=== PATIENT | female | born 1940 | race Caucasian/White ===

== ENCOUNTER 2016-06-06 17:44 | Inpatient (IN) | payer OTHER ==
[2016-06-06] MEDS ORDERED: VANCOMYCIN 1 GRAM (PRE-DOCKED) 250 ML IVPB ONE ×2 (18:31→20:14)
[2016-06-06] MEDS ORDERED: CEFEPIME HCL 2 GM VIAL (RESTRICTED TO ID) IVPB ONE (18:31)
[2016-06-06] MEDS ORDERED: CEFEPIME 2 GM/100 ML BAG PRE-DOCKED IVPB ONE (19:00)
[2016-06-06 20:16] LABS: VENOUS PH 7.47 (7.31-7.41)
[2016-06-06 20:17] LABS: MCH 28.5 pg (25.7-33.7); MCHC 33.9 g/dl (32.0-36.0); MEAN CELL VOLUME 84.1 fl (80-96); MEAN PLT VOLUME 9.9 fl (7.5-11.1); RDW 15.3 % (11.6-15.6); VENOUS BLOOD GAS HCO3 25.7 meq/L (22-29)
[2016-06-06 20:20] LABS: PLATELET COUNT 8 K/MM3 (134-434); WHITE BLOOD COUNT 0.5 K/mm3 (4.0-10.0)
[2016-06-06 20:43] LABS: ALBUMIN 2.2 g/dl (3.4-5.0); ANION GAP 10 (8-16); BILIRUBIN,TOTAL 1.1 mg/dL (0.2-1.0); CALCIUM 8.1 mg/dL (8.5-10.1); CO2 25 mmol/L (21-32); CREATININE 1.1 mg/dL (0.55-1.02); GLUCOSE,RANDOM 155 mg/dL (74-106); TOT PROT 6.9 g/dl (6.4-8.2)
[2016-06-06 20:45] LABS: TROPONIN I < 0.02 ng/ml (0.00-0.05)
[2016-06-06 20:46] LABS: ALK PHOS 101 U/L (45-117); SGOT/AST 25 U/L (15-37); SGPT/ALT 67 U/L (12-78)
--- NOTE | 2016-06-06 20:46 | PDOC ---
History of Present Illness - General History Source: Patient, Family Exam Limitations: No Limitations - History of Present Illness Initial Comments: 06/06/16 22:16 The patient is a 75 year old female with a PMHx of Waldenstrom lymphoma who presents to the ED with fever (Tmax 105) since yesterday. Patient reports weakness and SOB. She reports low appetite. She denies any current pain. The patients daughter states that she fell out of bed four times last night, and fell in the bathroom once. <Farzaneh Murray - Last Filed: 06/07/16 00:54> <Lizbeth Thornton - Last Filed: 06/09/16 13:57> - General Chief Complaint: SIRS, Suspected/Possible Stated Complaint: HIGH FEVER POSSIBLE SEPSIS Time Seen by Provider: 06/06/16 19:42 Past History <Farzaneh Murray - Last Filed: 06/07/16 00:54> - Past Medical History Cancer: Yes (LYMPHOMA SINCE 2003.) - Psycho/Social/Smoking Cessation Hx Anxiety: No Suicidal Ideation: No Smoking History: Former smoker Have you smoked in the past 12 months: No If you are a former smoker, when did you quit?: 1999 Information on smoking cessation initiated: No Hx Alcohol Use: No Drug/Substance Use Hx: No <Lizbeth Thornton - Last Filed: 06/09/16 13:57> - Past Medical History Allergies/Adverse Reactions: Allergies Allergy/AdvReac Type Severity Reaction Status Date / Time No Known Allergies Allergy Verified 06/06/16 18:43 Home Medications: Ambulatory Orders Calcium Carbonate/Vitamin D3 [Calcium 600 + Vit D 200 Tablet] 1 each PO BID 03/12 Gabapentin [Neurontin -] 100 mg PO TID 06/06/16 Gluc Schmitz/Chondro Schmitz A/Vit C/Mn [Glucosamine 1,500 Complex Cp] 1 each PO DAILY 03/12 Montelukast Na [Singulair -] 10 mg PO DAILY 06/06/16 Multivitamin with Minerals [Icaps Plus] 1 each PO DAILY 06/06/16 Omeprazole 20 mg PO DAILY 06/06/16 Valacyclovir HCl [Valtrex -] 500 mg PO BID 06/06/16 Alendronate Na [Fosamax] 70 mg PO Q7D 06/07/16 Biotin 10,000 mcg PO DAILY 06/07/16 Lactobacillus Acidophilus [Acidophilus] 1 each PO DAILY 06/07/16 Magnesium Oxide [Magnesium] 500 mg PO DAILY 06/07/16 Selenium 200 mcg PO DAILY 06/07/16 Vitamin B Complex/Minerals [Sm Stress Formula+Zinc Tablet] 1 each PO DAILY 06/07 Zinc 50 mg PO DAILY 06/07/16 Review of Systems - Review of Systems Comments:: 06/06/16 22:16 GENERAL/CONSTITUTIONAL: + fever, no chills. No weakness. HEAD, EYES, EARS, NOSE AND THROAT: No change in vision. No ear pain or discharge. No sore throat. CARDIOVASCULAR: No chest pain or shortness of breath. RESPIRATORY: No cough, wheezing, or hemoptysis. GASTROINTESTINAL: No nausea, vomiting, diarrhea or constipation. GENITOURINARY: No dysuria, frequency, or change in urination. MUSCULOSKELETAL: No joint or muscle swelling or pain. No neck or back pain. SKIN: No rash NEUROLOGIC: No headache, vertigo, loss of consciousness, or change in strength/ sensation. ENDOCRINE: No increased thirst. No abnormal weight change. HEMATOLOGIC/LYMPHATIC: No anemia, easy bleeding, or history of blood clots. ALLERGIC/IMMUNOLOGIC: No hives or skin allergy. <Farzaneh Murray - Last Filed: 06/07/16 00:54> *Physical Exam - Vital Signs Last Vital Signs Temp Pulse Resp BP Pulse Ox 103.0 F H 114 H 22 99/57 96 06/06/16 18:41 06/06/16 18:41 06/06/16 18:41 06/06/16 18:41 06/06/16 18:41 - Physical Exam Comments: 06/06/16 22:17 GENERAL: Awake, alert, and fully oriented, in no acute distress HEAD: No signs of trauma EYES: PERRLA, EOMI, sclera anicteric, conjunctiva clear ENT: Auricles normal inspection, hearing grossly normal, nares patent, oropharynx clear without exudates. Moist mucosa NECK: Normal ROM, supple, no lymphadenopathy, JVD, or masses LUNGS: Breath sounds equal, clear to auscultation bilaterally. No wheezes, and no crackles HEART: Regular rate and rhythm, normal S1 and S2, no murmurs, rubs or gallops ABDOMEN: Soft, nontender, normoactive bowel sounds. No guarding, no rebound. No masses EXTREMITIES: Normal range of motion, no edema. No clubbing or cyanosis. No cords, erythema, or tenderness NEUROLOGICAL: Cranial nerves II through XII grossly intact. Normal speech, normal gait SKIN: Warm, Dry, normal turgor, no rashes or lesions noted. <Farzaneh Murray - Last Filed: 06/07/16 00:54> - Vital Signs Last Vital Signs Temp Pulse Resp BP Pulse Ox 103.0 F H 114 H 22 99/57 96 06/06/16 18:41 06/06/16 18:41 06/06/16 18:41 06/06/16 18:41 06/06/16 18:41 <Lizbeth Thornton - Last Filed: 06/09/16 13:57> ED Treatment Course - LABORATORY CBC & Chemistry Diagram: 06/06/16 20:00 06/06/16 20:00 - ADDITIONAL ORDERS Additional order review: Laboratory Results 06/06/16 06/06/16 06/06/16 20:00 20:00 20:00 INR PTT (Actin FS) VBG pH POC VBG pCO2 POC VBG pO2 Sodium 137 Potassium 3.7 Chloride 102 Carbon Dioxide 25 Anion Gap 10 BUN 37 H Creatinine 1.1 H Creat Clearance w eGFR 48.55 Random Glucose 155 H Lactic Acid 1.313 Calcium 8.1 L Total Bilirubin 1.1 H AST 25 ALT 67 Alkaline Phosphatase 101 Creatine Kinase 66 Troponin I < 0.02 Total Protein 6.9 Albumin 2.2 L Blood Type O POSITIVE Antibody Screen Positive H Crossmatch See Detail 06/06/16 06/06/16 20:00 20:00 INR 2.10 H PTT (Actin FS) 32.0 VBG pH 7.47 H POC VBG pCO2 35.5 L POC VBG pO2 25.2 L Sodium Potassium Chloride Carbon Dioxide Anion Gap BUN Creatinine Creat Clearance w eGFR Random Glucose Lactic Acid Calcium Total Bilirubin AST ALT Alkaline Phosphatase Creatine Kinase Troponin I Total Protein Albumin Blood Type Antibody Screen Crossmatch 06/06/16 20:00 RBC 2.06 L MCV 84.1 MCHC 33.9 RDW 15.3 MPV 9.9 Neutrophils % 12.0 L Lymphocytes % 80.0 H Monocytes % 6.0 Eosinophils % 2.0 - RADIOLOGY Radiograph Interpretation: 06/07/16 00:54 Chest XRay Reported by Dr. Martin Wu Impression: Mid inspiratory study with diffuse pulmonary interstitial prominence and no consolidated infiltrate - Medications Given in the ED: ED Medications Discontinued Medications Generic Name Dose Route Start Last Admin Trade Name Freq PRN Reason Stop Dose Admin Cefepime HCl 2 gm 06/06/16 19:00 06/06/16 20:58 Maxipime 2gm Ivpb (Pre-Docked) IVPB 06/06/16 19:01 2 gm ONCE ONE Administration Vancomycin HCl 250 mls @ 250 mls/hr 06/06/16 18:31 06/06/16 20:24 Vancomycin (Pre-Docked) IVPB 06/06/16 19:30 250 mls/hr ONCE ONE Administration <Farzaneh Murray - Last Filed: 06/07/16 00:54> - LABORATORY CBC & Chemistry Diagram: 06/09/16 05:00 06/09/16 05:00 - ADDITIONAL ORDERS Additional order review: Laboratory Results 06/06/16 06/06/16 06/06/16 20:00 20:00 20:00 VBG pH 7.47 H POC VBG pCO2 35.5 L POC VBG pO2 25.2 L Sodium 137 Potassium 3.7 Chloride 102 Carbon Dioxide 25 Anion Gap 10 BUN 37 H Creatinine 1.1 H Creat Clearance w eGFR 48.55 Random Glucose 155 H Lactic Acid 1.313 Calcium 8.1 L Total Bilirubin 1.1 H AST 25 ALT 67 Alkaline Phosphatase 101 Creatine Kinase 66 Troponin I < 0.02 Total Protein 6.9 Albumin 2.2 L 06/06/16 20:00 RBC 2.06 L MCV 84.1 MCHC 33.9 RDW 15.3 MPV 9.9 Neutrophils % Y Lymphocytes % Y - Medications Given in the ED: ED Medications Discontinued Medications Generic Name Dose Route Start Last Admin Trade Name Freq PRN Reason Stop Dose Admin Vancomycin HCl 250 mls @ 250 mls/hr 06/06/16 18:31 06/06/16 20:24 Vancomycin (Pre-Docked) IVPB 06/06/16 19:30 250 mls/hr ONCE ONE Administration <Lizbeth Thornton - Last Filed: 06/09/16 13:57> Medical Decision Making - Medical Decision Making 06/06/16 21:07 Patient Name: Ethel Lombardo THIS IS A FINALREPORT FROM [facility] DATE OF SERVICE: 2016-06-06 19:48:39.0 IMAGES: 2 EXAM: Portable chest x-ray HISTORY: Sepsis COMPARISON: None. FINDINGS:Portable AP view of the chest is available. There is poor inspiratory effort with mild interstitial prominence bilaterally. No consolidated infiltrate is seen. The aorta is atherosclerotic. No hilar or mediastinal adenopathy is seen IMPRESSION: Mid inspiratory study with diffuse pulmonary interstitial prominence and no consolidated infiltrate THIS DOCUMENT HAS BEEN ELECTRONICALLY SIGNED 06/06/16 22:[address] Jackson who is covering pt's oncologist, Dr. Torres. Dr. Jackson cannot accept the patient for transfer as it is a weekend and [facility]. He wants me to speak to the ER[facility]Urgent Care at [facility]. I called the ER doc, who will not accept the patient until her Hb is 7 or above and her platelets are 10 or above. Pt will get FFP for elevated INR and PRBC. She will be admitted to the hospitalist service for transfusion. <Lizbeth Thornton - Last Filed: 06/09/16 13:57> *DC/Admit/Observation/Transfer - Attestations Scribe Attestion: 06/06/16 22:17 Documentation prepared by Farzaneh Murray, acting as biomedical specialist for Lizbeth Thornton MD. <Farzaneh Murray - Last Filed: 06/07/16 00:54> - Discharge Dispostion Admit: Yes <Lizbeth Thornton - Last Filed: 06/09/16 13:57> Diagnosis at time of Disposition: Fever, Waldenstrom's disease
[2016-06-06 20:59] LABS: INR 2.1 (0.82-1.09); PROTHROMBIN TIME (PATIENT) 23.4 SEC (9.98-11.88)
[2016-06-06 21:46] LABS: ANISOCYTOSIS 2+; HYPOCHROMIA 2+; MICROCYTOSIS 2+; PLATELET ESTIMATE DECREASED (NORMAL); POLYCHROMASIA 1+; TARGET CELLS 1+
[2016-06-07] MEDS ORDERED: ACETAMINOPHEN 1000 MG/100 ML VIAL (NON FORMULARY) IVPB ONE ×2 (01:37→09:45)
[2016-06-07] MEDS ORDERED: ONDANSETRON 4 MG/2 ML VIAL IVPB PRN (02:16)
[2016-06-07] MEDS ORDERED: SODIUM CHLORIDE 1,000 ML IV SCH (02:30)
[2016-06-07] MEDS ORDERED: ACETAMINOPHEN INJECTION 100 ML IVPB ONE ×2 (02:38→10:04)
--- NOTE | 2016-06-07 02:44 | HP ---
<Ginette Barrera - Last Filed: 06/07/16 02:38> Problem List - Problem (1) Waldenstrom's disease Code(s): C88.0 - WALDENSTROM MACROGLOBULINEMIA (2) Neutropenic fever Code(s): D70.9 - NEUTROPENIA, UNSPECIFIED R50.81 - FEVER PRESENTING WITH CONDITIONS CLASSIFIED ELSEWHERE (3) Pancytopenia Code(s): D61.818 - OTHER PANCYTOPENIA Visit type - Emergency Visit Emergency Visit: Yes Care time: The patient presented to the Emergency Department on the above date and was hospitalized for further evaluation of their emergent condition. - New Patient This patient is new to me today: Yes Date on this admission: 06/07/16 - Critical Care Critical Care patient: Yes Total Critical Care Time (in minutes): 45 Critical Care Statement: The care of this patient involved high complexity decision making to prevent further life threatening deterioration of the patient 's condition and/or to evalute & treat vital organ system(s) failure or risk of failure. <Kalyan Clark - Last Filed: 06/07/16 04:13> CHIEF COMPLAINT: Fever PCP: HISTORY OF PRESENT ILLNESS: ATTENDING PHYSICIAN STATEMENT I saw and evaluated the patient. I reviewed the resident's note and discussed the case with the resident. I agree with the resident's findings and plan as documented. SUBJECTIVE: 75 year old female, accompanied by daughter, presented to the ED with subjective fever Tmax 105F for 2 days. As per the daughter the patient went to receive her normal transfusion 2 days ago with a subjective fever. Daughter stated that after the transfusion the patients fever went down and patient left despite doctors wanting to hold her. Daughter reported that overnight the patients fever spiked to Tmax 105F. Patient reported associated head fogginess and shaking. The patients daughter reported that her mother fell out of bed four times last night. As per daughter, patient passed a blood clot through her nose late yesterday secondary to her falls at home. The patient noted some gum bleeding when brushing her teeth a few days ago. As per daughter patient regularly receives 1 unit transfusions 3 times a week. As per daughter, patient has planned to begin a 3 week cycle of heavy chemotherapy beginning in 2 days so that she may qualify for a bone marrow transplant. The patient denied any blood in her stool, blood in her urine, and sick contacts. ER course was notable for: (1) Neutropenic fever (2) Pancytopenic (3) Waldernstrom's lymphoma Recent Travel: None reported PAST MEDICAL HISTORY: Waldenstroms lymphoma PAST SURGICAL HISTORY: None reported Social History: Smoking: Quit 22 years ago. Alcohol: Denied any use. Drugs: Denied any use. Family History: Father: of prostate cancer. Mother: dementia Allergies No Known Allergies Allergy (Verified 06/06/16 18:43) HOME MEDICATIONS: Home Medications Medication Instructions Recorded Calcium Carbonate/Vitamin D3 1 each PO BID 06/06/16 [Calcium 600 + Vit D 200 Tablet] Gabapentin [Neurontin -] 100 mg PO TID 06/06/16 Gluc Schmitz/Chondro Schmitz A/Vit C/Mn 1 each PO DAILY 06/06/16 [Glucosamine 1,500 Complex Cp] Montelukast Na [Singulair -] 10 mg PO DAILY 06/06/16 Multivitamin with Minerals [Icaps 1 each PO DAILY 06/06/16 Plus] Omeprazole 20 mg PO DAILY 06/06/16 Valacyclovir HCl [Valtrex -] 500 mg PO BID 06/06/16 REVIEW OF SYSTEMS CONSTITUTIONAL: Present: Fever Absent: chills, diaphoresis, generalized weakness, malaise, loss of appetite, weight change HEENT: Absent: rhinorrhea, nasal congestion, throat pain, throat swelling, difficulty swallowing, mouth swelling, ear pain, eye pain, visual changes CARDIOVASCULAR: Absent: chest pain, syncope, palpitations, irregular heart rate, lightheadedness , peripheral edema RESPIRATORY: Absent: cough, shortness of breath, dyspnea with exertion, orthopnea, wheezing, stridor, hemoptysis GASTROINTESTINAL: Absent: abdominal pain, abdominal distension, nausea, vomiting, diarrhea, constipation, melena, hematochezia GENITOURINARY: Absent: dysuria, frequency, urgency, hesitancy, hematuria, flank pain, genital pain MUSCULOSKELETAL: Absent: myalgia, arthralgia, joint swelling, back pain, neck pain SKIN: Absent: rash, itching, pallor HEMATOLOGIC/IMMUNOLOGIC: Absent: easy bleeding, easy bruising, lymphadenopathy, frequent infections ENDOCRINE: Absent: unexplained weight gain, unexplained weight loss, heat intolerance, cold intolerance NEUROLOGIC: Present: Head fogginess, shakes Absent: Focal weakness or paresthesias, dizziness, unsteady gait, seizure, mental status changes, bladder or bowel incontinence PSYCHIATRIC: Absent: anxiety, depression, suicidal or homicidal ideation, hallucinations. PHYSICAL EXAMINATION GENERAL: Awake, alert, and fully oriented, in no acute distress. (+) Febrile HEAD: Normal with no signs of trauma. EYES: Pupils equal, round and reactive to light, extraocular movements intact, sclera anicteric, conjunctiva clear. No lid lag. EARS, NOSE, THROAT: (+) Nose bruise. Ears normal, oropharynx clear without exudates. Moist mucous membranes. NECK: Normal range of motion, supple without lymphadenopathy, JVD, or masses. LUNGS: Breath sounds equal, clear to auscultation bilaterally. No wheezes, and no crackles. No accessory muscle use. HEART: Regular rate and rhythm, normal S1 and S2 without murmur, rub or gallop. ABDOMEN: Soft, nontender, not distended, normoactive bowel sounds, no guarding, no rebound, no masses. No hepatomegaly or splenomegaly. MUSCULOSKELETAL: Normal range of motion at all joints. No bony deformities or tenderness. No CVA tenderness. UPPER EXTREMITIES: 2+ pulses, warm, well-perfused. No cyanosis. No clubbing. Cap refill <2 seconds. No peripheral edema. LOWER EXTREMITIES: (+) Petechiae RLE and bilaterally at the knees. 2+ pulses, warm, well-perfused. No calf tenderness. No peripheral edema. NEUROLOGICAL: Cranial nerves II-XII intact. Normal speech. Normal gait. PSYCHIATRIC: Cooperative. Good eye contact. Appropriate mood and affect. SKIN: Warm, dry, normal turgor, no rashes or lesions noted. ASSESSMENT/PLAN: Neutropenic fever -IVF -Tylenol PRN -Continue with Cefepime daily -ID consult -Reverse isolation -Follow blood cultures -Absolute nucleophile count Pancytopenic-Discussed with lab about blood transfusion and patient has +H antibody so further evaluation is needed and blood will not be available until later today. However, we will transfuse platelets and FFP once patient is febrile. -Transfused Leukocyte reduced PRBC 1 unit -FFP -Repeat CBC post transfusion Waldernstrom's lymphoma -Hematology and oncology consult with Dr. Baker No DVT PPX -Due to low platelet count Plans discussed with patient and daughter and they expressed understanding Admit to Med surg. Documentation prepared by Kalyan Clark, acting as spanish medical interpreter for Dr. Ginette Barrera MD.
[2016-06-07] MEDS ORDERED: SODIUM CHLORIDE 500 ML IV STA ×2 (04:49→09:14)
[2016-06-07 06:16] LABS: MCH 28.6 pg (25.7-33.7); MCHC 33.9 g/dl (32.0-36.0); MEAN CELL VOLUME 84.3 fl (80-96); MEAN PLT VOLUME 7.2 fl (7.5-11.1); RDW 15.3 % (11.6-15.6)
[2016-06-07 06:26] LABS: WHITE BLOOD COUNT 0.3 K/mm3 (4.0-10.0)
[2016-06-07 06:27] LABS: PLATELET COUNT 13 K/MM3 (134-434)
[2016-06-07 07:05] LABS: URINE APPEARANCE SLCLOUDY; URINE BILIRUBIN NEGATIVE (NEGATIVE); URINE BLOOD NEGATIVE (NEGATIVE); URINE COLOR DKYELLOW; URINE GLUCOSE (UA) NEGATIVE (NEGATIVE); URINE KETONE NEGATIVE (NEGATIVE); URINE LEUK ESTERASE NEGATIVE (NEGATIVE); URINE NITRITE POSITIVE (NEGATIVE); URINE PROTEIN NEGATIVE (NEGATIVE); URINE UROBILINOGEN NEGATIVE E.U./dl (0.2-1.0)
[2016-06-07 07:10] LABS: URINE BACTERIA MANY /hpf (NONE SEEN); URINE MUCUS RARE; URINE RBC 1 /hpf (0-3); URINE WBC 3 /hpf (3-5)
[2016-06-07 07:53] LABS: ALBUMIN 2.1 g/dl (3.4-5.0)
[2016-06-07 08:18] LABS: CALCIUM 7.5 mg/dL (8.5-10.1)
[2016-06-07] MEDS ORDERED: SODIUM CHLORIDE 0.9% 1000 ML INFUS.BAG IV ONE (08:23)
[2016-06-07] MEDS ORDERED: CEFEPIME 100 ML IVPB ONE (08:40)
[2016-06-07] MEDS: DOPAMINE 400 MG/D5W - 250 ML IVPB SCH (08:45)
[2016-06-07] MEDS ORDERED: CEFEPIME 2 GM/100 ML BAG PRE-DOCKED IVPB ONE ×2 (09:00→10:00)
[2016-06-07] MEDS ORDERED: LIDOCAINE HCL 2% (20ML MULTI-DOSE VIAL) NR ONE (09:00)
--- NOTE | 2016-06-07 09:15 | PN ---
Progress Note (short form) - Note Progress Note: Subjective: feels tired. has no light headedness or visual changes , has no cp or palpitations or SOB. had fever since Wednesday last night, denies any diarrhea , or abd pain. has no urinary sx . no cough or sputum production . last time she received blood transfusion Wednesday. Last time she had Daratumunab was two weeks ago. In ER she received 1 unit of PLT , , 500 cc bolus of NS , and one dose of cefepime and vanco at 8 pm last night . blood cx was sent Objective: Vital Signs: Last Vital Signs Temp Pulse Resp BP Pulse Ox 97.9 F 97 H 18 75/50 98 06/07/16 08:07 06/07/16 08:07 06/07/16 08:07 06/07/16 08:07 06/07/16 08:07 I&O: Intake & Output 06/04/16 06/05/16 06/06/16 06/07/16 23:59 23:59 23:59 23:59 Weight 130 lb Physical Exam: NAd, awake alert and oriented x3 . pale and looks ill HEENT: no facial droop, round equal pupils , reactive to light , nl oropharynx , petechiae on soft palate . no exudate . dry MM no LAP in neck CV: RRR, tachy, no MRG Lungs : CTAB Abd: soft, NT, ND, NL BS Ext : no edema or erythema over upper or lower ext . bruises over the knees, no effusion Labs: Laboratory Results - last 24 hr 06/06/16 06/06/16 06/06/16 20:00 20:00 20:00 WBC 0.5 L RBC 2.06 L Hgb 5.9 L* Hct 17.3 L MCV 84.1 MCHC 33.9 RDW 15.3 Plt Count 8 L* MPV 9.9 Neutrophils % 12.0 L Lymphocytes % 80.0 H Monocytes % 6.0 Eosinophils % 2.0 Platelet Estimate Decreased Platelet Comment No clumping noted Polychromasia 1+ Hypochromic-Microcytic 2+ Basophilic Stippling Few Anisocytosis 2+ Microcytosis 2+ Target Cells 1+ INR 2.10 H PTT (Actin FS) 32.0 VBG pH 7.47 H POC VBG pCO2 35.5 L POC VBG pO2 25.2 L Sodium Potassium Chloride Carbon Dioxide Anion Gap BUN Creatinine Creat Clearance w eGFR Random Glucose Lactic Acid Calcium Total Bilirubin AST ALT Alkaline Phosphatase Creatine Kinase Troponin I Total Protein Albumin Urine Color Urine Appearance Urine pH Ur Specific [place] Urine Protein Urine Glucose (UA) Urine Ketones Urine Blood Urine Nitrite Urine Bilirubin Urine Urobilinogen Ur Leukocyte Esterase Urine RBC Urine WBC Ur Epithelial Cells Urine Bacteria Urine Mucus Anti-A Titer Blood Type Antibody Screen Crossmatch 06/06/16 06/06/16 06/06/16 20:00 20:00 20:00 WBC RBC Hgb Hct MCV MCHC RDW Plt Count MPV Neutrophils % Lymphocytes % Monocytes % Eosinophils % Platelet Estimate Platelet Comment Polychromasia Hypochromic-Microcytic Basophilic Stippling Anisocytosis Microcytosis Target Cells INR PTT (Actin FS) VBG pH POC VBG pCO2 POC VBG pO2 Sodium 137 Potassium 3.7 Chloride 102 Carbon Dioxide 25 Anion Gap 10 BUN 37 H Creatinine 1.1 H Creat Clearance w eGFR 48.55 Random Glucose 155 H Lactic Acid 1.313 Calcium 8.1 L Total Bilirubin 1.1 H AST 25 ALT 67 Alkaline Phosphatase 101 Creatine Kinase 66 Troponin I < 0.02 Total Protein 6.9 Albumin 2.2 L Urine Color Urine Appearance Urine pH Ur Specific [place] Urine Protein Urine Glucose (UA) Urine Ketones Urine Blood Urine Nitrite Urine Bilirubin Urine Urobilinogen Ur Leukocyte Esterase Urine RBC Urine WBC Ur Epithelial Cells Urine Bacteria Urine Mucus Anti-A Titer Blood Type O POSITIVE Antibody Screen Positive H Crossmatch See Detail 06/07/16 06/07/16 06/07/16 00:06 06:10 06:10 WBC 0.3 L* D RBC 1.55 L D Hgb 4.4 L* D Hct 13.0 L MCV 84.3 MCHC 33.9 RDW 15.3 Plt Count 13 L* D MPV 7.2 L D Neutrophils % Lymphocytes % Monocytes % Eosinophils % Platelet Estimate Platelet Comment Polychromasia Hypochromic-Microcytic Basophilic Stippling Anisocytosis Microcytosis Target Cells INR PTT (Actin FS) VBG pH POC VBG pCO2 POC VBG pO2 Sodium 141 Potassium 3.5 Chloride 107 Carbon Dioxide 23 Anion Gap 11 BUN 35 H Creatinine 1.0 Creat Clearance w eGFR 54.20 Random Glucose Lactic Acid Calcium 7.5 L Total Bilirubin 1.0 AST 17 D ALT 51 D Alkaline Phosphatase 77 D Creatine Kinase Troponin I Total Protein 6.0 L Albumin 2.1 L Urine Color Urine Appearance Urine pH Ur Specific [place] Urine Protein Urine Glucose (UA) Urine Ketones Urine Blood Urine Nitrite Urine Bilirubin Urine Urobilinogen Ur Leukocyte Esterase Urine RBC Urine WBC Ur Epithelial Cells Urine Bacteria Urine Mucus Anti-A Titer Cancelled Blood Type Cancelled Antibody Screen Crossmatch 06/07/16 06:44 WBC RBC Hgb Hct MCV MCHC RDW Plt Count MPV Neutrophils % Lymphocytes % Monocytes % Eosinophils % Platelet Estimate Platelet Comment Polychromasia Hypochromic-Microcytic Basophilic Stippling Anisocytosis Microcytosis Target Cells INR PTT (Actin FS) VBG pH POC VBG pCO2 POC VBG pO2 Sodium Potassium Chloride Carbon Dioxide Anion Gap BUN Creatinine Creat Clearance w eGFR Random Glucose Lactic Acid Calcium Total Bilirubin AST ALT Alkaline Phosphatase Creatine Kinase Troponin I Total Protein Albumin Urine Color Dkyellow Urine Appearance Slcloudy Urine pH 5.0 Ur Specific [place] 1.013 Urine Protein Negative Urine Glucose (UA) Negative Urine Ketones Negative Urine Blood Negative Urine Nitrite Positive Urine Bilirubin Negative Urine Urobilinogen Negative Ur Leukocyte Esterase Negative Urine RBC 1 Urine WBC 3 Ur Epithelial Cells Rare Urine Bacteria Many Urine Mucus Rare Anti-A Titer Blood Type Antibody Screen Crossmatch Imaging: cxray reviewed. 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 She was found to be in septic shock and bacteremic 1- Spetic shock . due to G - Rods bacteremia in this immuno-compromised patient with pancytopenia. SP in 70s after 500 cc bolus. about a liter in ambulance and 350 cc of abx - give another 500 cc bolus . - start dopamine gtt as a pressor - give cefepime and vanco ( last received 8 pm ) . will dose cefepime q 12 due to Cr clearance of 46. - unfortunately can't place a central line due to thrombocytopenia . will place EJ and has 2 peripheral lines - follow CBC , Lactate , and repeat blood cx - will need blood transfusion, to stabilize but she has abs ( specifically Ab H ) , spoke to blood bank and will try to contact [place] [facility] at . to coordinate . - spoke to Dr. Ventura who accepted to ICU . 2- Pancytopenia ,with severe anemia and thrombocytopenia , due to BM infiltrate ( Waldenstrom's ) and chemo ( last received Daratumunab 2 weeks ago) . - spoke to [facility] , and blood bank . compatible blood is not available due to Abx , might take hours. - advise from [facility] to give the less harmful available incompatible blood if needed waiting for compatible blood. will premedicate with benadryl, tylenol and prednisone - Dr. Torres [phone] , [facility] . - will give one unit of pLT now . - her baseline Hb 7-8 - heme consult 3- RADHAMES : probably due to sepsis and volume depletion . Cr improved with IVF 4- Code status :d/w pt who has capacity . DNR/DNI Dispo :admit to ICU as critically ill . Visit type - Emergency Visit Emergency Visit: Yes ED Registration Date: 06/07/16 Care time: The patient presented to the Emergency Department on the above date and was hospitalized for further evaluation of their emergent condition. - New Patient This patient is new to me today: Yes Date on this admission: 06/07/16 - Critical Care Critical Care patient: Yes Total Critical Care Time (in minutes): 90 Critical Care Statement: The care of this patient involved high complexity decision making to prevent further life threatening deterioration of the patient 's condition and/or to evalute & treat vital organ system(s) failure or risk of failure.
[2016-06-07] MEDS ORDERED: VANCOMYCIN 1 GRAM (PRE-DOCKED) 250 ML IVPB ONE (09:30)
[2016-06-07] MEDS ORDERED: predniSONE 20 MG TABLET (UD) PO ONE (09:45)
[2016-06-07] MEDS ORDERED: CEFEPIME HCL 2 GM VIAL (RESTRICTED TO ID) IVPB ONE (10:00)
[2016-06-07] MEDS ORDERED: PIPERACILLIN/TAZOB 3.375 GM 50 ML IVPB SCH (10:00)
[2016-06-07] MEDS ORDERED: predniSONE 20 MG TABLET (UD) ONE (10:04)
[2016-06-07] MEDS ORDERED: PIPERACILLIN/TAZOB 3.375 GM 50 ML IVPB ONE (10:05)
[2016-06-07] MEDS: SODIUM CHLORIDE 1,000 ML IV SCH (10:10)
[2016-06-07 12:38] VITALS: BMI 20.8
--- NOTE | 2016-06-07 12:43 | CONSULT ---
Consult Consult Specialty:: PULMONARY/CCM Referred by:: Dr. Trinh Reason for Consultation:: neutropenic sepsis - History of Present Illness Chief Complaint: fever History of Present Illness: 75yo female with h/o Waldenstrom's macroglobulinemia, pancytopenia, followed at [facility] getting multiple blood products who presents with generalized malaise and fevers to 105 x 2 days. She denies any cough but with mild shortness of breath. Has been experiencing epistaxis described as blood clots. Mild nausea but no vomiting or abdominal pain. No dysuria or hematuria. No diarrhea, bloody or dark stools. No recent travel or sick contacts. States that her baseline BP is 90/60. She is considering undergoing bone marrow transplant at [place]. Did not receive her flu shot and does not remember when her last pneumovas was. She did report some oral sores a few days ago which have since resolved. - History Source History Provided By: Patient, Family Member Limitations to Obtaining History: Clinical Condition - Past Medical History Heme/Onc: Yes: Other (Waldenstrom's Macroglobulinemia) - Past Surgical History Past Surgical History: Yes: Hysterectomy, Tonsillectomy Additional Surgical History: right hip repair, right wrist surgery - Alcohol/Substance Use Hx Alcohol Use: No - Smoking History Smoking history: Former smoker Have you smoked in the past 12 months: No If you are a former smoker, when did you quit?: 1999 Home Medications - Allergies Allergies/Adverse Reactions: Allergies Allergy/AdvReac Type Severity Reaction Status Date / Time No Known Allergies Allergy Verified 06/06/16 18:43 - Home Medications Home Medications: Ambulatory Orders Calcium Carbonate/Vitamin D3 [Calcium 600 + Vit D 200 Tablet] 1 each PO BID 03/12 Gabapentin [Neurontin -] 100 mg PO TID 06/06/16 Gluc Schmitz/Chondro Schmitz A/Vit C/Mn [Glucosamine 1,500 Complex Cp] 1 each PO DAILY 03/12 Montelukast Na [Singulair -] 10 mg PO DAILY 06/06/16 Multivitamin with Minerals [Icaps Plus] 1 each PO DAILY 06/06/16 Omeprazole 20 mg PO DAILY 06/06/16 Valacyclovir HCl [Valtrex -] 500 mg PO BID 06/06/16 Alendronate Na [Fosamax] 70 mg PO Q7D 06/07/16 Biotin 10,000 mcg PO DAILY 06/07/16 Lactobacillus Acidophilus [Acidophilus] 1 each PO DAILY 06/07/16 Magnesium Oxide [Magnesium] 500 mg PO DAILY 06/07/16 Selenium 200 mcg PO DAILY 06/07/16 Vitamin B Complex/Minerals [Sm Stress Formula+Zinc Tablet] 1 each PO DAILY 06/07 Zinc 50 mg PO DAILY 06/07/16 Review of Systems - Review of Systems Constitutional: reports: Chills, Fever, Lethargy, Loss of Appetite, Malaise, Weakness Eyes: denies: Recent Change in Vision HENT: reports: Epistaxis. denies: Throat Pain Cardiovascular: reports: Shortness of Breath. denies: Chest Pain, Edema, Palpitations Respiratory: denies: Cough, Hemoptysis, SOB, SOB on Exertion, Wheezing Gastrointestinal: reports: Nausea. denies: Abdominal Pain, Vomiting Genitourinary: denies: Dysuria, Hematuria Neurological: denies: Dizziness, Headache Hematology/Lymphatic: reports: Easily Bruised Physical Exam Vital Signs: Vital Signs Temperature 98.9 F 06/07/16 11:12 Pulse Rate 114 H 06/07/16 11:45 Respiratory Rate 20 06/07/16 11:45 Blood Pressure 97/53 06/07/16 11:45 O2 Sat by Pulse Oximetry (%) 97 06/07/16 11:45 Constitutional: Yes: Anxious, Mild Distress, Pallor Eyes: Yes: Conjunctiva Clear, EOM Intact HENT: Yes: Atraumatic, Normocephalic, Epistaxis Neck: Yes: Supple, Trachea Midline. No: Lymphadenopathy, Tenderness Cardiovascular: Yes: Regular Rate and Rhythm Respiratory: Yes: Regular, Rales (left base) Gastrointestinal: Yes: Normal Bowel Sounds, Soft. No: Tenderness Edema: No Integumentary: Yes: Bruising, Petechiae Neurological: Yes: Alert, Oriented Labs: CBC, BMP 06/07/16 06:10 06/07/16 06:10 Imaging - Results Chest X-ray: Report Reviewed, Image Reviewed (no infiltrates) Problem List - Problems (1) Fever Code(s): R50.9 - FEVER, UNSPECIFIED (2) Neutropenic fever Code(s): D70.9 - NEUTROPENIA, UNSPECIFIED R50.81 - FEVER PRESENTING WITH CONDITIONS CLASSIFIED ELSEWHERE (3) Pancytopenia Code(s): D61.818 - OTHER PANCYTOPENIA (4) Waldenstrom's disease Code(s): C88.0 - WALDENSTROM MACROGLOBULINEMIA (5) Thrombocytopenia Code(s): D69.6 - THROMBOCYTOPENIA, UNSPECIFIED (6) Anemia Code(s): D64.9 - ANEMIA, UNSPECIFIED (7) Sepsis Code(s): A41.9 - SEPSIS, UNSPECIFIED ORGANISM (8) Shock Code(s): R57.9 - SHOCK, UNSPECIFIED (9) Septic shock Code(s): A41.9 - SEPSIS, UNSPECIFIED ORGANISM R65.21 - SEVERE SEPSIS WITH SEPTIC SHOCK (10) Gram-negative bacteremia Code(s): R78.81 - BACTEREMIA Assessment/Plan Neutropenic Sepsis Gram Negative Bacteremia Septic Waldenstrom's Macroglobulinemia Severe Anemia Severe Thrombocytopenia Epistaxis Septic vs Hypovolemic Shock - broad sprectrum antibiotics - f/u cultures - ID evaluation - IVF resuscitation - dopamine support as pt too thrombocytopenic for central line placement for now, pt's baseline BP 90/60 - transfuse PRBC, platelets - monitor CBC, coags - O2 to keep spO2 >90% - repeat CXR in AM - ?pneumonia as infectious sourse as pt has rales on exam - neutropenic precautions - transfer to [facility] when stable - DVT prophylaxis - ICU monitoring if stays here Thank you for this consult Mark Ventura MD
--- NOTE | 2016-06-07 13:32 | CONSULT ---
Consult - text type - Consultation Consultation Note: Consult Specialty:: HEMATOLOGY / ONCOLOGY Referred by:: Dr. Trinh Reason for Consultation:: Blood type incompatibility - History of Present Illness Chief Complaint: fever History of Present Illness: 75yo female with h/o Waldenstrom's macroglobulinemia, pancytopenia, followed at [facility] who started having fevers on Wednesday when she went for blood transfusions, The fever increased and she became delirious yesterday and the family brought her here. No h/o of UTI symptoms. The family reports her mental status has improved now and the neutropenia has been persistent for a long time. She has had a h/o of Waldenstroms for many years and has been on several treatment including CAR T cells at [place] and more recently on daratumumab. They were advised about the problem of blood typing difficulties with daratumumab. - History Source History Provided By: Patient, Family Member Limitations to Obtaining History: Clinical Condition - Past Medical History Heme/Onc: Yes: Other (Waldenstrom's Macroglobulinemia) - Past Surgical History Past Surgical History: Yes: Hysterectomy, Tonsillectomy Additional Surgical History: right hip repair, right wrist surgery - Alcohol/Substance Use Hx Alcohol Use: No - Smoking History Smoking history: Former smoker Have you smoked in the past 12 months: No If you are a former smoker, when did you quit?: 1999 Home Medications - Allergies Allergies/Adverse Reactions: Allergies Allergy/AdvReac Type Severity Reaction Status Date / Time No Known Allergies Allergy Verified 06/06/16 18:43 - Home Medications Home Medications: Ambulatory Orders Calcium Carbonate/Vitamin D3 [Calcium 600 + Vit D 200 Tablet] 1 each PO BID 03/12 Gabapentin [Neurontin -] 100 mg PO TID 06/06/16 Gluc Schmitz/Chondro Schmitz A/Vit C/Mn [Glucosamine 1,500 Complex Cp] 1 each PO DAILY 03/12 Montelukast Na [Singulair -] 10 mg PO DAILY 06/06/16 Multivitamin with Minerals [Icaps Plus] 1 each PO DAILY 06/06/16 Omeprazole 20 mg PO DAILY 06/06/16 Valacyclovir HCl [Valtrex -] 500 mg PO BID 06/06/16 Alendronate Na [Fosamax] 70 mg PO Q7D 06/07/16 Biotin 10,000 mcg PO DAILY 06/07/16 Lactobacillus Acidophilus [Acidophilus] 1 each PO DAILY 06/07/16 Magnesium Oxide [Magnesium] 500 mg PO DAILY 06/07/16 Selenium 200 mcg PO DAILY 06/07/16 Vitamin B Complex/Minerals [Sm Stress Formula+Zinc Tablet] 1 each PO DAILY 06/07 Zinc 50 mg PO DAILY 06/07/16 Review of Systems - Review of Systems unable to obtian due to patients condition Physical Exam Vital Signs: Vital Signs Period Temp Pulse Resp BP Sys/Hilton Pulse Ox Last 24 Hr 97.8 F-103.0 F 83-118 18-22 69-103/42-63 95-99 Constitutional: Yes: mostly sleeping Eyes: Yes: Conjunctiva Clear, EOM Intact HENT: Yes: Atraumatic, Normocephalic, Epistaxis Neck: Yes: Supple, Trachea Midline. No: Lymphadenopathy, Tenderness Cardiovascular: Yes: Regular Rate and Rhythm Respiratory: Yes: Regular, Rales (left base) Gastrointestinal: Yes: Normal Bowel Sounds, Soft. No: Tenderness Edema: No Integumentary: Yes: no petechiae noted Neurological: Yes: Alert, Oriented but drifts back to sleep Labs: CBC, BMP 06/07/16 06:10 06/07/16 06:10 Active Medications Generic Name Dose Route Start Last Admin Trade Name Freq PRN Reason Stop Dose Admin Acetaminophen 650 mg 06/07/16 02:16 Tylenol - PO Q6H PRN FEVER OR PAIN Cefepime HCl 2 gm 06/07/16 21:00 Maxipime 2gm Ivpb (Pre-Docked) IVPB BID OPAL Protocol Dopamine HCl/Dextrose 250 mls @ 11.056 mls/hr 06/07/16 08:45 06/07/16 12:50 Dopamine 400 Mg/D5w - IVPB 4.97 mcg/kg/min TITR OPAL Titration Protocol 5 MCG/KG/MIN Sodium Chloride 1,000 mls @ 100 mls/hr 06/07/16 09:45 06/07/16 10:10 Normal Saline - IV 100 mls/hr ASDIR OPAL Administration Piperacillin Sod/Tazobactam Sod 50 mls @ 100 mls/hr 06/07/16 10:00 06/07/16 10: 10 Zosyn 3.375gm Ivpb (Pre-Docked) IVPB 100 mls/hr Q8H-IV OPAL Administration Protocol Ondansetron HCl 4 mg 06/07/16 02:16 Zofran Injection IVPB Q6H PRN NAUSEA Imaging - Results Chest X-ray: Report Reviewed, Image Reviewed (no infiltrates) Blood typing incompatibility : In the morning I spoke with the blood bank and . Since we were unable to obtain an accurate typing on her (most likely due to the drug daratumomab itself ) we decided to proceed with the least incompatible blood. The specialised typing had to be sent to [place]. But we got 1 compatible unit for her which was then transfused. Will keep platelets >15 -20 in light of sepsis ER attending s already contacted Dr. Torres [phone] , her director of coding at [place] They are planning to transfer her to [place] when stable I have explained all this to the family at this time. Neutropenic sepsis and septic shock : Blood cx showing gram negative rods continue cefepime till cx results come back ID consult on dopamine for BP support Problem List - Problems (1) Fever Code(s): R50.9 - FEVER, UNSPECIFIED (2) Neutropenic fever Code(s): D70.9 - NEUTROPENIA, UNSPECIFIED R50.81 - FEVER PRESENTING WITH CONDITIONS CLASSIFIED ELSEWHERE (3) Pancytopenia Code(s): D61.818 - OTHER PANCYTOPENIA (4) Waldenstrom's disease Code(s): C88.0 - WALDENSTROM MACROGLOBULINEMIA (5) Thrombocytopenia Code(s): D69.6 - THROMBOCYTOPENIA, UNSPECIFIED (6) Anemia Code(s): D64.9 - ANEMIA, UNSPECIFIED (7) Sepsis Code(s): A41.9 - SEPSIS, UNSPECIFIED ORGANISM (8) Shock Code(s): R57.9 - SHOCK, UNSPECIFIED (9) Septic shock Code(s): A41.9 - SEPSIS, UNSPECIFIED ORGANISM R65.21 - SEVERE SEPSIS WITH SEPTIC SHOCK (10) Gram-negative bacteremia Code(s): R78.81 - BACTEREMIA
--- NOTE | 2016-06-07 16:42 | CONSULT ---
Consult Consult Specialty:: infectious diseases Referred by:: Reason for Consultation:: fever,bactermia - History of Present Illness Chief Complaint: fever History of Present Illness: 75yo female with h/o Waldenstrom's macroglobulinemia, pancytopenia, followed at [facility] who started having fevers on Wednesday when she went for blood transfusions, The fever increased and she became delirious yesterday and the family brought her here. The family reports her mental status has improved now and the neutropenia has been persistent for a long time. She has had a h/o of Waldenstroms for many years and has been on several treatment including CAR T cells at [place] and more recently on daratumumab. They were advised about the problem of blood typing difficulties with daratumumab. patient looking better according to the daughter patient has had a h/o of typhlitis in the past work up now finds that patient has bacteremia growing in the blood - History Source History Provided By: Patient, Family Member Limitations to Obtaining History: No Limitations - Past Surgical History Past Surgical History: Yes: Hysterectomy, Tonsillectomy Additional Surgical History: right hip repair, right wrist surgery - Alcohol/Substance Use Hx Alcohol Use: No - Smoking History Smoking history: Former smoker Have you smoked in the past 12 months: No If you are a former smoker, when did you quit?: 1999 Home Medications - Allergies Allergies/Adverse Reactions: Allergies Allergy/AdvReac Type Severity Reaction Status Date / Time No Known Allergies Allergy Verified 06/06/16 18:43 - Home Medications Home Medications: Ambulatory Orders Calcium Carbonate/Vitamin D3 [Calcium 600 + Vit D 200 Tablet] 1 each PO BID 03/12 Gabapentin [Neurontin -] 100 mg PO TID 06/06/16 Gluc Schmitz/Chondro Schmitz A/Vit C/Mn [Glucosamine 1,500 Complex Cp] 1 each PO DAILY 03/12 Montelukast Na [Singulair -] 10 mg PO DAILY 06/06/16 Multivitamin with Minerals [Icaps Plus] 1 each PO DAILY 06/06/16 Omeprazole 20 mg PO DAILY 06/06/16 Valacyclovir HCl [Valtrex -] 500 mg PO BID 06/06/16 Alendronate Na [Fosamax] 70 mg PO Q7D 06/07/16 Biotin 10,000 mcg PO DAILY 06/07/16 Lactobacillus Acidophilus [Acidophilus] 1 each PO DAILY 06/07/16 Magnesium Oxide [Magnesium] 500 mg PO DAILY 06/07/16 Selenium 200 mcg PO DAILY 06/07/16 Vitamin B Complex/Minerals [Sm Stress Formula+Zinc Tablet] 1 each PO DAILY 06/07 Zinc 50 mg PO DAILY 06/07/16 Review of Systems - Review of Systems Constitutional: reports: Fever, Lethargy, Weakness Eyes: reports: No Symptoms HENT: reports: No Symptoms Neck: reports: No Symptoms Cardiovascular: reports: No Symptoms Respiratory: reports: No Symptoms Gastrointestinal: reports: No Symptoms Genitourinary: reports: No Symptoms Musculoskeletal: reports: No Symptoms Integumentary: reports: No Symptoms Neurological: reports: Confusion Endocrine: reports: No Symptoms Hematology/Lymphatic: reports: No Symptoms Psychiatric: reports: No Symptoms Physical Exam Vital Signs: Vital Signs Temperature 98.2 F 06/07/16 12:53 Pulse Rate 97 H 06/07/16 16:38 Respiratory Rate 20 06/07/16 16:38 Blood Pressure 94/61 06/07/16 16:38 O2 Sat by Pulse Oximetry (%) 98 06/07/16 16:38 Constitutional: Yes: Calm, Thin Eyes: Yes: Conjunctiva Clear HENT: Yes: Atraumatic, Normocephalic, Other (ej in place) Neck: Yes: Supple Cardiovascular: Yes: Regular Rate and Rhythm Respiratory: Yes: Regular, CTA Bilaterally Gastrointestinal: Yes: Normal Bowel Sounds, Soft, Distention. No: Tenderness Musculoskeletal: Yes: WNL Extremities: Yes: WNL Neurological: Yes: Alert, Oriented Psychiatric: Yes: Alert Labs: CBC, BMP 06/07/16 06:10 06/07/16 06:10 Imaging - Results Chest X-ray: Report Reviewed, Image Reviewed Assessment/Plan Neutropenic fever Pancytopenic Waldernstrom's lymphoma fever bacteremia gram negative dehydration plan iv fluids ct scan of the abdomen will double cover her for gram negative close monitoring if patients blood cx dont turn negative will change the line cc time 50 min
[2016-06-07] MEDS: MEROPENEM 1 GM in DEXTROSE 5%-WATER - 100 ML IVPB SCH (18:40)
[2016-06-07 19:00] LABS: MCH 28.2 pg (25.7-33.7); MCHC 33.7 g/dl (32.0-36.0); MEAN CELL VOLUME 83.7 fl (80-96); MEAN PLT VOLUME 8.3 fl (7.5-11.1); RDW 15.5 % (11.6-15.6)
[2016-06-07 19:06] LABS: PLATELET COUNT 17 K/MM3 (134-434); WHITE BLOOD COUNT 0.3 K/mm3 (4.0-10.0)
[2016-06-07] MEDS: CEFEPIME 2 GM/100 ML BAG PRE-DOCKED IVPB SCH (21:20)
[2016-06-07] MEDS ORDERED: ZOLPIDEM TARTRATE 5 MG TABLET PO ONE (21:55)
[2016-06-08] MEDS: MEROPENEM 1 GM in DEXTROSE 5%-WATER - 100 ML IVPB SCH ×3 (01:21→17:46)
[2016-06-08] MEDS ORDERED: PT OWN MED DRAWER 7, Y5N ONE ×3 (01:24→23:59)
[2016-06-08] MEDS ORDERED: DOPAMINE 400 MG/D5W - 250 ML IVPB ONE (01:24)
[2016-06-08] MEDS ORDERED: morphine CARPU-JECT 2 MG/1 ML DISP.SYRIN IVPUSH ONE (05:38)
[2016-06-08 06:15] LABS: MCH 28.9 pg (25.7-33.7); MCHC 34.6 g/dl (32.0-36.0); MEAN CELL VOLUME 83.4 fl (80-96); MEAN PLT VOLUME 7.9 fl (7.5-11.1); RDW 15.6 % (11.6-15.6); WHITE BLOOD COUNT 0.7 K/mm3 (4.0-10.0)
[2016-06-08 06:41] LABS: PLATELET COUNT 17 K/MM3 (134-434)
[2016-06-08 07:05] LABS: MAGNESIUM 2.7 mg/dL (1.8-2.4)
[2016-06-08 07:07] LABS: PHOSPHOROUS 2.2 mg/dL (2.5-4.9)
--- NOTE | 2016-06-08 08:55 | PN ---
Physical Exam: SUBJECTIVE: Patient seen and examined feels a little tired, some pain in her sacrum. denies chest pain, sob, headache, abdominal pain, dysuria, cough, fever, chills. OBJECTIVE: Vital Signs Period Temp Pulse Resp BP Sys/Hilton Pulse Ox Last 24 Hr 98.0 F-100.4 F 83-118 18-25 79-103/45-64 95-100 GENERAL: The patient is awake, alert, and fully oriented, in no acute distress. HEAD: Normal with no signs of trauma. EYES: PERRL, extraocular movements intact, sclera anicteric, conjunctiva clear. No ptosis. ENT: Ears normal, nares patent, oropharynx clear without exudates, few small petechia on palate above uvula, moist mucous membranes. NECK: Trachea midline, full range of motion, supple. no JVD, no LAD, no thyromegaly. LUNGS: Breath sounds equal, clear to auscultation bilaterally, no wheezes, no crackles, no accessory muscle use. HEART: Regular rate and rhythm, S1, S2 without murmur, rub or gallop. ABDOMEN: Soft, nontender, nondistended, normoactive bowel sounds, no guarding, no rebound, no hepatosplenomegaly, no masses. EXTREMITIES: 2+ pulses, warm, well-perfused, no edema. few petechia on b/l knees without tenderness, swelling or effusion. normal range of motion. NEUROLOGICAL: Cranial nerves II through XII grossly intact. Normal speech, gait not observed. PSYCH: Normal mood, normal affect. Laboratory Results - last 24 hr 06/07/16 06/07/16 06/07/16 06:10 16:07 18:30 WBC 0.3 L* RBC 3.10 L D Hgb 8.7 L D Hct 25.9 L D MCV 83.7 MCHC 33.7 RDW 15.5 Plt Count 17 L* D MPV 8.3 D Neutrophils % Y Lymphocytes % Y Random Glucose 128 H Lactic Acid 1.664 Phosphorus Magnesium 06/08/16 06/08/16 06/08/16 05:45 05:45 07:15 WBC 0.7 L D RBC 1.93 L D Hgb 5.6 L* D Hct 16.1 L D MCV 83.4 MCHC 34.6 RDW 15.6 Plt Count 17 L* MPV 7.9 Neutrophils % Y Lymphocytes % Y Random Glucose Lactic Acid 1.027 Phosphorus 2.2 L Magnesium 2.7 H Active Medications Generic Name Dose Route Start Last Admin Trade Name Freq PRN Reason Stop Dose Admin Acetaminophen 650 mg 06/07/16 02:16 Tylenol - PO Q6H PRN FEVER OR PAIN Cefepime HCl 2 gm 06/07/16 21:00 06/07/16 21:20 Maxipime 2gm Ivpb (Pre-Docked) IVPB 2 gm BID OPAL Administration Protocol Dopamine HCl/Dextrose 250 mls @ 11.056 mls/hr 06/07/16 08:45 06/07/16 18:49 Dopamine 400 Mg/D5w - IVPB 4.07 mcg/kg/min TITR OPAL Titration Protocol 5 MCG/KG/MIN Sodium Chloride 1,000 mls @ 100 mls/hr 06/07/16 09:45 06/07/16 10:10 Normal Saline - IV 100 mls/hr ASDIR OPAL Administration Meropenem 1 gm/ Dextrose 100 mls @ 200 mls/hr 06/07/16 18:00 06/08/16 01:21 IVPB 200 mls/hr Q8H-IV OPAL Administration Protocol Ondansetron HCl 4 mg 06/07/16 02:16 Zofran Injection IVPB Q6H PRN NAUSEA ASSESSMENT/PLAN: 75 y/o pleasant unfortunate lady with h/o Waldenstrom macroglobuniema undergoing chemo with Daratumunab (last dose 2 weeks ago) pancytopenic and recurrent transfusions , h/o typhlitis , PNAs, who presented with fever, found to be septic shock with bactermia(gram neg cecil) - left a msg with Dr. Torres [phone], no response - called bedboard at [facility] - no beds available #septic shock with gram negative bactermia, neutropenic fever - continue Cefepime, Meropenem #CT abdomen - with dilated cbd - ultrasound to further evaluate #Hypotension - improved - dopamine drip 5mcg/kg #Pancytopenia; anemia/thrombocytopenia - likely due to recent chemotherapy administration (Daratumunab 2 weeks ago) and disease process from Waldenstrom's macroglobuniema - s/p 2 units prbc's, 2 units platelets, ordered 2 units prbc's today - unlikely to be DIC, low fibrinogen degradation products with high fibrinogen #dvt - thrombocytopenia #Diet - sodium controlled diet Visit type - Emergency Visit Emergency Visit: No - New Patient This patient is new to me today: Yes Date on this admission: 06/08/16 - Critical Care Critical Care patient: Yes Total Critical Care Time (in minutes): 37 Critical Care Statement: The care of this patient involved high complexity decision making to prevent further life threatening deterioration of the patient 's condition and/or to evalute & treat vital organ system(s) failure or risk of failure.
[2016-06-08 09:23] LABS: CALCIUM 7.5 mg/dL (8.5-10.1); CREATININE 0.5 mg/dL (0.55-1.02)
[2016-06-08 09:39] LABS: METAMYELOCYTE 1 % (0-2); PLATELET ESTIMATE MARKEDLY DECREASED (NORMAL)
[2016-06-08] MEDS: DOPAMINE 400 MG/D5W - 250 ML IVPB SCH ×2 (10:16→15:39)
[2016-06-08] MEDS: SODIUM CHLORIDE 1,000 ML IV SCH (10:16)
[2016-06-08] MEDS: CEFEPIME 2 GM/100 ML BAG PRE-DOCKED IVPB SCH ×2 (10:16→21:24)
[2016-06-08 11:06] LABS: INR 1.79 (0.82-1.09)
--- NOTE | 2016-06-08 12:47 | PN ---
Teaching Attending Note Name of Resident: Hernandez Dumont ATTENDING PHYSICIAN STATEMENT I saw and evaluated the patient. I reviewed the resident's note and discussed the case with the resident. I agree with the resident's findings and plan as documented. SUBJECTIVE: no fever ro chills, no abd pain , she feels much better than yesterday . no events over night . no SOB , no CP or Palpitations , no diarrhea or dysuria OBJECTIVE: NAd, awake alert and oriented x3 . dry MM no LAP in neck CV: RRR, no MRG Lungs : CTAB Abd: soft, NT, ND, NL BS Ext : no edema or erythema over upper or lower ext . bruises and petechiae over the knees. ASSESSMENT AND PLAN: 75 y/o pleasant unfortunate lady with h/o Waldenstrome lymphoma, pancytopenia and recurrent transfusions , h/o typhlitis , PNAs, who presented with fever . She was found to be in septic shock and bacteremic 1- Spetic shock . due to G - Rods bacteremia ( lactose fermenting rods , probably E coli ) BP improved on dopamine and clinically she is better . - titrate dopamine off if possible - cont abx . now since it is lactose fermenting Rods , we might be able to cover with one Abx . Will d/w ID - CT of abd is pending read - cont IVF - cont to transfuse as needed and monitor other parameters 2- Pancytopenia ,with severe anemia and thrombocytopenia , due to BM infiltrate and chemo ( last received Daratumunab 2 weeks ago) . - Hb dropped again this am , no obvious bleed. Coags don't suggest DIC or hemolysis - will transfuse 2 more units and repeat Hb after that . - OK with plt count for now , ideally goal s usually > 30 K in setting of sepsis . - d/w blood bank today, no compatible blood was available . 3- RADHAMES : probably due to sepsis and volume depletion . Cr improved with IVF 4- Code status :DNR/DNI Dispo : accepted for transfer to [place] . Bed is pending
[2016-06-08] MEDS ORDERED: POTASSIUM CHLORIDE TABS 20 MEQ TABLET.ER (FP) PO ONE (12:57)
--- NOTE | 2016-06-08 13:54 | PN ---
Teaching Attending Note Name of Resident: Wade Alexander ATTENDING PHYSICIAN STATEMENT I saw and evaluated the patient. I reviewed the resident's note and discussed the case with the resident. I agree with the resident's findings and plan as documented. SUBJECTIVE: Pt seen and examined in the ICU. Blood counts down this AM, more transfusions ordered. Denies shortness of breath or chest pain. Low grade temp overnight. OBJECTIVE: Last Vital Signs Temp Pulse Resp BP Pulse Ox 99.9 F H 106 H 24 96/60 95 06/08/16 08:00 06/08/16 11:00 06/08/16 11:00 06/08/16 11:00 06/08/16 09:00 Intake & Output 06/05/16 06/06/16 06/07/16 06/08/16 23:59 23:59 23:59 23:59 Intake Total 1935.5 Balance 1935.5 Weight 130 lb 138 lb 8 oz 138 lb Gen: NAD at rest Heart: tachycardic, regular Lung: few basilar rales Abd: soft, nontender Ext: no edema CBC, BMP 06/08/16 05:45 06/08/16 05:45 Active Medications Acetaminophen (Tylenol -) 650 mg PO Q6H PRN PRN Reason: FEVER OR PAIN Cefepime HCl (Maxipime 2gm Ivpb (Pre-Docked)) 2 gm IVPB BID OPAL PRN Reason: Protocol Last Admin: 06/08/16 10:16 Dose: 2 gm Dopamine HCl/Dextrose (Dopamine 400 Mg/D5w -) 250 mls @ 11.056 mls/hr IVPB TITR OPAL; 5 MCG/KG/MIN PRN Reason: Protocol Last Admin: 06/08/16 10:16 Dose: Not Given Sodium Chloride (Normal Saline -) 1,000 mls @ 100 mls/hr IV ASDIR OPAL Last Admin: 06/08/16 10:16 Dose: 100 mls/hr Meropenem 1 gm/ Dextrose 100 mls @ 200 mls/hr IVPB Q8H-IV OPAL PRN Reason: Protocol Last Admin: 06/08/16 10:15 Dose: 200 mls/hr Ondansetron HCl (Zofran Injection) 4 mg IVPB Q6H PRN PRN Reason: NAUSEA ASSESSMENT AND PLAN: Neutropenic Sepsis Gram Negative Bacteremia Septic Shock Waldenstrom's Macroglobulinemia Severe Anemia Severe Thrombocytopenia Epistaxis - broad sprectrum antibiotics - f/u cultures - ID evaluation - IVF resuscitation - taper off dopamine gtt, pt's baseline BP 90/60 - transfuse PRBC, platelets - monitor CBC, coags - O2 to keep spO2 >90% - repeat CXR in AM - ?pneumonia as infectious source as pt has rales on exam - neutropenic precautions - transfer to [facility] when stable - DVT prophylaxis - ICU monitoring if stays here Problem List - Problems (1) Fever Code(s): R50.9 - FEVER, UNSPECIFIED (2) Neutropenic fever Code(s): D70.9 - NEUTROPENIA, UNSPECIFIED R50.81 - FEVER PRESENTING WITH CONDITIONS CLASSIFIED ELSEWHERE (3) Pancytopenia Code(s): D61.818 - OTHER PANCYTOPENIA (4) Waldenstrom's disease Code(s): C88.0 - WALDENSTROM MACROGLOBULINEMIA (5) Thrombocytopenia Code(s): D69.6 - THROMBOCYTOPENIA, UNSPECIFIED (6) Anemia Code(s): D64.9 - ANEMIA, UNSPECIFIED (7) Sepsis Code(s): A41.9 - SEPSIS, UNSPECIFIED ORGANISM (8) Shock Code(s): R57.9 - SHOCK, UNSPECIFIED (9) Septic shock Code(s): A41.9 - SEPSIS, UNSPECIFIED ORGANISM R65.21 - SEVERE SEPSIS WITH SEPTIC SHOCK (10) Gram-negative bacteremia Code(s): R78.81 - BACTEREMIA
--- NOTE | 2016-06-08 14:48 | PN ---
Physical Exam: SUBJECTIVE: Patient seen and examined at bedside in ICU. States she is feeling much better than yesterday, but still below her baseline. Temp improved to 99 degrees this AM. No acute events overnight. ROS (-) except as stated above. OBJECTIVE: Vital Signs Period Temp Pulse Resp BP Sys/Hilton Pulse Ox Last 24 Hr 99.2 F-100.4 F 95-107 19-25 85-102/51-64 95-100 GENERAL: The patient is awake, alert, and fully oriented. Generalised malaise but in no acute distress. HEENT: Atraumatic, EOMI, PERRLA, No lymphadenopathy noted, moist membranes LUNGS: CTA bilaterally HEART: RRR, S1S2 ABDOMEN: Soft, nontender, nondistended EXTREMITIES: 2+ pulses, warm, well-perfused, no edema. Some bruiding/petechiae noted on lower extremity. NEUROLOGICAL: Cranial nerves II through XII grossly intact. Normal speech, gait not observed. PSYCH: Normal mood, normal affect. Laboratory Results - last 24 hr 06/07/16 06/07/16 06/08/16 16:07 18:30 05:35 WBC 0.3 L* RBC 3.10 L D Hgb 8.7 L D Hct 25.9 L D MCV 83.7 MCHC 33.7 RDW 15.5 Plt Count 17 L* D MPV 8.3 D Neutrophils % Y Lymphocytes % Y Monocytes % Metamyelocytes Differential Comment Platelet Estimate INR PTT (Actin FS) Fibrinogen Fibrin Degrad Products Sodium Cancelled Potassium Cancelled Chloride Cancelled Carbon Dioxide Cancelled Anion Gap Cancelled BUN Cancelled Creatinine Cancelled Random Glucose Cancelled Lactic Acid 1.664 Calcium Cancelled Phosphorus Magnesium LD Total Direct Antiglob Test 06/08/16 06/08/16 06/08/16 05:45 05:45 07:15 WBC 0.7 L D RBC 1.93 L D Hgb 5.6 L* D Hct 16.1 L D MCV 83.4 MCHC 34.6 RDW 15.6 Plt Count 17 L* MPV 7.9 Neutrophils % 10.0 L Lymphocytes % 87.0 H Monocytes % 2.0 L Metamyelocytes 1 Differential Comment Manual diff done Platelet Estimate Markedly decreased INR PTT (Actin FS) Fibrinogen Fibrin Degrad Products Sodium 142 Potassium 3.2 L Chloride 107 Carbon Dioxide 23 Anion Gap 12 BUN 24 H D Creatinine 0.5 L D Random Glucose 117 H Lactic Acid 1.027 Calcium 7.5 L Phosphorus 2.2 L Magnesium 2.7 H LD Total 143 Direct Antiglob Test 06/08/16 06/08/16 06/08/16 09:23 09:23 10:20 WBC RBC Hgb Hct MCV MCHC RDW Plt Count MPV Neutrophils % Lymphocytes % Monocytes % Metamyelocytes Differential Comment Platelet Estimate INR 1.79 H PTT (Actin FS) 27.7 Fibrinogen 618.0 H Fibrin Degrad Products Less than 10 Sodium Potassium Chloride Carbon Dioxide Anion Gap BUN Creatinine Random Glucose Lactic Acid Calcium Phosphorus Magnesium LD Total Direct Antiglob Test Negative Active Medications Generic Name Dose Route Start Last Admin Trade Name Freq PRN Reason Stop Dose Admin Acetaminophen 650 mg 06/07/16 02:16 Tylenol - PO Q6H PRN FEVER OR PAIN Cefepime HCl 2 gm 06/07/16 21:00 06/08/16 10:16 Maxipime 2gm Ivpb (Pre-Docked) IVPB 2 gm BID OPAL Administration Protocol Dopamine HCl/Dextrose 250 mls @ 11.056 mls/hr 06/07/16 08:45 06/08/16 10:16 Dopamine 400 Mg/D5w - IVPB Not Given TITR OPAL Protocol 5 MCG/KG/MIN Sodium Chloride 1,000 mls @ 100 mls/hr 06/07/16 09:45 06/08/16 10:16 Normal Saline - IV 100 mls/hr ASDIR OPAL Administration Meropenem 1 gm/ Dextrose 100 mls @ 200 mls/hr 06/07/16 18:00 06/08/16 10:15 IVPB 200 mls/hr Q8H-IV OPAL Administration Protocol Ondansetron HCl 4 mg 06/07/16 02:16 Zofran Injection IVPB Q6H PRN NAUSEA ASSESSMENT/PLAN: 75yo female with PMH of Waldenstrom's macroglobulinemia, pancytopenia who presented with malaise & fevers to 105 x 2 days. Reports epistaxis (clots) as well. Awaiting transfer to [facility] after blood transfusion. #Neutropenic fever; gram (-) bacteremia, lactose fermenting rods -continue Cefepime, Meropenem -ID following -cultures pending -unable to place central line due to thrombocytopenia -discontinued dopamine drip, BP at patient's usual baseline -plan is to transfer patient back to [facility], pending bed availability & blood transfusion #Pancytopenia; anemia/thrombocytopenia -secondary to recent chemotherapy administration (Daratumunab 2 weeks ago) -Hg 5.,6 this AM -2 units PRBC ordered STAT, 1st unit currently being administered -following coags #Acute Kidney Injury -likely secondary to hypotension due to sepsis -Creatinine today 0.5 (1 yesterday) -continue IVF administartion, trend labs Prophylaxis/FEN -NS@100, PO Diet, Repleted potassium & phosphorus Visit type - Emergency Visit Emergency Visit: Yes ED Registration Date: 06/07/16 Care time: The patient presented to the Emergency Department on the above date and was hospitalized for further evaluation of their emergent condition. - New Patient This patient is new to me today: Yes Date on this admission: 06/08/16 - Critical Care Critical Care patient: Yes Total Critical Care Time (in minutes): 50 Critical Care Statement: The care of this patient involved high complexity decision making to prevent further life threatening deterioration of the patient 's condition and/or to evalute & treat vital organ system(s) failure or risk of failure.
[2016-06-08] MEDS ORDERED: NAPH,MB-DB/K PH,MBDB POWDER PACKET PO ONE ×2 (14:59→17:45)
--- NOTE | 2016-06-08 15:34 | PN ---
Progress Note (short form) - Note Progress Note: Patient seen and examined Feels well. Last Vital Signs Temp Pulse Resp BP Pulse Ox 99.9 F H 106 H 24 96/60 95 06/08/16 08:00 06/08/16 11:00 06/08/16 11:00 06/08/16 11:00 06/08/16 09:00 HEENT: EDD, EOM Intact Oropharynx: No thrush, No mucositis Cor: RSR, No murmurs, No gallops Lungs: Clear to P&A Abd: Soft, Normal bowel sounds, No organomegaly Ext:No significant edema Abnormal Lab Results 06/06/16 06/07/16 06/07/16 20:00 00:06 18:30 WBC 0.3 L* RBC 3.10 L D Hgb 8.7 L D Hct 25.9 L D Plt Count 17 L* D Neutrophils % Lymphocytes % Monocytes % INR Fibrinogen Potassium BUN Creatinine Random Glucose Calcium Phosphorus Magnesium Antibody Screen Positive H Crossmatch See Detail See Detail 06/08/16 06/08/16 06/08/16 05:45 05:45 09:23 WBC 0.7 L D RBC 1.93 L D Hgb 5.6 L* D Hct 16.1 L D Plt Count 17 L* Neutrophils % 10.0 L Lymphocytes % 87.0 H Monocytes % 2.0 L INR 1.79 H Fibrinogen 618.0 H Potassium 3.2 L BUN 24 H D Creatinine 0.5 L D Random Glucose 117 H Calcium 7.5 L Phosphorus 2.2 L Magnesium 2.7 H Antibody Screen Crossmatch Current Medications Acetaminophen (Tylenol -) 650 mg PO Q6H PRN PRN Reason: FEVER OR PAIN Cefepime HCl (Maxipime 2gm Ivpb (Pre-Docked)) 2 gm IVPB BID OPAL PRN Reason: Protocol Last Admin: 06/08/16 10:16 Dose: 2 gm Sodium Chloride (Normal Saline -) 1,000 mls @ 100 mls/hr IV ASDIR OPAL Last Admin: 06/08/16 10:16 Dose: 100 mls/hr Meropenem 1 gm/ Dextrose 100 mls @ 200 mls/hr IVPB Q8H-IV OPAL PRN Reason: Protocol Last Admin: 06/08/16 10:15 Dose: 200 mls/hr Dopamine HCl/Dextrose (Dopamine 400 Mg/D5w -) 250 mls @ 9.389 mls/hr IVPB TITR OPAL; 4 MCG/KG/MIN PRN Reason: Protocol Ondansetron HCl (Zofran Injection) 4 mg IVPB Q6H PRN PRN Reason: NAUSEA A/P 75 y/o patient s/p 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 Poor performance status Daratumumab interfering with type and cross match. blood bank was bale to procure type and screen from [facility] [place] . HAs anti C PAtient has been transfusion dependent No obvious bleeding Getting PRBCs Cneg. On antibiotics will give trial of vitamin K discussed with family at bed side
--- NOTE | 2016-06-08 16:16 | EKG ---
Test Reason : Blood Pressure : / mmHG Vent. Rate : 115 BPM Atrial Rate : 115 BPM P-R Int : 138 ms QRS Dur : 078 ms QT Int : 322 ms P-R-T Axes : 059 054 062 degrees QTc Int : 445 ms SINUS TACHYCARDIA OTHERWISE NORMAL ECG WHEN COMPARED WITH ECG OF 05-MAR-2007 18:14, NO SIGNIFICANT CHANGE WAS FOUND Confirmed by STEFANO MADRID MD ([id number]) on 06/08/2016 4:15:43 PM Referred By: Confirmed By:STEFANO MADRID MD
--- NOTE | 2016-06-08 17:08 | PN ---
Progress Note, Physician History of Present Illness: patient feeling much better still weak has remained afebrile - Current Medication List Current Medications: Active Medications Acetaminophen (Tylenol -) 650 mg PO Q6H PRN PRN Reason: FEVER OR PAIN Cefepime HCl (Maxipime 2gm Ivpb (Pre-Docked)) 2 gm IVPB BID OPAL PRN Reason: Protocol Last Admin: 06/08/16 10:16 Dose: 2 gm Sodium Chloride (Normal Saline -) 1,000 mls @ 100 mls/hr IV ASDIR OPAL Last Admin: 06/08/16 10:16 Dose: 100 mls/hr Meropenem 1 gm/ Dextrose 100 mls @ 200 mls/hr IVPB Q8H-IV OPAL PRN Reason: Protocol Last Admin: 06/08/16 10:15 Dose: 200 mls/hr Dopamine HCl/Dextrose (Dopamine 400 Mg/D5w -) 250 mls @ 9.389 mls/hr IVPB TITR OPAL; 4 MCG/KG/MIN PRN Reason: Protocol Last Admin: 06/08/16 15:39 Dose: Not Given Ondansetron HCl (Zofran Injection) 4 mg IVPB Q6H PRN PRN Reason: NAUSEA Phytonadione (Aqua Mephyton Injection -) 5 mg SQ DAILY OPAL Stop: 06/10/16 10:01 - Objective Vital Signs: Vital Signs Temperature 99.8 F H 06/08/16 15:00 Pulse Rate 105 H 06/08/16 15:00 Respiratory Rate 28 H 06/08/16 15:00 Blood Pressure 99/58 06/08/16 15:00 O2 Sat by Pulse Oximetry (%) 95 06/08/16 09:00 Constitutional: Yes: No Distress, Calm Neck: Yes: Supple Cardiovascular: Yes: Regular Rate and Rhythm Respiratory: Yes: Regular, CTA Bilaterally Gastrointestinal: Yes: Normal Bowel Sounds, Soft Musculoskeletal: Yes: Other Extremities: Yes: Other Neurological: Yes: Alert, Oriented Psychiatric: Yes: Alert, Oriented Labs: CBC, BMP 06/08/16 05:45 06/08/16 05:45 INR, PTT INR 1.79 (0.82-1.09) H 06/08/16 09:23 Fibrinogen 618.0 mg/dL (238-498) H 06/08/16 09:23 - ....Imaging Cat Scan: Report Reviewed, Image Reviewed Assessment/Plan Neutropenic fever Pancytopenic Waldernstrom's lymphoma fever bacteremia gram negative dehydration plan continue current mgmt still awaitng identification of the bacteria wbc improving now 0.7 very close watch breathing still a issue close monitoring in preventing infection cc time 40 min
[2016-06-08] MEDS: PHYTONADIONE 10 MG/1 ML AMP SQ SCH (17:46)
[2016-06-08 22:12] LABS: MCH 28.2 pg (25.7-33.7); MCHC 34.6 g/dl (32.0-36.0); MEAN CELL VOLUME 81.5 fl (80-96); MEAN PLT VOLUME 8.1 fl (7.5-11.1); RDW 16.5 % (11.6-15.6)
[2016-06-08 22:14] LABS: PLATELET COUNT 14 K/MM3 (134-434)
[2016-06-08 22:22] LABS: INR 1.53 (0.82-1.09)
[2016-06-08 22:25] LABS: ACTIVATED PTT 22.7 SECONDS (26.9-34.4)
[2016-06-08] MEDS: ACETAMINOPHEN 325 MG TABLET (FP) PO PRN (22:51)
[2016-06-08] MEDS ORDERED: ZOLPIDEM TARTRATE 5 MG TABLET PO ONE (23:44)
[2016-06-09] MEDS: DOPAMINE 400 MG/D5W - 250 ML IVPB SCH (01:00)
[2016-06-09] MEDS: MEROPENEM 1 GM in DEXTROSE 5%-WATER - 100 ML IVPB SCH ×3 (02:43→18:25)
[2016-06-09] MEDS ORDERED: morphine CARPU-JECT 2 MG/1 ML DISP.SYRIN ONE (04:15)
[2016-06-09] MEDS: morphine CARPU-JECT 2 MG/1 ML DISP.SYRIN IVPUSH PRN ×3 (04:15→21:06)
[2016-06-09 06:15] LABS: MCH 28.5 pg (25.7-33.7); MCHC 34.8 g/dl (32.0-36.0); MEAN CELL VOLUME 81.9 fl (80-96); MEAN PLT VOLUME 8.5 fl (7.5-11.1); RDW 16.5 % (11.6-15.6)
[2016-06-09 06:25] LABS: INR 1.45 (0.82-1.09); PROTHROMBIN TIME (PATIENT) 16.1 SEC (9.98-11.88)
[2016-06-09 06:26] LABS: PLATELET COUNT 21 K/MM3 (134-434); WHITE BLOOD COUNT 0.9 K/mm3 (4.0-10.0)
[2016-06-09 06:27] LABS: ACTIVATED PTT 18.4 SECONDS (26.9-34.4)
[2016-06-09 06:44] LABS: ALBUMIN 2.2 g/dl (3.4-5.0); ANION GAP 8 (8-16); BILIRUBIN,TOTAL 1.7 mg/dL (0.2-1.0); CO2 27 mmol/L (21-32); CREATININE 0.6 mg/dL (0.55-1.02); MAGNESIUM 2.5 mg/dL (1.8-2.4)
[2016-06-09 06:45] LABS: ALK PHOS 110 U/L (45-117)
[2016-06-09 06:58] LABS: CALCIUM 8.2 mg/dL (8.5-10.1); PHOSPHOROUS 1.8 mg/dL (2.5-4.9); SGOT/AST 36 U/L (15-37); SGPT/ALT 69 U/L (12-78)
[2016-06-09 07:08] LABS: GLUCOSE,RANDOM 107 mg/dL (74-106)
[2016-06-09] MEDS: SODIUM CHLORIDE 1,000 ML IV SCH (10:00)
[2016-06-09] MEDS ORDERED: PT OWN MED DRAWER 7, Y5N ONE ×2 (10:28→18:14)
[2016-06-09] MEDS: PHYTONADIONE 10 MG/1 ML AMP SQ SCH (10:34)
[2016-06-09] MEDS: DRONABINOL 2.5 MG CAPSULE PO SCH ×2 (10:34→21:05)
[2016-06-09] MEDS: CEFEPIME 2 GM/100 ML BAG PRE-DOCKED IVPB SCH (10:37)
--- NOTE | 2016-06-09 13:17 | PN ---
Physical Exam: SUBJECTIVE: Patient seen and examined at bedside this AM in ICU. Febrile to 101.4 last night but afebrile this AM. States she feels much better than on admission, but has pain & tenderness to palpation on right buttock. Firm nonfluctant nonerythematous area noted on right buttock. OBJECTIVE: Vital Signs Period Temp Pulse Resp BP Sys/Hilton Pulse Ox Last 24 Hr 95 F-101.4 F 70-108 18-30 85-107/52-72 94-96 GENERAL: The patient is awake, alert, and fully oriented. Generalised malaise but in no acute distress. HEENT: Atraumatic, EOMI, PERRLA, No lymphadenopathy noted, moist membranes LUNGS: CTA bilaterally HEART: RRR, S1S2 ABDOMEN: Soft, nontender, nondistended EXTREMITIES: 2+ pulses, warm, well-perfused, no edema. Some bruising/petechiae noted on lower extremity. NEUROLOGICAL: Cranial nerves II through XII grossly intact. Normal speech, gait not observed. PSYCH: Normal mood, normal affect. Laboratory Results - last 24 hr 06/08/16 06/08/16 06/08/16 09:23 20:45 20:45 WBC 1.0 L D RBC 2.58 L D Hgb 7.3 L D Hct 21.0 L D MCV 81.5 MCHC 34.6 RDW 16.5 H Plt Count 14 L* MPV 8.1 Neutrophils % Lymphocytes % Monocytes % Eosinophils % Basophils % Haptoglobin 235 H INR 1.53 H PTT (Actin FS) 22.7 L Fibrinogen 651.0 H Sodium Potassium Chloride Carbon Dioxide Anion Gap BUN Creatinine Creat Clearance w eGFR Random Glucose Calcium Phosphorus Magnesium Total Bilirubin AST ALT Alkaline Phosphatase Total Protein Albumin 06/09/16 06/09/16 06/09/16 05:00 05:00 05:00 WBC 0.9 L RBC 3.00 L Hgb 8.5 L D Hct 24.5 L D MCV 81.9 MCHC 34.8 RDW 16.5 H Plt Count 21 L* D MPV 8.5 Neutrophils % Glove Cutter Lymphocytes % Glove Cutter Monocytes % Glove Cutter Eosinophils % Glove Cutter Basophils % Glove Cutter Haptoglobin INR 1.45 H PTT (Actin FS) 18.4 L Fibrinogen Sodium 140 Potassium 3.7 Chloride 105 Carbon Dioxide 27 Anion Gap 8 BUN 22 H Creatinine 0.6 Creat Clearance w eGFR > 60 Random Glucose 107 H Calcium 8.2 L Phosphorus 1.8 L Magnesium 2.5 H Total Bilirubin 1.7 H D AST 36 D ALT 69 D Alkaline Phosphatase 110 D Total Protein 7.0 Albumin 2.2 L Active Medications Generic Name Dose Route Start Last Admin Trade Name Freq PRN Reason Stop Dose Admin Acetaminophen 650 mg 06/07/16 02:16 06/08/16 22:51 Tylenol - PO 650 mg Q6H PRN Administration FEVER OR PAIN Cefepime HCl 2 gm 06/07/16 21:00 06/09/16 10:37 Maxipime 2gm Ivpb (Pre-Docked) IVPB 2 gm BID OPAL Administration Protocol Dronabinol 2.5 mg 06/09/16 10:00 06/09/16 10:34 Marinol - PO 2.5 mg BID OPAL Administration Sodium Chloride 1,000 mls @ 100 mls/hr 06/07/16 09:45 06/09/16 10:00 Normal Saline - IV 100 mls/hr ASDIR OPAL Administration Meropenem 1 gm/ Dextrose 100 mls @ 200 mls/hr 06/07/16 18:00 06/09/16 10:37 IVPB 200 mls/hr Q8H-IV OPAL Administration Protocol Dopamine HCl/Dextrose 250 mls @ 9.389 mls/hr 06/08/16 15:15 06/09/16 05:00 Dopamine 400 Mg/D5w - IVPB 2 mcg/kg/min TITR OPAL Titration Protocol 4 MCG/KG/MIN Pantoprazole Sodium 100 mls @ 200 mls/hr 06/09/16 12:30 Protonix 40mg Ivpb (Pre-Docked) IVPB DAILY OPAL Morphine Sulfate 1 mg 06/09/16 04:22 06/09/16 11:11 Morphine Injection - IVPUSH 1 mg Q4H PRN Administration PAIN Ondansetron HCl 4 mg 06/07/16 02:16 06/08/16 20:50 Zofran Injection IVPB 4 mg Q6H PRN Administration NAUSEA Phytonadione 5 mg 06/08/16 17:30 06/09/16 10:34 Aqua Mephyton Injection - SQ 06/10/16 10:01 5 mg DAILY OPAL Administration Potassium Phos/Sodium Phos 1 packet 06/09/16 14:00 Phos-Nak Packet - PO 06/10/16 06:01 TID [facility] ASSESSMENT/PLAN: 75yo female with PMH of Waldenstrom's macroglobulinemia, pancytopenia who presented with malaise & fevers to 105 x 2 days. Reports epistaxis (clots) as well. Awaiting transfer to [facility] pending bed placement. #Neutropenic fever; gram (-) bacteremia, lactose fermenting rods -continue Cefepime, Meropenem -ID following cultures -will attempt to wean off dopamine again after restarted last night -unable to place central line due to thrombocytopenia -plan is to transfer patient back to [facility], pending bed availability #Gallstones, dilated CBD -explained importance of HIDA scan to patient to workup possible cholecystitis -patient states she understands, but refuses to consent to exam -urged to reconsider, states she is not interested in further testing -will reattempt to obtain consent later today #Pancytopenia; anemia/thrombocytopenia -secondary to recent chemotherapy administration (Daratumunab 2 weeks ago) -Hg 8.6 today after 2units PRBC given yesterday -thus far, has been given 4units PRBC, 1unit FFP & 3units platelets -following coags #Acute Kidney Injury -likely secondary to hypotension due to sepsis -Creatinine now stable 0.6 -continue IVF administration, trend labs -avoid nephrotoxic meds Prophylaxis/FEN -SCD's, PPI -NS@100, Repleted Phosphorus, Neutropenic Diet Visit type - Emergency Visit Emergency Visit: Yes ED Registration Date: 06/07/16 Care time: The patient presented to the Emergency Department on the above date and was hospitalized for further evaluation of their emergent condition. - New Patient This patient is new to me today: No - Critical Care Critical Care patient: Yes Total Critical Care Time (in minutes): 45 Critical Care Statement: The care of this patient involved high complexity decision making to prevent further life threatening deterioration of the patient 's condition and/or to evalute & treat vital organ system(s) failure or risk of failure.
[2016-06-09] MEDS: PANTOPRAZOLE SODIUM 100 ML IVPB SCH (13:37)
[2016-06-09] MEDS: NAPH,MB-DB/K PH,MBDB POWDER PACKET PO SCH ×2 (13:38→21:05)
--- NOTE | 2016-06-09 13:59 | PN ---
Teaching Attending Note Name of Resident: Hernandez Dumont ATTENDING PHYSICIAN STATEMENT I saw and evaluated the patient. I reviewed the resident's note and discussed the case with the resident. I agree with the resident's findings and plan as documented. SUBJECTIVE: had fever last night , has pain in her gluteal area at place of ulcer. Denies any abd pain , or diarrhea , no dysuria . no N/V or cough OBJECTIVE: NAd, awake alert and oriented x3 . dry MM no LAP in neck CV: RRR, no MRG Lungs: bibasilar crackles Abd: soft, NT, ND, NL BS Ext : no edema or erythema over upper or lower ext . bruises and petechiae over the knees. skin : saccral area with blistering and stage one around it , no discharge or bruising ASSESSMENT AND PLAN: 75 y/o pleasant unfortunate lady with h/o Waldenstrome lymphoma, pancytopenia and recurrent transfusions , h/o typhlitis , PNAs, who presented with fever . She was found to be in septic shock and bacteremic 1- Spetic shock . due to G - Rods bacteremia ( lactose fermenting rods ) . repeat blood cx neg to date Required dopamine last night . Now BP is doing better SBP in 90s ( nl for her ) - Titrate dopamine off, and continue IVF - cont abx ( meropenem and cefepime ) - CT of abd with no abscess , but ditended gall bladder and dilated CBD . - obtain US of RUQ . has no RUQ pain , so cholecystitis is unlikely the source of her spesis - cont IVF - cont to transfuse as needed and monitor other parameters - cont to have fever despite Abx , r/o DVT 2- Pancytopenia ,with severe anemia and thrombocytopenia , due to BM infiltrate and chemo ( last received Daratumunab 2 weeks ago) . has Abs C . Blood bank was able to find Abs C free blood - Hb is stable. no evidence of hemolysis or DIC per yesterday's labs - transfuse for HB< 7 - PLT count 21K today ( goal for her 15-20 ) - repeat CBC at 6 pm . 3- RADHAMES : probably due to sepsis and volume depletion . Cr improved with IVF CT abd showed R hydronephrosis and ureter withno stone . will obtain post void bladder scan as bladder was distended on CT scan . Further w/u is needed if no retention 4- Code status :DNR/DNI Dispo : accepted for transfer to [facility] . Bed is pending
--- NOTE | 2016-06-09 13:59 | PN ---
Physical Exam: SUBJECTIVE: Patient seen and examined Feels tired and short of breath. c/o pain on her gluteus from wound. denies chest pain, N/V, chills. Chart reviewed: overnight events noted; became hypotensive and required to be placed back on dopamine drip. OBJECTIVE: Vital Signs Period Temp Pulse Resp BP Sys/Hilton Pulse Ox Last 24 Hr 95 F-101.4 F 70-108 18-30 85-107/52-72 94-96 GENERAL: The patient is awake, alert, and fully oriented, in no acute distress. EYES: PERRL, extraocular movements intact ENT: oropharynx clear without exudates, few small petechia on palate above uvula , moist mucous membranes. NECK: Trachea midline, full range of motion, supple. no JVD, no LAD, no thyromegaly. LUNGS: Breath sounds equal, clear to auscultation bilaterally, fine crackles in left lung. HEART: Regular rate and rhythm, S1, S2 without murmur, rub or gallop. ABDOMEN: Soft, nontender, nondistended, normoactive bowel sounds, no guarding EXTREMITIES: 2+ pulses, warm, well-perfused, no edema. few petechia on b/l knees without tenderness, swelling or effusion. normal range of motion. PSYCH: Normal mood, normal affect. Laboratory Results - last 24 hr 06/08/16 06/08/16 06/08/16 09:23 20:45 20:45 WBC 1.0 L D RBC 2.58 L D Hgb 7.3 L D Hct 21.0 L D MCV 81.5 MCHC 34.6 RDW 16.5 H Plt Count 14 L* MPV 8.1 Neutrophils % Lymphocytes % Monocytes % Eosinophils % Basophils % Haptoglobin 235 H INR 1.53 H PTT (Actin FS) 22.7 L Fibrinogen 651.0 H Sodium Potassium Chloride Carbon Dioxide Anion Gap BUN Creatinine Creat Clearance w eGFR Random Glucose Calcium Phosphorus Magnesium Total Bilirubin AST ALT Alkaline Phosphatase Total Protein Albumin 06/09/16 06/09/16 06/09/16 05:00 05:00 05:00 WBC 0.9 L RBC 3.00 L Hgb 8.5 L D Hct 24.5 L D MCV 81.9 MCHC 34.8 RDW 16.5 H Plt Count 21 L* D MPV 8.5 Neutrophils % Preschool Assistant Principal Lymphocytes % Preschool Assistant Principal Monocytes % Preschool Assistant Principal Eosinophils % Preschool Assistant Principal Basophils % Preschool Assistant Principal Haptoglobin INR 1.45 H PTT (Actin FS) 18.4 L Fibrinogen Sodium 140 Potassium 3.7 Chloride 105 Carbon Dioxide 27 Anion Gap 8 BUN 22 H Creatinine 0.6 Creat Clearance w eGFR > 60 Random Glucose 107 H Calcium 8.2 L Phosphorus 1.8 L Magnesium 2.5 H Total Bilirubin 1.7 H D AST 36 D ALT 69 D Alkaline Phosphatase 110 D Total Protein 7.0 Albumin 2.2 L Active Medications Generic Name Dose Route Start Last Admin Trade Name Freq PRN Reason Stop Dose Admin Acetaminophen 650 mg 06/07/16 02:16 06/08/16 22:51 Tylenol - PO 650 mg Q6H PRN Administration FEVER OR PAIN Cefepime HCl 2 gm 06/07/16 21:00 06/09/16 10:37 Maxipime 2gm Ivpb (Pre-Docked) IVPB 2 gm BID OPAL Administration Protocol Dronabinol 2.5 mg 06/09/16 10:00 06/09/16 10:34 Marinol - PO 2.5 mg BID OPAL Administration Sodium Chloride 1,000 mls @ 100 mls/hr 06/07/16 09:45 06/09/16 10:00 Normal Saline - IV 100 mls/hr ASDIR OPAL Administration Meropenem 1 gm/ Dextrose 100 mls @ 200 mls/hr 06/07/16 18:00 06/09/16 10:37 IVPB 200 mls/hr Q8H-IV OPAL Administration Protocol Dopamine HCl/Dextrose 250 mls @ 9.389 mls/hr 06/08/16 15:15 06/09/16 05:00 Dopamine 400 Mg/D5w - IVPB 2 mcg/kg/min TITR OPAL Titration Protocol 4 MCG/KG/MIN Pantoprazole Sodium 100 mls @ 200 mls/hr 06/09/16 12:30 06/09/16 13:37 Protonix 40mg Ivpb (Pre-Docked) IVPB 200 mls/hr DAILY OPAL Administration Morphine Sulfate 1 mg 06/09/16 04:22 06/09/16 11:11 Morphine Injection - IVPUSH 1 mg Q4H PRN Administration PAIN Ondansetron HCl 4 mg 06/07/16 02:16 06/08/16 20:50 Zofran Injection IVPB 4 mg Q6H PRN Administration NAUSEA Phytonadione 5 mg 06/08/16 17:30 06/09/16 10:34 Aqua Mephyton Injection - SQ 06/10/16 10:01 5 mg DAILY OPAL Administration Potassium Phos/Sodium Phos 1 packet 06/09/16 14:00 06/09/16 13:38 Phos-Nak Packet - PO 06/10/16 06:01 1 packet TID OPAL Administration Ultrasound: The liver measures 18 cm in length and appears somewhat echogenic consistent with fatty infiltration. There is a large gallstone seen in the neck of the gallbladder concerning for impacted stone. There is thickening of the gallbladder wall which measures 5.7 mm. Findings raise possibility of acute cholecystitis. There is a linear echogenic focus in the gallbladder wall which may reflect a comet tail artifact such as cholesterolosis/adenomyomatosis. The right kidney measures 10.9 cm in length. Echogenic focus in the upper to mid pole measuring up to 9 mm is seen which likely corresponds to hyperdensity seen on CT scan and recommend follow-up. Visualized abdominal aorta demonstrates no evidence of abdominal aortic aneurysm. Visualized IVC is unremarkable. No pancreatic mass is seen. CHset xray: No evidence of pneumothorax. Airspace opacities are noted in the left parahilar region not present on prior x-ray. ASSESSMENT/PLAN: 75 y/o pleasant unfortunate lady with h/o Waldenstrom macroglobuniema undergoing chemo with Daratumunab (last dose 2 weeks ago) pancytopenic and recurrent transfusions , h/o typhlitis , PNAs, who presented with fever, found to be septic shock with pansensitive e.coli bactermia. - called bedboard at [facility] - no beds available, she is on the list, they are trying to make a bed for her. - discussed case with Dr. Torres, , gave him an update regarding patient's vitals, labs, imaging findings, agrees with ERCP as next step but to proceed with antibiotics only since patient has declined further intervention. his office will also inquire about bed availibility and keep me updated. - after thorough conversation with family on the risks and benefits of surgery, family states understanding that cholecystitis may further become necrotic and worsen her condition, after answering all of their questions, they and patient( with full capacity) declined further intervention. If patient is not transferred to [facility] by wednesday will discuss palliative care options with family. Will not consult GI as there is nothing the family will consent to as for procedures. #septic shock with e.coli bacteremia and fevers on antibiotics. - ultrasound shows concern for cholecystitis, patient declined interventions - The cholecystitis could be possible source of fevers - continue Cefepime, Meropenem - day 3 #Hypotension - dopamine drip 5mcg/kg - titrate down - keep NS fluids until dopamine tritrated off and BP is stable, then will d/c fluids #Pancytopenia; anemia/thrombocytopenia - likely due to recent chemotherapy administration (Daratumunab 2 weeks ago) and disease process from Waldenstrom's macroglobuniema - s/p 4 units prbc's, 2 units platelets, H/H currently 8.5/24.5, will repeat CBC at 6pm to trend - unlikely to be DIC, low fibrinogen degradation products with high fibrinogen levels #dvt - thrombocytopenia #Diet - sodium controlled diet with ensure TID Visit type - Emergency Visit Emergency Visit: No - New Patient This patient is new to me today: No - Critical Care Critical Care patient: Yes Total Critical Care Time (in minutes): 55 Critical Care Statement: The care of this patient involved high complexity decision making to prevent further life threatening deterioration of the patient 's condition and/or to evalute & treat vital organ system(s) failure or risk of failure.
--- NOTE | 2016-06-09 14:11 | PN ---
Teaching Attending Note Name of Resident: Wade Alexander ATTENDING PHYSICIAN STATEMENT I saw and evaluated the patient. I reviewed the resident's note and discussed the case with the resident. I agree with the resident's findings and plan as documented. SUBJECTIVE: Pt seen and examined in the ICU. Some shortness of breath with minimal exertion. Febrile overnight. Abdominal ultrasound suggesting acute cholecystitis but pt without pain but reports mild nausea, total bili slightly elevated. Tolerating liquids. Placed back on dopamine gtt overnight. OBJECTIVE: Last Vital Signs Temp Pulse Resp BP Pulse Ox 98.5 F 105 H 22 97/55 94 L 06/09/16 10:00 06/09/16 10:00 06/09/16 10:00 06/09/16 10:00 06/09/16 06:00 Intake & Output 06/06/16 06/07/16 06/08/16 06/09/16 23:59 23:59 23:59 23:59 Intake Total 4367.5 1386.4 Output Total 500 Balance 3867.5 1386.4 Weight 130 lb 138 lb 8 oz 138 lb 139 lb 4.8 oz Gen: mildly tachypneic at rest Heart: tachycardic, regular Lung: decreased breath sounds at the bases Abd: soft, nontender Ext: no edema CBC, BMP 06/09/16 05:00 06/09/16 05:00 Active Medications Acetaminophen (Tylenol -) 650 mg PO Q6H PRN PRN Reason: FEVER OR PAIN Last Admin: 06/08/16 22:51 Dose: 650 mg Cefepime HCl (Maxipime 2gm Ivpb (Pre-Docked)) 2 gm IVPB BID OPAL PRN Reason: Protocol Last Admin: 06/09/16 10:37 Dose: 2 gm Dronabinol (Marinol -) 2.5 mg PO BID OPAL Last Admin: 06/09/16 10:34 Dose: 2.5 mg Sodium Chloride (Normal Saline -) 1,000 mls @ 100 mls/hr IV ASDIR OPAL Last Admin: 06/09/16 10:00 Dose: 100 mls/hr Meropenem 1 gm/ Dextrose 100 mls @ 200 mls/hr IVPB Q8H-IV OPAL PRN Reason: Protocol Last Admin: 06/09/16 10:37 Dose: 200 mls/hr Dopamine HCl/Dextrose (Dopamine 400 Mg/D5w -) 250 mls @ 9.389 mls/hr IVPB TITR OPAL; 4 MCG/KG/MIN PRN Reason: Protocol Last Titration: 06/09/16 05:00 Dose: 2 mcg/kg/min Pantoprazole Sodium (Protonix 40mg Ivpb (Pre-Docked)) 100 mls @ 200 mls/hr IVPB DAILY OPAL Last Admin: 06/09/16 13:37 Dose: 200 mls/hr Morphine Sulfate (Morphine Injection -) 1 mg IVPUSH Q4H PRN PRN Reason: PAIN Last Admin: 06/09/16 11:11 Dose: 1 mg Ondansetron HCl (Zofran Injection) 4 mg IVPB Q6H PRN PRN Reason: NAUSEA Last Admin: 06/08/16 20:50 Dose: 4 mg Phytonadione (Aqua Mephyton Injection -) 5 mg SQ DAILY OPAL Stop: 06/10/16 10:01 Last Admin: 06/09/16 10:34 Dose: 5 mg Potassium Phos/Sodium Phos (Phos-Nak Packet -) 1 packet PO TID [facility] Stop: 06/10/16 06:01 Last Admin: 06/09/16 13:38 Dose: 1 packet ASSESSMENT AND PLAN: Neutropenic Sepsis Gram Negative Bacteremia Septic Shock Waldenstrom's Macroglobulinemia Severe Anemia Severe Thrombocytopenia Epistaxis r/o Acute Cholecystitis - continue antibiotics - f/u cultures - taper off dopamine gtt, pt's baseline BP 90/60 - transfuse PRBC, platelets - monitor CBC, coags - offered HIDA scan to r/o biliary obstruction but pt adamantly refusing - O2 to keep spO2 >90% - neutropenic precautions - transfer to [facility] when bed available - DVT prophylaxis - ICU monitoring if stays here Problem List - Problems (1) Fever Code(s): R50.9 - FEVER, UNSPECIFIED (2) Neutropenic fever Code(s): D70.9 - NEUTROPENIA, UNSPECIFIED R50.81 - FEVER PRESENTING WITH CONDITIONS CLASSIFIED ELSEWHERE (3) Pancytopenia Code(s): D61.818 - OTHER PANCYTOPENIA (4) Waldenstrom's disease Code(s): C88.0 - WALDENSTROM MACROGLOBULINEMIA (5) Thrombocytopenia Code(s): D69.6 - THROMBOCYTOPENIA, UNSPECIFIED (6) Anemia Code(s): D64.9 - ANEMIA, UNSPECIFIED (7) Sepsis Code(s): A41.9 - SEPSIS, UNSPECIFIED ORGANISM (8) Shock Code(s): R57.9 - SHOCK, UNSPECIFIED (9) Septic shock Code(s): A41.9 - SEPSIS, UNSPECIFIED ORGANISM R65.21 - SEVERE SEPSIS WITH SEPTIC SHOCK (10) Gram-negative bacteremia Code(s): R78.81 - BACTEREMIA
[2016-06-09] MEDS: ACETAMINOPHEN 325 MG TABLET (FP) PO PRN (14:33)
--- NOTE | 2016-06-09 14:53 | CONSULT ---
<TaranivoneGonsaol P - Last Filed: 06/09/16 14:55> - Consultation REQUESTING PROVIDER: General Surgery - Dr. Alberto Barrios CONSULT REQUEST: We have been asked to surgically evaluate this patient for distended gb & dilated cbd. PCP: Blaine Trinh HPI: Called to eval 75yo female with PMHx noted below. Admitted to [facility] with working diagnosis of Sepsis with associated neutropenic fever/pancytopenia. Daughter patient regularly receives 1 unit transfusions 3 times a week. As per daughter, patient has planned to begin a 3 week cycle of heavy chemotherapy beginning in 2 days so that she may qualify for a bone marrow transplant. A CT Scan was performed in the ED which identified distended gb w/ 2.2cm stone, dilated cbd, no evidence of acute process, right hydronephrosis & proximal ureter without obstruction. Denies CP, palpitations, SOB, n/v/d, blood in her stool or change in urine color, dysuria, frequency, urgency or flank pain. Patient adamantly refusing any surgical procedure. PMHx: Waldernstrom's lymphoma PSHx: Denies Home Meds 3 Calcium Carbonate/Vitamin D3 1 each PO BID 06/06/16 [Calcium 600 + Vit D 200 Tablet] Gabapentin [Neurontin -] 100 mg PO TID 06/06/16 Gluc Schmitz/Chondro Schmitz A/Vit C/Mn 1 each PO DAILY 06/06/16 [Glucosamine 1,500 Complex Cp] Montelukast Na [Singulair -] 10 mg PO DAILY 06/06/16 Multivitamin with Minerals [Icaps 1 each PO DAILY 06/06/16 Plus] Omeprazole 20 mg PO DAILY 06/06/16 Valacyclovir HCl [Valtrex -] 500 mg PO BID 06/06/16 Alendronate Na [Fosamax] 70 mg PO Q7D 06/07/16 Biotin 10,000 mcg PO DAILY 06/07/16 Lactobacillus Acidophilus 1 each PO DAILY 06/07/16 [Acidophilus] Magnesium Oxide [Magnesium] 500 mg PO DAILY 06/07/16 Selenium 200 mcg PO DAILY 06/07/16 Vitamin B Complex/Minerals [Sm 1 each PO DAILY 06/07/16 Stress Formula+Zinc Tablet] Zinc 50 mg PO DAILY 06/07/16 Allergies: NKDA ROS: CONSTITUTIONAL: Absent: SEE ABOVE. weight change CARDIOVASCULAR: Absent: SEE ABOVE. irregular heart rate RESPIRATORY: Absent: cough, shortness of breath, dyspnea with exertion, wheezing , stridor, hemoptysis GASTROINTESTINAL:Absent: SEE ABOVE. abdominal distension, constipation, melena, hematochezia GENITOURINARY: Absent: SEE ABOVE. hesitancy MUSCULOSKELETAL: Absent: myalgia, arthralgia, joint swelling, back pain, neck pain SKIN: Absent: rash, itching, pallor HEMATOLOGIC/IMMUNOLOGIC: SEE ABOVE. NEUROLOGIC: Absent: focal weakness, dizziness, unsteady gait, seizure, mental status changes, bladder or bowel incontinence PSYCHIATRIC: Absent: anxiety, depression, suicidal or homicidal ideation, hallucinations. PE: GENERAL: Awake, alert, and fully oriented, in no acute distress. HEAD: NC. AT. EYES: PERRL, sclera anicteric, conjunctiva clear. NECK: Normal ROM, supple without lymphadenopathy, JVD, or masses. LUNGS: HEART: RRR ABDOMEN: Soft distended. Tympanic throughout. Non-tender. No guarding/rebound. Negative Tenorio's UE: 2+ pulses, warm, well-perfused. No cyanosis. Cap refill <2 seconds. No peripheral edema. LE: 2+ pulses, warm, well-perfused. No calf tenderness. No peripheral edema. PSYCH: Cooperative. Good eye contact. Appropriate mood and affect. SKIN: Warm, dry, normal turgor, no rashes or lesions noted. Last Vital Signs Temp Pulse Resp BP Pulse Ox 101.1 F H 102 H 20 104/55 94 L 06/09/16 14:00 06/09/16 14:00 06/09/16 14:00 06/09/16 14:00 06/09/16 06:00 CBC, BMP 06/09/16 05:00 06/09/16 05:00 INR, PTT INR 1.45 (0.82-1.09) H 06/09/16 05:00 Fibrinogen 651.0 mg/dL (238-498) H 06/08/16 20:45 Blood Type Blood Type O POSITIVE 06/06/16 20:00 Hepatic Panel Total Bilirubin 1.7 mg/dL (0.2-1.0) H D 06/09/16 05:00 AST 36 U/L (15-37) D 06/09/16 05:00 ALT 69 U/L (12-78) D 06/09/16 05:00 Alkaline Phosphatase 110 U/L (45-117) D 06/09/16 05:00 Albumin 2.2 g/dl (3.4-5.0) L 06/09/16 05:00 Microbiology 06/06/16 20:00 Blood - Peripheral Venous Blood Culture - Final --> Escherichia Coli 06/07/16 06:44 Urine - Urine Clean Catch Urine Culture - Final 06/08/16 05:55 Blood - Peripheral Venous Blood Culture - Preliminary Problem List - Problems (1) Gallstone Assessment/Plan: Based upon CT finding of over-distended gall bladder with 2.2cm stone and dilated CBD we recommended to the patient the following so that she may make a well informed decision regarding her care. Patient's family also present: GI evaluation MRCP vs. HIDA scan If patient becomes sick (hypotensive, abd pain, tachycardic, febrile), we recommend that she go to IR for percutaneous cholecystostomy tube. Cont ICU monitoring After explaining above plan to patient she again deferred any surgical procedure. Surgery team will continue to follow patient until her transfer (awaitng transfer to [facility]) Above plan discussed with Dr. Barrios and agrees. Code(s): K80.20 - CALCULUS OF GALLBLADDER W/O CHOLECYSTITIS W/O OBSTRUCTION (2) Gram-negative bacteremia Code(s): R78.81 - BACTEREMIA (3) Neutropenic fever Code(s): D70.9 - NEUTROPENIA, UNSPECIFIED R50.81 - FEVER PRESENTING WITH CONDITIONS CLASSIFIED ELSEWHERE (4) Pancytopenia Code(s): D61.818 - OTHER PANCYTOPENIA (5) Septic shock Code(s): A41.9 - SEPSIS, UNSPECIFIED ORGANISM R65.21 - SEVERE SEPSIS WITH SEPTIC SHOCK Visit type - Case Type Case Type: ED Admission - Emergency Emergency Visit: Yes ED Registration Date: 06/07/16 Care time: The patient presented to the Emergency Department on the above date and was hospitalized for further evaluation of their emergent condition. - New patient This patient is new to me today: Yes Date on this admission: 06/09/16 <Alberto Barrios - Last Filed: 06/09/16 19:00> - Consultation REQUESTING PROVIDER: CONSULT REQUEST: We have been asked to surgically evaluate this patient for ( specify). PCP:Blaine Trinh HISTORY OF PRESENT ILLNESS: PMHx: PSHx: Home Medications Medication Instructions Recorded Calcium Carbonate/Vitamin D3 1 each PO BID 06/06/16 [Calcium 600 + Vit D 200 Tablet] Gabapentin [Neurontin -] 100 mg PO TID 06/06/16 Gluc Schmitz/Chondro Schmitz A/Vit C/Mn 1 each PO DAILY 06/06/16 [Glucosamine 1,500 Complex Cp] Montelukast Na [Singulair -] 10 mg PO DAILY 06/06/16 Multivitamin with Minerals [Icaps 1 each PO DAILY 06/06/16 Plus] Omeprazole 20 mg PO DAILY 06/06/16 Valacyclovir HCl [Valtrex -] 500 mg PO BID 06/06/16 Alendronate Na [Fosamax] 70 mg PO Q7D 06/07/16 Biotin 10,000 mcg PO DAILY 06/07/16 Lactobacillus Acidophilus 1 each PO DAILY 06/07/16 [Acidophilus] Magnesium Oxide [Magnesium] 500 mg PO DAILY 06/07/16 Selenium 200 mcg PO DAILY 06/07/16 Vitamin B Complex/Minerals [Sm 1 each PO DAILY 06/07/16 Stress Formula+Zinc Tablet] Zinc 50 mg PO DAILY 06/07/16 Allergies Allergy/AdvReac Type Severity Reaction Status Date / Time No Known Allergies Allergy Verified 06/06/16 18:43 REVIEW OF SYSTEMS: CONSTITUTIONAL: Absent: fever, chills, diaphoresis, generalized weakness, malaise, loss of appetite, weight change CARDIOVASCULAR: Absent: chest pain, syncope, palpitations, irregular heart rate, lightheadedness , peripheral edema RESPIRATORY: Absent: cough, shortness of breath, dyspnea with exertion, wheezing, stridor, hemoptysis GASTROINTESTINAL: Absent: abdominal pain, abdominal distension, nausea, vomiting, diarrhea, constipation, melena, hematochezia GENITOURINARY: Absent: dysuria, frequency, urgency, hesitancy, hematuria, flank pain, genital pain MUSCULOSKELETAL: Absent: myalgia, arthralgia, joint swelling, back pain, neck pain SKIN: Absent: rash, itching, pallor HEMATOLOGIC/IMMUNOLOGIC: Absent: easy bleeding, easy bruising, lymphadenopathy NEUROLOGIC: Absent: headache, focal weakness, paresthesias, dizziness, unsteady gait, seizure, mental status changes, bladder or bowel incontinence PSYCHIATRIC: Absent: anxiety, depression, suicidal or homicidal ideation, hallucinations. PHYSICAL EXAM: GENERAL: Awake, alert, and fully oriented, in no acute distress. HEAD: Normal with no signs of trauma. EYES: PERRL, sclera anicteric, conjunctiva clear. NECK: Normal ROM, supple without lymphadenopathy, JVD, or masses. LUNGS: Clear to auscultation bilat anteriorly. No wheezes, and no crackles. No accessory muscle use. HEART: Regular rate and rhythm. No murmurs ABDOMEN: Soft, nontender, not distended, normoactive bowel sounds, no guarding, no rebound, no masses. No organomegaly. MUSCULOSKELETAL: Normal ROM at all joints. No bony deformities or tenderness. No CVA tenderness. UPPER EXTREMITIES: 2+ pulses, warm, well-perfused. No cyanosis. Cap refill <2 seconds. No peripheral edema. LOWER EXTREMITIES: 2+ pulses, warm, well-perfused. No calf tenderness. No peripheral edema. NEUROLOGICAL: Normal speech, gait not observed. PSYCH: Cooperative. Good eye contact. Appropriate mood and affect. SKIN: Warm, dry, normal turgor, no rashes or lesions noted. Vital Signs Temperature 101.1 F H 06/09/16 14:00 Pulse Rate 104 H 06/09/16 16:00 Respiratory Rate 20 06/09/16 16:00 Blood Pressure 93/54 06/09/16 16:00 O2 Sat by Pulse Oximetry (%) 96 06/09/16 09:00 Lab Results WBC 0.6 K/mm3 (4.0-10.0) L D 06/09/16 17:00 RBC 2.40 M/mm3 (3.60-5.2) L 06/09/16 17:00 Hgb 6.8 GM/dL (10.7-15.3) L* D 06/09/16 17:00 Hct 19.6 % (32.4-45.2) L D 06/09/16 17:00 MCV 81.4 fl (80-96) 06/09/16 17:00 MCHC 34.9 g/dl (32.0-36.0) 06/09/16 17:00 RDW 16.3 % (11.6-15.6) H 06/09/16 17:00 Plt Count 15 K/MM3 (134-434) L* D 06/09/16 17:00 Sodium 140 mmol/L (136-145) 06/09/16 05:00 Potassium 3.7 mmol/L (3.5-5.1) 06/09/16 05:00 Chloride 105 mmol/L (98-107) 06/09/16 05:00 Carbon Dioxide 27 mmol/L (21-32) 06/09/16 05:00 Anion Gap 8 (8-16) 06/09/16 05:00 BUN 22 mg/dL (7-18) H 06/09/16 05:00 Creatinine 0.6 mg/dL (0.55-1.02) 06/09/16 05:00 Random Glucose 107 mg/dL (74-106) H 06/09/16 05:00 Calcium 8.2 mg/dL (8.5-10.1) L 06/09/16 05:00 Blood Type O POSITIVE 06/06/16 20:00 Antibody Screen Positive H 06/06/16 20:00 INR 1.45 (0.82-1.09) H 06/09/16 05:00 Agree MRCP GI evaluation May require ERCP if CBD stones present May require IR for percutaneous cholecystostomy if patient's clinical condition worsens Patient does not want any surgical intervention High risk
--- NOTE | 2016-06-09 15:31 | PN ---
Progress Note, Physician History of Present Illness: patient still spiking fever one blood cx result noted abd ct scan noted gall bladder finding noted - Current Medication List Current Medications: Active Medications Acetaminophen (Tylenol -) 650 mg PO Q6H PRN PRN Reason: FEVER OR PAIN Last Admin: 06/09/16 14:33 Dose: 650 mg Cefepime HCl (Maxipime 2gm Ivpb (Pre-Docked)) 2 gm IVPB BID OPAL PRN Reason: Protocol Last Admin: 06/09/16 10:37 Dose: 2 gm Dronabinol (Marinol -) 2.5 mg PO BID OPAL Last Admin: 06/09/16 10:34 Dose: 2.5 mg Sodium Chloride (Normal Saline -) 1,000 mls @ 100 mls/hr IV ASDIR OPAL Last Admin: 06/09/16 10:00 Dose: 100 mls/hr Meropenem 1 gm/ Dextrose 100 mls @ 200 mls/hr IVPB Q8H-IV OPAL PRN Reason: Protocol Last Admin: 06/09/16 10:37 Dose: 200 mls/hr Dopamine HCl/Dextrose (Dopamine 400 Mg/D5w -) 250 mls @ 9.389 mls/hr IVPB TITR OPAL; 4 MCG/KG/MIN PRN Reason: Protocol Last Titration: 06/09/16 05:00 Dose: 2 mcg/kg/min Pantoprazole Sodium (Protonix 40mg Ivpb (Pre-Docked)) 100 mls @ 200 mls/hr IVPB DAILY OPAL Last Admin: 06/09/16 13:37 Dose: 200 mls/hr Morphine Sulfate (Morphine Injection -) 1 mg IVPUSH Q4H PRN PRN Reason: PAIN Last Admin: 06/09/16 11:11 Dose: 1 mg Ondansetron HCl (Zofran Injection) 4 mg IVPB Q6H PRN PRN Reason: NAUSEA Last Admin: 06/08/16 20:50 Dose: 4 mg Phytonadione (Aqua Mephyton Injection -) 5 mg SQ DAILY OPAL Stop: 06/10/16 10:01 Last Admin: 06/09/16 10:34 Dose: 5 mg Potassium Phos/Sodium Phos (Phos-Nak Packet -) 1 packet PO TID OPAL Stop: 06/10/16 06:01 Last Admin: 06/09/16 13:38 Dose: 1 packet - Objective Vital Signs: Vital Signs Temperature 101.1 F H 06/09/16 14:00 Pulse Rate 102 H 06/09/16 14:00 Respiratory Rate 20 06/09/16 14:00 Blood Pressure 104/55 06/09/16 14:00 O2 Sat by Pulse Oximetry (%) 94 L 06/09/16 06:00 Constitutional: Yes: Calm, Mild Distress Cardiovascular: Yes: Regular Rate and Rhythm Respiratory: Yes: Regular, On Nasal O2, Poor Air Entry Gastrointestinal: Yes: Normal Bowel Sounds, Soft Musculoskeletal: Yes: WNL Extremities: Yes: WNL Neurological: Yes: Alert, Oriented Psychiatric: Yes: Alert, Oriented Labs: CBC, BMP 06/09/16 05:00 06/09/16 05:00 INR, PTT INR 1.45 (0.82-1.09) H 06/09/16 05:00 Fibrinogen 651.0 mg/dL (238-498) H 06/08/16 20:45 Assessment/Plan Neutropenic fever Pancytopenic Waldernstrom's lymphoma fever bacteremia gram negative dehydration plan continue current mgmt still awaitng identification of the bacteria one growing ecoli wbc improving now 0.9 very close watch breathing still a issue close monitoring in preventing infection repeat blood cx negative patient and family explained options about the plan for gall bladder cc time 40 min
--- NOTE | 2016-06-09 15:36 | PN ---
Progress Note (short form) - Note Progress Note: Patient seen and examined Remains febrile with pancytopenia Issue of possible cholecystitis raised. Patient denies significant abdominal complaints and declines work up Pancytopenia being supported with blood products prn. Last Vital Signs Temp Pulse Resp BP Pulse Ox 101.1 F H 102 H 20 104/55 94 L 06/09/16 14:00 06/09/16 14:00 06/09/16 14:00 06/09/16 14:00 06/09/16 06:00 HEENT: EDD, EOM Intact Oropharynx: No thrush, No mucositis Neck: Supple Cor: RSR, systolici murmur Lungs:diminished breath sounds bilaterally Abd: Soft, Normal bowel sounds, No organomegaly Ext:No significant edema Skin: No rashes, Integument intact CBC, BMP 06/09/16 05:00 06/09/16 05:00 INR, PTT INR 1.45 (0.82-1.09) H 06/09/16 05:00 Fibrinogen 651.0 mg/dL (238-498) H 06/08/16 20:45 Current Medications Generic Name Dose Route Start Last Admin Trade Name Freq PRN Reason Stop Dose Admin Acetaminophen 650 mg 06/07/16 02:16 06/09/16 14:33 Tylenol - PO 650 mg Q6H PRN Administration FEVER OR PAIN Dronabinol 2.5 mg 06/09/16 10:00 06/09/16 10:34 Marinol - PO 2.5 mg BID OPAL Administration Sodium Chloride 1,000 mls @ 100 mls/hr 06/07/16 09:45 06/09/16 10:00 Normal Saline - IV 100 mls/hr ASDIR OPAL Administration Meropenem 1 gm/ Dextrose 100 mls @ 200 mls/hr 06/07/16 18:00 06/09/16 10:37 IVPB 200 mls/hr Q8H-IV OPAL Administration Protocol Dopamine HCl/Dextrose 250 mls @ 9.389 mls/hr 06/08/16 15:15 06/09/16 05:00 Dopamine 400 Mg/D5w - IVPB 2 mcg/kg/min TITR OPAL Titration Protocol 4 MCG/KG/MIN Pantoprazole Sodium 100 mls @ 200 mls/hr 06/09/16 12:30 06/09/16 13:37 Protonix 40mg Ivpb (Pre-Docked) IVPB 200 mls/hr DAILY POAL Administration Morphine Sulfate 1 mg 06/09/16 04:22 06/09/16 11:11 Morphine Injection - IVPUSH 1 mg Q4H PRN Administration PAIN Ondansetron HCl 4 mg 06/07/16 02:16 06/08/16 20:50 Zofran Injection IVPB 4 mg Q6H PRN Administration NAUSEA Phytonadione 5 mg 06/08/16 17:30 06/09/16 10:34 Aqua Mephyton Injection - SQ 06/10/16 10:01 5 mg DAILY OPAL Administration Potassium Phos/Sodium Phos 1 packet 06/09/16 14:00 06/09/16 13:38 Phos-Nak Packet - PO 06/10/16 06:01 1 packet TID OPAL Administration Impression: Waldenstroms Macroglobulinemia ?? cholecystitis In theory , patient could have platelet and FFP infused which would allow cholecystostomy tube. She however does not want to pursue evaluation of her GB Pancytopenia. Plan: Daily monitoring of hemogram and transfusion of platelets, packed cells, FFP prn. Transfuse platelets @ 10-15K; Packed cell to maintain Hct at 23-25%. Antibiotics per I.D.
[2016-06-09 17:44] LABS: MCH 28.4 pg (25.7-33.7); MCHC 34.9 g/dl (32.0-36.0); MEAN CELL VOLUME 81.4 fl (80-96); MEAN PLT VOLUME 8.5 fl (7.5-11.1); RDW 16.3 % (11.6-15.6)
[2016-06-09 17:50] LABS: PLATELET COUNT 15 K/MM3 (134-434); WHITE BLOOD COUNT 0.6 K/mm3 (4.0-10.0)
[2016-06-09 19:41] LABS: PLATELET ESTIMATE MARKEDLY DECREASED (NORMAL)
[2016-06-10] MEDS ORDERED: PT OWN MED DRAWER 7, Y5N ONE ×3 (01:44→16:05)
[2016-06-10] MEDS: MEROPENEM 1 GM in DEXTROSE 5%-WATER - 100 ML IVPB SCH ×3 (01:47→17:40)
[2016-06-10] MEDS: SODIUM CHLORIDE 1,000 ML IV SCH ×3 (02:00→10:57)
[2016-06-10] MEDS: ACETAMINOPHEN 325 MG TABLET (FP) PO PRN ×2 (02:31→15:01)
[2016-06-10 05:44] LABS: MCH 27.9 pg (25.7-33.7); MCHC 34.3 g/dl (32.0-36.0); MEAN CELL VOLUME 81.1 fl (80-96); MEAN PLT VOLUME 8.4 fl (7.5-11.1); RDW 17.3 % (11.6-15.6)
[2016-06-10 06:01] LABS: PLATELET COUNT 13 K/MM3 (134-434); WHITE BLOOD COUNT 0.5 K/mm3 (4.0-10.0)
[2016-06-10 06:08] LABS: ALBUMIN 1.8 g/dl (3.4-5.0); ANION GAP 8 (8-16); BILIRUBIN,TOTAL 1.3 mg/dL (0.2-1.0); CALCIUM 7.6 mg/dL (8.5-10.1); CO2 27 mmol/L (21-32); CREATININE 0.5 mg/dL (0.55-1.02); GLUCOSE,RANDOM 111 mg/dL (74-106); MAGNESIUM 2.2 mg/dL (1.8-2.4); TOT PROT 5.7 g/dl (6.4-8.2)
[2016-06-10 06:18] LABS: ALK PHOS 121 U/L (45-117); PHOSPHOROUS 2.2 mg/dL (2.5-4.9); SGOT/AST 36 U/L (15-37); SGPT/ALT 78 U/L (12-78)
[2016-06-10] MEDS: NAPH,MB-DB/K PH,MBDB POWDER PACKET PO SCH (06:22)
[2016-06-10] MEDS: morphine CARPU-JECT 2 MG/1 ML DISP.SYRIN IVPUSH PRN ×4 (06:56→22:10)
[2016-06-10] MEDS: DRONABINOL 2.5 MG CAPSULE PO SCH ×2 (07:47→17:40)
--- NOTE | 2016-06-10 08:42 | PN ---
Physical Exam: SUBJECTIVE: Patient seen and examined feels well, was feeling cold last night after receiving sponge bath. discussed cholecystitis and options for drain, surgery and patient declined further intervention, just wants antibiotics. OBJECTIVE: Vital Signs Period Temp Pulse Resp BP Sys/Hilton Pulse Ox Last 24 Hr 97.5 F-101.4 F 92-107 18-28 86-104/52-68 96-96 GENERAL: The patient is awake, alert, and fully oriented, in no acute distress. LUNGS: scattered rhonchi and fine crackles in left base. clear on right. HEART: Regular rate and rhythm, S1, S2 without murmur, rub or gallop. ABDOMEN: Soft, nontender, nondistended, normoactive bowel sounds EXTREMITIES: 2+ pulses, warm, well-perfused, no edema. NEUROLOGICAL: Cranial nerves II through XII grossly intact. Normal speech, gait not observed. Laboratory Results - last 24 hr 06/08/16 06/09/16 06/09/16 10:20 05:00 17:00 WBC 0.6 L D RBC 2.40 L Hgb 6.8 L* D Hct 19.6 L D MCV 81.4 MCHC 34.9 RDW 16.3 H Plt Count 15 L* D MPV 8.5 Neutrophils % 10.0 L 6.0 L D Lymphocytes % 88.0 H 94.0 H Monocytes % 2.0 L Differential Comment Manual diff done Manual diff done Platelet Estimate Markedly decreased Sodium Potassium Chloride Carbon Dioxide Anion Gap BUN Creatinine Creat Clearance w eGFR Random Glucose Calcium Phosphorus Magnesium Total Bilirubin AST ALT Alkaline Phosphatase Total Protein Albumin Direct Antiglob Test Negative Crossmatch See Detail 06/10/16 06/10/16 05:15 05:15 WBC 0.5 L RBC 2.72 L Hgb 7.6 L D Hct 22.1 L MCV 81.1 MCHC 34.3 RDW 17.3 H Plt Count 13 L* MPV 8.4 Neutrophils % 3.0 L Lymphocytes % 95.0 H Monocytes % 2.0 L Differential Comment Platelet Estimate Sodium 141 Potassium 3.5 Chloride 106 Carbon Dioxide 27 Anion Gap 8 BUN 22 H Creatinine 0.5 L Creat Clearance w eGFR > 60 Random Glucose 111 H Calcium 7.6 L Phosphorus 2.2 L D Magnesium 2.2 Total Bilirubin 1.3 H D AST 36 ALT 78 Alkaline Phosphatase 121 H Total Protein 5.7 L Albumin 1.8 L Direct Antiglob Test Crossmatch Active Medications Generic Name Dose Route Start Last Admin Trade Name Freq PRN Reason Stop Dose Admin Acetaminophen 650 mg 06/07/16 02:16 06/10/16 02:31 Tylenol - PO 650 mg Q6H PRN Administration FEVER OR PAIN Dronabinol 2.5 mg 06/10/16 08:00 06/10/16 07:47 Marinol - PO 2.5 mg BID@0800,1700 OPAL Administration Sodium Chloride 1,000 mls @ 100 mls/hr 06/07/16 09:45 06/10/16 02:00 Normal Saline - IV 100 mls/hr ASDIR OPAL Administration Meropenem 1 gm/ Dextrose 100 mls @ 200 mls/hr 06/07/16 18:00 06/10/16 01:47 IVPB 200 mls/hr Q8H-IV OPAL Administration Protocol Pantoprazole Sodium 100 mls @ 200 mls/hr 06/09/16 12:30 06/09/16 13:37 Protonix 40mg Ivpb (Pre-Docked) IVPB 200 mls/hr DAILY OPAL Administration Morphine Sulfate 1 mg 06/09/16 04:22 06/10/16 06:56 Morphine Injection - IVPUSH 1 mg Q4H PRN Administration PAIN Ondansetron HCl 4 mg 06/07/16 02:16 06/08/16 20:50 Zofran Injection IVPB 4 mg Q6H PRN Administration NAUSEA Phytonadione 5 mg 06/08/16 17:30 06/09/16 10:34 Aqua Mephyton Injection - SQ 06/10/16 10:01 5 mg DAILY OPAL Administration 06/[address] Torres [phone], gave him an update regarding patient's vitals, labs, imaging findings, agrees with ERCP as next step but to proceed with antibiotics only sin/ce patient has declined further intervention. his office will also inquire about bed availibility and keep me updated - duplex negative for DVT ASSESSMENT/PLAN: 75 y/o pleasant unfortunate lady with h/o Waldenstrom macroglobuniema undergoing chemo with Daratumunab (last dose 2 weeks ago) pancytopenic and recurrent transfusions , h/o typhlitis , PNAs, who presented with fever, found to be septic shock with pansensitive e.coli bactermia. - called bedboard at [facility] - no beds available, she is on the list, they are trying to make a bed for her. - If patient is not transferred to [facility] by wednesday will discuss palliative care options with family. Will not consult GI as there is nothing the family will consent to as for procedures. #septic shock with e.coli bacteremia and fevers on antibiotics. - ultrasound shows concern for cholecystitis, patient declined interventions, discussed with ICU team, surgical team(Dr. Barrios) she adamently declined further interventions and imaging. - The cholecystitis could be possible source of fevers - continue Cefepime, Meropenem - day 4 #Hypotension - improved. - off dopamine #Pancytopenia; anemia/thrombocytopenia - likely due to recent chemotherapy administration (Daratumunab 2 weeks ago) and disease process from Waldenstrom's macroglobuniema - s/p 5 units prbc's, 2 units platelets, will repeat CBC at 6pm to trend - unlikely to be DIC, low fibrinogen degradation products with high fibrinogen levels #dvt - thrombocytopenia #Diet - sodium controlled diet with ensure TID Visit type - Emergency Visit Emergency Visit: No - New Patient This patient is new to me today: No - Critical Care Critical Care patient: Yes Total Critical Care Time (in minutes): 44 Critical Care Statement: The care of this patient involved high complexity decision making to prevent further life threatening deterioration of the patient 's condition and/or to evalute & treat vital organ system(s) failure or risk of failure.
[2016-06-10] MEDS: PHYTONADIONE 10 MG/1 ML AMP SQ SCH (09:12)
[2016-06-10] MEDS: PANTOPRAZOLE SODIUM 100 ML IVPB SCH (09:46)
--- NOTE | 2016-06-10 10:51 | PN ---
Physical Exam: SUBJECTIVE: Patient seen and examined at bedside this AM. Febrile to 101.4 last night. BP systolic 86-100 last night off dopamine. States she feels fine & is still adamant about not addressing gallstones. Re-explained importance of HIDA scan and possibility of sepsis d/t cholecystitis. She understands and acknowledges the risks, but still refuses treatment or further diagnostic testing. OBJECTIVE: Vital Signs Period Temp Pulse Resp BP Sys/Hilton Pulse Ox Last 24 Hr 97.5 F-101.4 F 92-107 18-28 86-104/52-68 96-96 GENERAL: The patient is awake, alert, and fully oriented. Generalised malaise but in no acute distress. HEENT: Atraumatic, EOMI, PERRLA, No lymphadenopathy noted, moist membranes LUNGS: CTA bilaterally HEART: RRR, S1S2 ABDOMEN: Soft, nontender, nondistended EXTREMITIES: 2+ pulses, warm, well-perfused, no edema. Some bruising/petechiae noted on lower extremity. NEUROLOGICAL: Cranial nerves II through XII grossly intact. Normal speech, gait not observed. PSYCH: Normal mood, normal affect. Laboratory Results - last 24 hr 06/08/16 06/09/16 06/09/16 10:20 05:00 17:00 WBC 0.6 L D RBC 2.40 L Hgb 6.8 L* D Hct 19.6 L D MCV 81.4 MCHC 34.9 RDW 16.3 H Plt Count 15 L* D MPV 8.5 Neutrophils % 10.0 L 6.0 L D Lymphocytes % 88.0 H 94.0 H Monocytes % 2.0 L Differential Comment Manual diff done Manual diff done Platelet Estimate Markedly decreased Sodium Potassium Chloride Carbon Dioxide Anion Gap BUN Creatinine Creat Clearance w eGFR Random Glucose Calcium Phosphorus Magnesium Total Bilirubin AST ALT Alkaline Phosphatase Total Protein Albumin Direct Antiglob Test Negative Crossmatch See Detail 06/10/16 06/10/16 05:15 05:15 WBC 0.5 L RBC 2.72 L Hgb 7.6 L D Hct 22.1 L MCV 81.1 MCHC 34.3 RDW 17.3 H Plt Count 13 L* MPV 8.4 Neutrophils % 3.0 L Lymphocytes % 95.0 H Monocytes % 2.0 L Differential Comment Platelet Estimate Sodium 141 Potassium 3.5 Chloride 106 Carbon Dioxide 27 Anion Gap 8 BUN 22 H Creatinine 0.5 L Creat Clearance w eGFR > 60 Random Glucose 111 H Calcium 7.6 L Phosphorus 2.2 L D Magnesium 2.2 Total Bilirubin 1.3 H D AST 36 ALT 78 Alkaline Phosphatase 121 H Total Protein 5.7 L Albumin 1.8 L Direct Antiglob Test Crossmatch Active Medications Generic Name Dose Route Start Last Admin Trade Name Freq PRN Reason Stop Dose Admin Acetaminophen 650 mg 06/07/16 02:16 06/10/16 02:31 Tylenol - PO 650 mg Q6H PRN Administration FEVER OR PAIN Dronabinol 2.5 mg 06/10/16 08:00 06/10/16 07:47 Marinol - PO 2.5 mg BID@0800,1700 OPAL Administration Meropenem 1 gm/ Dextrose 100 mls @ 200 mls/hr 06/07/16 18:00 06/10/16 09:13 IVPB 200 mls/hr Q8H-IV OPAL Administration Protocol Pantoprazole Sodium 100 mls @ 200 mls/hr 06/09/16 12:30 06/10/16 09:46 Protonix 40mg Ivpb (Pre-Docked) IVPB 200 mls/hr DAILY OPAL Administration Morphine Sulfate 1 mg 06/09/16 04:22 06/10/16 06:56 Morphine Injection - IVPUSH 1 mg Q4H PRN Administration PAIN Ondansetron HCl 4 mg 06/07/16 02:16 06/08/16 20:50 Zofran Injection IVPB 4 mg Q6H PRN Administration NAUSEA ASSESSMENT/PLAN: 75yo female with PMH of Waldenstrom's macroglobulinemia, pancytopenia who presented with malaise & fevers to 105 x 2 days. Reports epistaxis (clots) as well. Awaiting transfer to [facility] pending bed placement. #Neutropenic fever; gram (-) bacteremia, lactose fermenting rods -continue Meropenem, as per ID -stable BP without pressors -unable to place central line due to thrombocytopenia -CXR in AM -plan is to transfer patient back to [facility], pending bed availability #Gallstones, dilated CBD -explained importance of HIDA scan to patient to workup possible cholecystitis -patient states she understands, but refuses to consent to exam -urged to reconsider, states she is not interested in further testing #Pancytopenia; anemia/thrombocytopenia -secondary to recent chemotherapy administration (Daratumunab 2 weeks ago) -Hg 7.6 today (received 1unit PRBC last night) -ordered another 1unit PRBC & 1unit platelets for today -thus far, has been given 5units PRBC, 1unit FFP & 3units platelets (excluding today's orders) -following coags #Acute Kidney Injury -likely secondary to hypotension due to sepsis -Creatinine now stable 0.5 -continue IVF administration, trend labs -avoid nephrotoxic meds Prophylaxis/FEN -SCD's, PPI -NS@50, Repleted Phosphorus, Neutropenic Diet Visit type - Emergency Visit Emergency Visit: Yes ED Registration Date: 06/07/16 Care time: The patient presented to the Emergency Department on the above date and was hospitalized for further evaluation of their emergent condition. - New Patient This patient is new to me today: No - Critical Care Critical Care patient: Yes Total Critical Care Time (in minutes): 45 Critical Care Statement: The care of this patient involved high complexity decision making to prevent further life threatening deterioration of the patient 's condition and/or to evalute & treat vital organ system(s) failure or risk of failure.
--- NOTE | 2016-06-10 11:10 | PN ---
Progress Note (short form) - Note Progress Note: No acute events Denies abdominal pain On diet Vital Signs - 24 hr 06/09/16 06/09/16 06/09/16 12:00 14:00 16:00 Temperature 101.1 F H Pulse Rate 102 H 102 H 104 H Respiratory 20 20 20 Rate Blood Pressure 100/64 104/55 93/54 O2 Sat by Pulse Oximetry (%) 06/09/16 06/09/16 06/09/16 19:30 20:00 21:00 Temperature 97.7 F 97.5 F L 97.6 F Pulse Rate 96 H 96 H 100 H Respiratory 21 28 H 28 H Rate Blood Pressure 90/55 93/55 102/55 O2 Sat by Pulse Oximetry (%) 06/09/16 06/09/16 06/10/16 22:00 23:00 00:00 Temperature 97.8 F Pulse Rate 103 H 106 H 107 H Respiratory 24 22 25 H Rate Blood Pressure 101/58 98/54 96/52 O2 Sat by Pulse 96 Oximetry (%) 06/10/16 06/10/16 06/10/16 01:00 02:00 03:00 Temperature 101.4 F H Pulse Rate 103 H 101 H 99 H Respiratory 22 23 24 Rate Blood Pressure 97/59 100/61 93/57 O2 Sat by Pulse Oximetry (%) 06/10/16 06/10/16 06/10/16 04:00 05:00 06:00 Temperature 98 F 97.7 F Pulse Rate 95 H 92 H 92 H Respiratory 23 18 20 Rate Blood Pressure 96/56 90/56 87/54 O2 Sat by Pulse Oximetry (%) 06/10/16 06/10/16 06/10/16 07:00 08:04 09:00 Temperature Pulse Rate 95 H Respiratory 22 Rate Blood Pressure 86/68 O2 Sat by Pulse 96 96 Oximetry (%) Abd soft, no rebound tenderness CBC,CMP WBC 0.5 K/mm3 (4.0-10.0) L 06/10/16 05:15 RBC 2.72 M/mm3 (3.60-5.2) L 06/10/16 05:15 Hgb 7.6 GM/dL (10.7-15.3) L D 06/10/16 05:15 Hct 22.1 % (32.4-45.2) L 06/10/16 05:15 MCV 81.1 fl (80-96) 06/10/16 05:15 MCHC 34.3 g/dl (32.0-36.0) 06/10/16 05:15 RDW 17.3 % (11.6-15.6) H 06/10/16 05:15 Plt Count 13 K/MM3 (134-434) L* 06/10/16 05:15 MPV 8.4 fl (7.5-11.1) 06/10/16 05:15 Neutrophils % 3.0 % (42.8-82.8) L 06/10/16 05:15 Lymphocytes % 95.0 % (8-40) H 06/10/16 05:15 Monocytes % 2.0 % (3.8-10.2) L 06/10/16 05:15 Eosinophils % Foreign Language Stenographer 06/09/16 05:00 Basophils % Foreign Language Stenographer 06/09/16 05:00 Metamyelocytes 1 % (0-2) 06/08/16 05:45 Differential Comment Manual diff done 06/09/16 17:00 Platelet Estimate Markedly decreased (NORMAL) 06/09/16 17:00 Platelet Comment No clumping noted 06/06/16 20:00 Polychromasia 1+ 06/06/16 20:00 Hypochromic-Microcytic 2+ 06/06/16 20:00 Basophilic Stippling Few 06/06/16 20:00 Anisocytosis 2+ 06/06/16 20:00 Microcytosis 2+ 06/06/16 20:00 Target Cells 1+ 06/06/16 20:00 Haptoglobin 235 mg/dL (34-200) H 06/08/16 09:23 Sodium 141 mmol/L (136-145) 06/10/16 05:15 Potassium 3.5 mmol/L (3.5-5.1) 06/10/16 05:15 Chloride 106 mmol/L (98-107) 06/10/16 05:15 Carbon Dioxide 27 mmol/L (21-32) 06/10/16 05:15 Anion Gap 8 (8-16) 06/10/16 05:15 BUN 22 mg/dL (7-18) H 06/10/16 05:15 Creatinine 0.5 mg/dL (0.55-1.02) L 06/10/16 05:15 Creat Clearance w eGFR > 60 (>60) 06/10/16 05:15 Random Glucose 111 mg/dL (74-106) H 06/10/16 05:15 Lactic Acid 1.027 mmol/L (0.4-2.0) 06/08/16 07:15 Calcium 7.6 mg/dL (8.5-10.1) L 06/10/16 05:15 Phosphorus 2.2 mg/dL (2.5-4.9) L D 06/10/16 05:15 Magnesium 2.2 mg/dL (1.8-2.4) 06/10/16 05:15 Total Bilirubin 1.3 mg/dL (0.2-1.0) H D 06/10/16 05:15 AST 36 U/L (15-37) 06/10/16 05:15 ALT 78 U/L (12-78) 06/10/16 05:15 Alkaline Phosphatase 121 U/L (45-117) H 06/10/16 05:15 LD Total 143 U/L (84-246) 06/08/16 05:45 Creatine Kinase 66 IU/L (26-192) 06/06/16 20:00 Troponin I < 0.02 ng/ml (0.00-0.05) 06/06/16 20:00 Total Protein 5.7 g/dl (6.4-8.2) L 06/10/16 05:15 Albumin 1.8 g/dl (3.4-5.0) L 06/10/16 05:15 Discussed options with the patient again including the possibility of her gallbladder being a source of infection and possible septic shock She understands and still does not want any surgical intervention Does not want further imaging including MRCP or HIDA Does not want GI evaluation Does not want percutaneous cholecystostomy by IR even if for life saving measures at this time
--- NOTE | 2016-06-10 11:22 | PN ---
Teaching Attending Note Name of Resident: Wade Alexander ATTENDING PHYSICIAN STATEMENT I saw and evaluated the patient. I reviewed the resident's note and discussed the case with the resident. I agree with the resident's findings and plan as documented. SUBJECTIVE: Pt seen and examined in the ICU. Denies abdominal pain, still some nausea. Febrile overnight. OBJECTIVE: Last Vital Signs Temp Pulse Resp BP Pulse Ox 98.2 F 109 H 20 96/57 96 06/10/16 10:00 06/10/16 11:01 06/10/16 11:01 06/10/16 11:01 06/10/16 09:00 Intake & Output 06/07/16 06/08/16 06/09/16 06/10/16 23:59 23:59 23:59 23:59 Intake Total 4367.5 3696.4 1100 Output Total 500 Balance 3867.5 3696.4 1100 Weight 138 lb 8 oz 138 lb 139 lb 4.8 oz 142 lb 6.698 oz Gen: mildly tachypneic at rest Heart: tachycardic, regular Lung: decreased breath sounds at the bases Abd: soft, nontender Ext: trace edema CBC, BMP 06/10/16 05:15 06/10/16 05:15 Active Medications Acetaminophen (Tylenol -) 650 mg PO Q6H PRN PRN Reason: FEVER OR PAIN Last Admin: 06/10/16 02:31 Dose: 650 mg Dronabinol (Marinol -) 2.5 mg PO BID@0800,1700 OPAL Last Admin: 06/10/16 07:47 Dose: 2.5 mg Meropenem 1 gm/ Dextrose 100 mls @ 200 mls/hr IVPB Q8H-IV OPAL PRN Reason: Protocol Last Admin: 06/10/16 09:13 Dose: 200 mls/hr Pantoprazole Sodium (Protonix 40mg Ivpb (Pre-Docked)) 100 mls @ 200 mls/hr IVPB DAILY OPAL Last Admin: 06/10/16 09:46 Dose: 200 mls/hr Sodium Chloride (Normal Saline -) 1,000 mls @ 50 mls/hr IV ASDIR OPAL Last Admin: 06/10/16 10:57 Dose: 50 mls/hr Morphine Sulfate (Morphine Injection -) 1 mg IVPUSH Q4H PRN PRN Reason: PAIN Last Admin: 06/10/16 06:56 Dose: 1 mg Ondansetron HCl (Zofran Injection) 4 mg IVPB Q6H PRN PRN Reason: NAUSEA Last Admin: 06/08/16 20:50 Dose: 4 mg ASSESSMENT AND PLAN: Neutropenic Septic Shock E Coli Bacteremia Waldenstrom's Macroglobulinemia Severe Anemia Severe Thrombocytopenia Epistaxis r/o Acute Cholecystitis - continue antibiotics - f/u cultures - monitor off dopamine gtt as long as SBP >80 - transfuse PRBC, platelets - monitor CBC, coags - offered HIDA scan to r/o biliary obstruction but pt adamantly refusing further procedures/diagnostic testing - O2 to keep spO2 >90% - neutropenic precautions - transfer to [facility] when bed available - DVT prophylaxis - can transfer to telemetry in AM if remains off pressors Problem List - Problems (1) Fever Code(s): R50.9 - FEVER, UNSPECIFIED (2) Neutropenic fever Code(s): D70.9 - NEUTROPENIA, UNSPECIFIED R50.81 - FEVER PRESENTING WITH CONDITIONS CLASSIFIED ELSEWHERE (3) Pancytopenia Code(s): D61.818 - OTHER PANCYTOPENIA (4) Waldenstrom's disease Code(s): C88.0 - WALDENSTROM MACROGLOBULINEMIA (5) Thrombocytopenia Code(s): D69.6 - THROMBOCYTOPENIA, UNSPECIFIED (6) Anemia Code(s): D64.9 - ANEMIA, UNSPECIFIED (7) Sepsis Code(s): A41.9 - SEPSIS, UNSPECIFIED ORGANISM (8) Shock Code(s): R57.9 - SHOCK, UNSPECIFIED (9) Septic shock Code(s): A41.9 - SEPSIS, UNSPECIFIED ORGANISM R65.21 - SEVERE SEPSIS WITH SEPTIC SHOCK (10) Gram-negative bacteremia Code(s): R78.81 - BACTEREMIA
--- NOTE | 2016-06-10 17:45 | PN ---
Progress Note, Physician History of Present Illness: patient stable still spiking fevers says she is doing well - Current Medication List Current Medications: Active Medications Acetaminophen (Tylenol -) 650 mg PO Q6H PRN PRN Reason: FEVER OR PAIN Last Admin: 06/10/16 15:01 Dose: 650 mg Dronabinol (Marinol -) 2.5 mg PO BID@0800,1700 OPAL Last Admin: 06/10/16 17:40 Dose: 2.5 mg Meropenem 1 gm/ Dextrose 100 mls @ 200 mls/hr IVPB Q8H-IV OPAL PRN Reason: Protocol Last Admin: 06/10/16 17:40 Dose: 200 mls/hr Pantoprazole Sodium (Protonix 40mg Ivpb (Pre-Docked)) 100 mls @ 200 mls/hr IVPB DAILY OPAL Last Admin: 06/10/16 09:46 Dose: 200 mls/hr Sodium Chloride (Normal Saline -) 1,000 mls @ 50 mls/hr IV ASDIR OPAL Last Admin: 06/10/16 10:57 Dose: 50 mls/hr Morphine Sulfate (Morphine Injection -) 1 mg IVPUSH Q4H PRN PRN Reason: PAIN Last Admin: 06/10/16 12:15 Dose: 1 mg Ondansetron HCl (Zofran Injection) 4 mg IVPB Q6H PRN PRN Reason: NAUSEA Last Admin: 06/08/16 20:50 Dose: 4 mg - Objective Vital Signs: Vital Signs Temperature 99.7 F H 06/10/16 16:06 Pulse Rate 108 H 06/10/16 16:06 Respiratory Rate 24 06/10/16 16:06 Blood Pressure 103/62 06/10/16 16:06 O2 Sat by Pulse Oximetry (%) 96 06/10/16 15:32 Constitutional: Yes: No Distress, Calm HENT: Yes: Atraumatic Neck: Yes: Supple Cardiovascular: Yes: Regular Rate and Rhythm Respiratory: Yes: Regular, Poor Air Entry Gastrointestinal: Yes: Normal Bowel Sounds, Soft Extremities: Yes: Other Neurological: Yes: Alert, Oriented Psychiatric: Yes: Alert Labs: CBC, BMP 06/10/16 05:15 06/10/16 05:15 INR, PTT INR 1.45 (0.82-1.09) H 06/09/16 05:00 Fibrinogen 651.0 mg/dL (238-498) H 06/08/16 20:45 Assessment/Plan Neutropenic fever Pancytopenic Waldernstrom's lymphoma fever bacteremia gram negative dehydration Problem List - Problems (1) Fever Code(s): R50.9 - FEVER, UNSPECIFIED (2) Neutropenic fever Code(s): D70.9 - NEUTROPENIA, UNSPECIFIED R50.81 - FEVER PRESENTING WITH CONDITIONS CLASSIFIED ELSEWHERE (3) Pancytopenia Code(s): D61.818 - OTHER PANCYTOPENIA (4) Waldenstrom's disease Code(s): C88.0 - WALDENSTROM MACROGLOBULINEMIA (5) Thrombocytopenia Code(s): D69.6 - THROMBOCYTOPENIA, UNSPECIFIED (6) Anemia Code(s): D64.9 - ANEMIA, UNSPECIFIED (7) Sepsis Code(s): A41.9 - SEPSIS, UNSPECIFIED ORGANISM (8) Shock Code(s): R57.9 - SHOCK, UNSPECIFIED (9) Septic shock Code(s): A41.9 - SEPSIS, UNSPECIFIED ORGANISM R65.21 - SEVERE SEPSIS WITH SEPTIC SHOCK (10) Gram-negative bacteremia Code(s): R78.81 - BACTEREMIA plan continue abx if patient spikes fever need to cx again patient has refused all procedures uptil now all cx report noted repeat cxs negative close monitoring patient still sick cc time 40 min
--- NOTE | 2016-06-10 18:54 | PN ---
Progress Note (short form) - Note Progress Note: Patient seen and examined Feels well. Last Vital Signs Temp Pulse Resp BP Pulse Ox 98.2 F 90 24 87/57 96 06/10/16 18:00 06/10/16 18:00 06/10/16 18:00 06/10/16 18:00 06/10/16 15:32 HEENT: EDD, EOM Intact Oropharynx: No thrush, No mucositis Cor: RSR, No murmurs, No gallops Lungs: Clear to P&A Abd: Soft, Normal bowel sounds, No organomegaly Ext:No significant edema Abnormal Lab Results 06/06/16 06/07/16 06/08/16 20:00 00:06 10:20 WBC RBC Hgb Hct RDW Plt Count Neutrophils % Lymphocytes % Monocytes % BUN Creatinine Random Glucose Calcium Phosphorus Total Bilirubin Alkaline Phosphatase Total Protein Albumin Antibody Screen Positive H Crossmatch See Detail See Detail See Detail 06/09/16 06/10/16 06/10/16 17:00 05:15 05:15 WBC 0.5 L RBC 2.72 L Hgb 7.6 L D Hct 22.1 L RDW 17.3 H Plt Count 13 L* Neutrophils % 6.0 L D 3.0 L Lymphocytes % 94.0 H 95.0 H Monocytes % 2.0 L BUN 22 H Creatinine 0.5 L Random Glucose 111 H Calcium 7.6 L Phosphorus 2.2 L D Total Bilirubin 1.3 H D Alkaline Phosphatase 121 H Total Protein 5.7 L Albumin 1.8 L Antibody Screen Crossmatch 06/10/16 11:40 WBC RBC Hgb Hct RDW Plt Count Neutrophils % Lymphocytes % Monocytes % BUN Creatinine Random Glucose Calcium Phosphorus Total Bilirubin Alkaline Phosphatase Total Protein Albumin Antibody Screen Positive H Crossmatch See Detail Current Medications Acetaminophen (Tylenol -) 650 mg PO Q6H PRN PRN Reason: FEVER OR PAIN Last Admin: 06/10/16 15:01 Dose: 650 mg Dronabinol (Marinol -) 2.5 mg PO BID@0800,1700 OPAL Last Admin: 06/10/16 17:40 Dose: 2.5 mg Meropenem 1 gm/ Dextrose 100 mls @ 200 mls/hr IVPB Q8H-IV OPAL PRN Reason: Protocol Last Admin: 06/10/16 17:40 Dose: 200 mls/hr Pantoprazole Sodium (Protonix 40mg Ivpb (Pre-Docked)) 100 mls @ 200 mls/hr IVPB DAILY OPAL Last Admin: 06/10/16 09:46 Dose: 200 mls/hr Sodium Chloride (Normal Saline -) 1,000 mls @ 50 mls/hr IV ASDIR OPAL Last Admin: 06/10/16 10:57 Dose: 50 mls/hr Morphine Sulfate (Morphine Injection -) 1 mg IVPUSH Q4H PRN PRN Reason: PAIN Last Admin: 06/10/16 17:51 Dose: 1 mg Ondansetron HCl (Zofran Injection) 4 mg IVPB Q6H PRN PRN Reason: NAUSEA Last Admin: 06/08/16 20:50 Dose: 4 mg A/P 75 y/o patient s/p 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 Poor performance status Daratumumab interfering with type and cross match. blood bank was bale to procure type and screen [place] [facility] [place] HAs anti C PAtient has been transfusion dependent No obvious bleeding Getting PRBCs Cneg. On antibiotics will give trial of vitamin K discussed with family at bed side
--- NOTE | 2016-06-10 19:40 | PN ---
Teaching Attending Note Name of Resident: Hernandez Dumont ATTENDING PHYSICIAN STATEMENT I saw and evaluated the patient. I reviewed the resident's note and discussed the case with the resident. I agree with the resident's findings and plan as documented. SUBJECTIVE: Very nice lady, has no new complains. No fever or chills, no shortness of breath OBJECTIVE: Vital Signs Temperature 98.2 F 06/10/16 18:00 Pulse Rate 90 06/10/16 18:00 Respiratory Rate 24 06/10/16 18:00 Blood Pressure 87/57 06/10/16 18:00 O2 Sat by Pulse Oximetry (%) 96 06/10/16 15:32 GENERAL: Awake, alert, and fully oriented, in no acute distress. HEAD: Normal with no signs of trauma. EYES: Pupils equal, round and reactive to light, extraocular movements intact, sclera anicteric, conjunctiva clear. EARS, NOSE, THROAT: (+) Nose bruise. Ears normal, oropharynx clear without exudates. Moist mucous membranes. NECK: Normal range of motion, supple without lymphadenopathy, JVD, or masses. LUNGS: Breath sounds equal, clear to auscultation bilaterally. No wheezes, and no crackles. No accessory muscle use. HEART: Regular rate and rhythm, normal S1 and S2 without murmur, rub or gallop. ABDOMEN: Soft, nontender, not distended, normoactive bowel sounds, no guarding, no rebound, no masses. No hepatomegaly or splenomegaly. MUSCULOSKELETAL: Normal range of motion at all joints. No bony deformities or tenderness. No CVA tenderness. EXTREMITIES: (+) Petechiae RLE and bilaterally at the knees. 2+ pulses, warm, well-perfused. No calf tenderness. No peripheral edema. NEUROLOGICAL: Cranial nerves II-XII intact. Normal speech. Normal gait. PSYCHIATRIC: Cooperative. Good eye contact. Appropriate mood and affect. SKIN: Warm, dry, normal turgor, no rashes or lesions noted. CBCD WBC 0.5 K/mm3 (4.0-10.0) L 06/10/16 05:15 RBC 2.72 M/mm3 (3.60-5.2) L 06/10/16 05:15 Hgb 7.6 GM/dL (10.7-15.3) L D 06/10/16 05:15 Hct 22.1 % (32.4-45.2) L 06/10/16 05:15 MCV 81.1 fl (80-96) 06/10/16 05:15 MCHC 34.3 g/dl (32.0-36.0) 06/10/16 05:15 RDW 17.3 % (11.6-15.6) H 06/10/16 05:15 Plt Count 13 K/MM3 (134-434) L* 06/10/16 05:15 MPV 8.4 fl (7.5-11.1) 06/10/16 05:15 CMP Sodium 141 mmol/L (136-145) 06/10/16 05:15 Potassium 3.5 mmol/L (3.5-5.1) 06/10/16 05:15 Chloride 106 mmol/L (98-107) 06/10/16 05:15 Carbon Dioxide 27 mmol/L (21-32) 06/10/16 05:15 Anion Gap 8 (8-16) 06/10/16 05:15 BUN 22 mg/dL (7-18) H 06/10/16 05:15 Creatinine 0.5 mg/dL (0.55-1.02) L 06/10/16 05:15 Creat Clearance w eGFR > 60 (>60) 06/10/16 05:15 Random Glucose 111 mg/dL (74-106) H 06/10/16 05:15 Calcium 7.6 mg/dL (8.5-10.1) L 06/10/16 05:15 Total Bilirubin 1.3 mg/dL (0.2-1.0) H D 06/10/16 05:15 AST 36 U/L (15-37) 06/10/16 05:15 ALT 78 U/L (12-78) 06/10/16 05:15 Alkaline Phosphatase 121 U/L (45-117) H 06/10/16 05:15 Total Protein 5.7 g/dl (6.4-8.2) L 06/10/16 05:15 Albumin 1.8 g/dl (3.4-5.0) L 06/10/16 05:15 CARDIAC ENZYMES Creatine Kinase 66 IU/L (26-192) 06/06/16 20:00 Troponin I < 0.02 ng/ml (0.00-0.05) 06/06/16 20:00 Current Medications Generic Name Dose Route Start Last Admin Trade Name Freq PRN Reason Stop Dose Admin Acetaminophen 650 mg 06/07/16 02:16 06/10/16 15:01 Tylenol - PO 650 mg Q6H PRN Administration FEVER OR PAIN Dronabinol 2.5 mg 06/10/16 08:00 06/10/16 17:40 Marinol - PO 2.5 mg BID@0800,1700 OPAL Administration Meropenem 1 gm/ Dextrose 100 mls @ 200 mls/hr 06/07/16 18:00 06/10/16 17:40 IVPB 200 mls/hr Q8H-IV OPAL Administration Protocol Pantoprazole Sodium 100 mls @ 200 mls/hr 06/09/16 12:30 06/10/16 09:46 Protonix 40mg Ivpb (Pre-Docked) IVPB 200 mls/hr DAILY OPAL Administration Sodium Chloride 1,000 mls @ 50 mls/hr 06/10/16 10:51 06/10/16 10:57 Normal Saline - IV 50 mls/hr ASDIR OPAL Administration Morphine Sulfate 1 mg 06/09/16 04:22 06/10/16 17:51 Morphine Injection - IVPUSH 1 mg Q4H PRN Administration PAIN Ondansetron HCl 4 mg 06/07/16 02:16 06/08/16 20:50 Zofran Injection IVPB 4 mg Q6H PRN Administration NAUSEA Home Medications Medication Instructions Recorded Calcium Carbonate/Vitamin D3 1 each PO BID 06/06/16 [Calcium 600 + Vit D 200 Tablet] Gabapentin [Neurontin -] 100 mg PO TID 06/06/16 Gluc Schmitz/Chondro Schmitz A/Vit C/Mn 1 each PO DAILY 06/06/16 [Glucosamine 1,500 Complex Cp] Montelukast Na [Singulair -] 10 mg PO DAILY 06/06/16 Multivitamin with Minerals [Icaps 1 each PO DAILY 06/06/16 Plus] Omeprazole 20 mg PO DAILY 06/06/16 Valacyclovir HCl [Valtrex -] 500 mg PO BID 06/06/16 Alendronate Na [Fosamax] 70 mg PO Q7D 06/07/16 Biotin 10,000 mcg PO DAILY 06/07/16 Lactobacillus Acidophilus 1 each PO DAILY 06/07/16 [Acidophilus] Magnesium Oxide [Magnesium] 500 mg PO DAILY 06/07/16 Selenium 200 mcg PO DAILY 06/07/16 Vitamin B Complex/Minerals [Sm 1 each PO DAILY 06/07/16 Stress Formula+Zinc Tablet] Zinc 50 mg PO DAILY 06/07/16 CT abd showed R hydronephrosis and ureter with no stone . will obtain post void bladder scan as bladder was distended on CT scan . Further w/u is needed if no retention ASSESSMENT AND PLAN: 75 y/o pleasant unfortunate lady with h/o Waldenstrome lymphoma, pancytopenia and recurrent transfusions , h/o typhlitis , PNAs, who presented with fever . She was found to be in septic shock and bacteremic # S/p Spetic shock . due to Gram neg. rods bacteremia , on Merepenem IV continue , repeat blood cx neg to date. BP is doing better SBP in 90s ( nl for her ) # Acute Pancytopenia due to chemo therapy ( last received Daratumunab 2 weeks ago) . has Abs C . Getting PRBCs Cneg. # RADHAMES : probably due to sepsis and volume depletion . Cr improved with IVF Code status :DNR/DNI Waiting for Bed acceptance to transfer to [place] . Bed is pending
[2016-06-10 21:35] LABS: BASOPHIL 0.2 % (0-2.0); EOSINOPHIL 0.1 % (0-4.5); MCH 27.4 pg (25.7-33.7); MCHC 34.2 g/dl (32.0-36.0); MEAN CELL VOLUME 80.1 fl (80-96); MEAN PLT VOLUME 8.7 fl (7.5-11.1); NEUTROPHILS 10.2 % (42.8-82.8); WHITE BLOOD COUNT 0.5 K/mm3 (4.0-10.0)
[2016-06-10 21:43] LABS: PLATELET COUNT 15 K/MM3 (134-434)
[2016-06-11] MEDS: morphine CARPU-JECT 2 MG/1 ML DISP.SYRIN IVPUSH PRN ×4 (01:10→18:32)
[2016-06-11] MEDS: MEROPENEM 1 GM in DEXTROSE 5%-WATER - 100 ML IVPB SCH ×3 (01:10→17:55)
[2016-06-11 05:57] LABS: MCH 27.6 pg (25.7-33.7); MCHC 34.9 g/dl (32.0-36.0); MEAN CELL VOLUME 79.1 fl (80-96); MEAN PLT VOLUME 8.8 fl (7.5-11.1); RDW 17.7 % (11.6-15.6)
[2016-06-11 06:18] LABS: INR 1.61 (0.82-1.09); PROTHROMBIN TIME (PATIENT) 17.9 SEC (9.98-11.88)
[2016-06-11 06:20] LABS: ACTIVATED PTT 28.8 SECONDS (26.9-34.4); PLATELET COUNT 13 K/MM3 (134-434); WHITE BLOOD COUNT 0.5 K/mm3 (4.0-10.0)
[2016-06-11 06:23] LABS: ALBUMIN 1.7 g/dl (3.4-5.0); ANION GAP 11 (8-16); BILIRUBIN,TOTAL 1.1 mg/dL (0.2-1.0); CO2 25 mmol/L (21-32); CREATININE 0.5 mg/dL (0.55-1.02); MAGNESIUM 1.9 mg/dL (1.8-2.4); TOT PROT 5.5 g/dl (6.4-8.2)
[2016-06-11 06:24] LABS: ALK PHOS 158 U/L (45-117)
[2016-06-11 06:25] LABS: CALCIUM 7.1 mg/dL (8.5-10.1); PHOSPHOROUS 1.6 mg/dL (2.5-4.9); SGOT/AST 72 U/L (15-37); SGPT/ALT 178 U/L (12-78)
[2016-06-11 07:04] LABS: GLUCOSE,RANDOM 114 mg/dL (74-106)
[2016-06-11] MEDS: DRONABINOL 2.5 MG CAPSULE PO SCH ×2 (07:53→17:55)
[2016-06-11] MEDS ORDERED: PT OWN MED DRAWER 7, Y5N ONE ×2 (08:54→16:43)
[2016-06-11] MEDS: PANTOPRAZOLE SODIUM 100 ML IVPB SCH (09:31)
[2016-06-11 11:56] LABS: PLATELET ESTIMATE MARKEDLY DECREASED (NORMAL)
--- NOTE | 2016-06-11 12:11 | PN ---
Physical Exam: SUBJECTIVE: Patient seen and examined at bedside in ICU. Afebrile overnight and states she feels well. Appetite has improved and she ate solid food last night for first time. Still refuses to consider diagnostic testing or treatment for cholecystitis. Still wants to be transferred to [facility] when bed is available. Wuld like to sit out of bed in chair. OBJECTIVE: Vital Signs Period Temp Pulse Resp BP Sys/Hilton Pulse Ox Last 24 Hr 97.8 F-102.4 F 90-110 20-28 86-116/48-69 96-96 GENERAL: The patient is awake, alert, and fully oriented. Generalised malaise but in no acute distress. HEENT: Atraumatic, EOMI, PERRLA, No lymphadenopathy noted, moist membranes LUNGS: CTA bilaterally HEART: RRR, S1S2 ABDOMEN: Soft, nontender, nondistended EXTREMITIES: 2+ pulses, warm, well-perfused, no edema. Some bruising/petechiae noted on lower extremity. NEUROLOGICAL: Cranial nerves II through XII grossly intact. Normal speech, gait not observed. PSYCH: Normal mood, normal affect. Laboratory Results - last 24 hr 06/08/16 06/10/16 06/10/16 10:20 11:40 21:00 WBC 0.5 L RBC 2.99 L Hgb 8.2 L Hct 23.9 L MCV 80.1 MCHC 34.2 RDW 18.0 H Plt Count 15 L* MPV 8.7 Neutrophils % 10.2 L D Lymphocytes % 88.1 H Monocytes % 1.4 L Eosinophils % 0.1 D Basophils % 0.2 Differential Comment Platelet Estimate INR PTT (Actin FS) Sodium Potassium Chloride Carbon Dioxide Anion Gap BUN Creatinine Creat Clearance w eGFR Random Glucose Calcium Phosphorus Magnesium Total Bilirubin AST ALT Alkaline Phosphatase Total Protein Albumin Blood Type O POSITIVE Antibody Screen Positive H Antibody Identification Not Reportable Antigen Identification Y Crossmatch See Detail See Detail 06/11/16 06/11/16 06/11/16 05:00 05:00 05:00 WBC 0.5 L RBC 2.95 L Hgb 8.1 L Hct 23.3 L MCV 79.1 L MCHC 34.9 RDW 17.7 H Plt Count 13 L* MPV 8.8 Neutrophils % 8.0 L D Lymphocytes % 90.0 H Monocytes % 2.0 L Eosinophils % Basophils % Differential Comment Manual diff done Platelet Estimate Markedly decreased INR 1.61 H PTT (Actin FS) 28.8 D Sodium 135 L Potassium 3.4 L Chloride 99 Carbon Dioxide 25 Anion Gap 11 BUN 16 D Creatinine 0.5 L Creat Clearance w eGFR > 60 Random Glucose 114 H Calcium 7.1 L Phosphorus 1.6 L D Magnesium 1.9 Total Bilirubin 1.1 H AST 72 H D ALT 178 H D Alkaline Phosphatase 158 H D Total Protein 5.5 L Albumin 1.7 L Blood Type Antibody Screen Antibody Identification Antigen Identification Crossmatch Active Medications Generic Name Dose Route Start Last Admin Trade Name Freq PRN Reason Stop Dose Admin Acetaminophen 650 mg 06/07/16 02:16 06/10/16 15:01 Tylenol - PO 650 mg Q6H PRN Administration FEVER OR PAIN Dronabinol 2.5 mg 06/10/16 08:00 06/11/16 07:53 Marinol - PO 2.5 mg BID@0800,1700 OPAL Administration Meropenem 1 gm/ Dextrose 100 mls @ 200 mls/hr 06/07/16 18:00 06/11/16 09:02 IVPB 200 mls/hr Q8H-IV OPAL Administration Protocol Pantoprazole Sodium 100 mls @ 200 mls/hr 06/09/16 12:30 06/11/16 09:31 Protonix 40mg Ivpb (Pre-Docked) IVPB 200 mls/hr DAILY OPAL Administration Sodium Chloride 1,000 mls @ 50 mls/hr 06/10/16 10:51 06/10/16 10:57 Normal Saline - IV 50 mls/hr ASDIR OPAL Administration Potassium Phosphate 25 mm/ 258.3333 mls @ 62.5 mls/hr 06/11/16 12:08 Sodium Chloride IVPB 06/11/16 16:15 ONCE ONE Morphine Sulfate 1 mg 06/09/16 04:22 06/11/16 08:59 Morphine Injection - IVPUSH 1 mg Q4H PRN Administration PAIN Ondansetron HCl 4 mg 06/07/16 02:16 06/08/16 20:50 Zofran Injection IVPB 4 mg Q6H PRN Administration NAUSEA ASSESSMENT/PLAN: 75yo female with PMH of Waldenstrom's macroglobulinemia, pancytopenia who presented with malaise & fevers to 105 x 2 days. Reports epistaxis (clots) as well. Awaiting transfer to [facility] pending bed placement. #Neutropenic fever; gram (-) bacteremia, lactose fermenting rods -continue Meropenem, as per ID -stable BP without Dopamine -plan is to transfer patient back to [facility], pending bed availability -Morphine pain management, Marinol for appetite #Gallstones, dilated CBD -explained importance of HIDA scan to patient to workup possible cholecystitis -patient states she understands, but refuses to consent to exam -urged to reconsider, states she is not interested in further testing #Pancytopenia; anemia/thrombocytopenia -secondary to recent chemotherapy administration (Daratumunab 2 weeks ago) -Hg stable at 8.1 today (8.2 yesterday evening) -ordered 1 unit of platelets -thus far, has been given 6units PRBC, 1unit FFP & 5units platelets (excluding today's orders) -following coags #Acute Kidney Injury -likely secondary to hypotension due to sepsis -Creatinine now stable 0.5 -continue IVF administration, trend labs -avoid nephrotoxic meds Prophylaxis/FEN -SCD's, PPI -NS@50, Repleted Potassium & Phosphorus, Neutropenic Diet Dispo: can monitor on floors until transfer Visit type - Emergency Visit Emergency Visit: Yes ED Registration Date: 06/07/16 Care time: The patient presented to the Emergency Department on the above date and was hospitalized for further evaluation of their emergent condition. - New Patient This patient is new to me today: No - Critical Care Critical Care patient: Yes Total Critical Care Time (in minutes): 35 Critical Care Statement: The care of this patient involved high complexity decision making to prevent further life threatening deterioration of the patient 's condition and/or to evalute & treat vital organ system(s) failure or risk of failure.
[2016-06-11] MEDS: SODIUM CHLORIDE 1,000 ML IV SCH (12:14)
--- NOTE | 2016-06-11 12:27 | PN ---
Teaching Attending Note Name of Resident: Wade Alexander ATTENDING PHYSICIAN STATEMENT I saw and evaluated the patient. I reviewed the resident's note and discussed the case with the resident. I agree with the resident's findings and plan as documented. SUBJECTIVE: Pt seen and examined in the ICU. Feeling better. Remains off pressors. No fevers or chills. Some shortness of breath this AM. Denies abdominal pain, mild nausea persists. OBJECTIVE: Last Vital Signs Temp Pulse Resp BP Pulse Ox 98.2 F 102 H 23 105/60 96 06/11/16 10:00 06/11/16 12:00 06/11/16 12:00 06/11/16 12:00 06/11/16 11:42 Intake & Output 06/08/16 06/09/16 06/10/16 06/11/16 23:59 23:59 23:59 23:59 Intake Total 4367.5 3696.4 4174 1870 Output Total 500 Balance 3867.5 3696.4 4174 1870 Weight 138 lb 139 lb 4.8 oz 142 lb 6.698 oz 146 lb 5 oz Gen: NAD at rest Heart: RRR Lung: decreased breath sounds at the bases Abd: soft, nontender Ext: no edema CBC, BMP 06/11/16 05:00 06/11/16 05:00 Active Medications Acetaminophen (Tylenol -) 650 mg PO Q6H PRN PRN Reason: FEVER OR PAIN Last Admin: 06/10/16 15:01 Dose: 650 mg Dronabinol (Marinol -) 2.5 mg PO BID@0800,1700 [facility] Last Admin: 06/11/16 07:53 Dose: 2.5 mg Meropenem 1 gm/ Dextrose 100 mls @ 200 mls/hr IVPB Q8H-IV OPAL PRN Reason: Protocol Last Admin: 06/11/16 09:02 Dose: 200 mls/hr Pantoprazole Sodium (Protonix 40mg Ivpb (Pre-Docked)) 100 mls @ 200 mls/hr IVPB DAILY [facility] Last Admin: 06/11/16 09:31 Dose: 200 mls/hr Sodium Chloride (Normal Saline -) 1,000 mls @ 50 mls/hr IV ASDIR [facility] Last Admin: 06/11/16 12:14 Dose: Not Given Potassium Phosphate 25 mm/ (Sodium Chloride) 258.3333 mls @ 62.5 mls/hr IVPB ONCE ONE Stop: 06/11/16 16:37 Morphine Sulfate (Morphine Injection -) 1 mg IVPUSH Q4H PRN PRN Reason: PAIN Last Admin: 06/11/16 08:59 Dose: 1 mg Ondansetron HCl (Zofran Injection) 4 mg IVPB Q6H PRN PRN Reason: NAUSEA Last Admin: 06/08/16 20:50 Dose: 4 mg ASSESSMENT AND PLAN: Neutropenic Septic Shock E Coli Bacteremia Waldenstrom's Macroglobulinemia Severe Anemia Severe Thrombocytopenia Epistaxis r/o Acute Cholecystitis - continue antibiotics - f/u cultures - monitor off dopamine gtt as long as SBP >80 - transfuse PRBC, platelets - monitor CBC, coags - offered HIDA scan to r/o biliary obstruction but pt adamantly refusing further procedures/diagnostic testing - O2 to keep spO2 >90% - neutropenic precautions - transfer to [facility] when bed available - DVT prophylaxis - can monitor on floor Problem List - Problems (1) Fever Code(s): R50.9 - FEVER, UNSPECIFIED (2) Neutropenic fever Code(s): D70.9 - NEUTROPENIA, UNSPECIFIED R50.81 - FEVER PRESENTING WITH CONDITIONS CLASSIFIED ELSEWHERE (3) Pancytopenia Code(s): D61.818 - OTHER PANCYTOPENIA (4) Waldenstrom's disease Code(s): C88.0 - WALDENSTROM MACROGLOBULINEMIA (5) Thrombocytopenia Code(s): D69.6 - THROMBOCYTOPENIA, UNSPECIFIED (6) Anemia Code(s): D64.9 - ANEMIA, UNSPECIFIED (7) Sepsis Code(s): A41.9 - SEPSIS, UNSPECIFIED ORGANISM (8) Shock Code(s): R57.9 - SHOCK, UNSPECIFIED (9) Septic shock Code(s): A41.9 - SEPSIS, UNSPECIFIED ORGANISM R65.21 - SEVERE SEPSIS WITH SEPTIC SHOCK (10) Gram-negative bacteremia Code(s): R78.81 - BACTEREMIA
[2016-06-11] MEDS ORDERED: POTASSIUM PHOSPHATE 25 MM in SODIUM CHLORIDE 250 ML IVPB ONE (12:30)
[2016-06-11] MEDS: ACETAMINOPHEN 325 MG TABLET (FP) PO PRN ×2 (14:22→21:52)
--- NOTE | 2016-06-11 17:55 | PN ---
Physical Exam: SUBJECTIVE: Patient seen and examined. family discussion regarding GOC, patient has opted for [place]. OBJECTIVE: Vital Signs Period Temp Pulse Resp BP Sys/Hilton Pulse Ox Last 24 Hr 97.8 F-100.8 F 90-109 20-24 86-105/48-63 96-96 GENERAL: The patient is awake, alert, and fully oriented, in no acute distress. LUNGS: quiet at bases. HEART: Regular rate and rhythm, S1, S2 without murmur, rub or gallop. ABDOMEN: Soft, nontender, nondistended, normoactive bowel sounds EXTREMITIES: 2+ pulses, warm, well-perfused, no edema. NEUROLOGICAL: Normal speech. Laboratory Results - last 24 hr 06/10/16 06/10/16 06/11/16 11:40 21:00 05:00 WBC 0.5 L 0.5 L RBC 2.99 L 2.95 L Hgb 8.2 L 8.1 L Hct 23.9 L 23.3 L MCV 80.1 79.1 L MCHC 34.2 34.9 RDW 18.0 H 17.7 H Plt Count 15 L* 13 L* MPV 8.7 8.8 Neutrophils % 10.2 L D 8.0 L D Lymphocytes % 88.1 H 90.0 H Monocytes % 1.4 L 2.0 L Eosinophils % 0.1 D Basophils % 0.2 Differential Comment Manual diff done Platelet Estimate Markedly decreased INR PTT (Actin FS) Sodium Potassium Chloride Carbon Dioxide Anion Gap BUN Creatinine Creat Clearance w eGFR Random Glucose Calcium Phosphorus Magnesium Total Bilirubin AST ALT Alkaline Phosphatase Total Protein Albumin Crossmatch See Detail 06/11/16 06/11/16 05:00 05:00 WBC RBC Hgb Hct MCV MCHC RDW Plt Count MPV Neutrophils % Lymphocytes % Monocytes % Eosinophils % Basophils % Differential Comment Platelet Estimate INR 1.61 H PTT (Actin FS) 28.8 D Sodium 135 L Potassium 3.4 L Chloride 99 Carbon Dioxide 25 Anion Gap 11 BUN 16 D Creatinine 0.5 L Creat Clearance w eGFR > 60 Random Glucose 114 H Calcium 7.1 L Phosphorus 1.6 L D Magnesium 1.9 Total Bilirubin 1.1 H AST 72 H D ALT 178 H D Alkaline Phosphatase 158 H D Total Protein 5.5 L Albumin 1.7 L Crossmatch Active Medications Generic Name Dose Route Start Last Admin Trade Name Freq PRN Reason Stop Dose Admin Acetaminophen 650 mg 06/07/16 02:16 06/11/16 14:22 Tylenol - PO 650 mg Q6H PRN Administration FEVER OR PAIN Dronabinol 2.5 mg 06/10/16 08:00 06/11/16 07:53 Marinol - PO 2.5 mg BID@0800,1700 OPAL Administration Meropenem 1 gm/ Dextrose 100 mls @ 200 mls/hr 06/07/16 18:00 06/11/16 09:02 IVPB 200 mls/hr Q8H-IV OPAL Administration Protocol Pantoprazole Sodium 100 mls @ 200 mls/hr 06/09/16 12:30 06/11/16 09:31 Protonix 40mg Ivpb (Pre-Docked) IVPB 200 mls/hr DAILY OPAL Administration Sodium Chloride 1,000 mls @ 50 mls/hr 06/10/16 10:51 06/11/16 12:14 Normal Saline - IV Not Given ASDIR OPAL Morphine Sulfate 1 mg 06/09/16 04:22 06/11/16 12:51 Morphine Injection - IVPUSH 1 mg Q4H PRN Administration PAIN Ondansetron HCl 4 mg 06/07/16 02:16 06/08/16 20:50 Zofran Injection IVPB 4 mg Q6H PRN Administration NAUSEA ASSESSMENT/PLAN: 75 y/o woman with h/o Waldenstrom macroglobuniema undergoing chemo with Daratumunab (last dose 2 weeks ago) pancytopenic and recurrent transfusions , h/ o typhlitis, PNAs, who presented with fever, found to be septic shock with pansensitive e.coli bactermia. - duplex negative for DVT #Palliative Care involved - GOC discussed with family. - will provide support #septic shock with e.coli bacteremia and fevers on antibiotics. - ultrasound shows concern for cholecystitis, patient declined interventions, discussed with ICU team, surgical team(Dr. Barrios) she adamently declined further interventions and imaging. - The cholecystitis could be possible source of fevers - continue Meropenem - day 5 #Hypotension - improved. - off dopamine - IVF @50mls/hr #Pancytopenia; anemia/thrombocytopenia - improved h/h stable - likely due to recent chemotherapy administration (Daratumunab 2 weeks ago) and disease process from Waldenstrom's macroglobuniema - s/p 5 units prbc's, 2 units platelets - unlikely to be DIC, low fibrinogen degradation products with high fibrinogen levels #dvt - scd's #Diet - sodium controlled diet with ensure TID Visit type - Emergency Visit Emergency Visit: No - New Patient This patient is new to me today: No - Critical Care Critical Care patient: Yes Total Critical Care Time (in minutes): 45 Critical Care Statement: The care of this patient involved high complexity decision making to prevent further life threatening deterioration of the patient 's condition and/or to evalute & treat vital organ system(s) failure or risk of failure.
--- NOTE | 2016-06-11 18:18 | PN ---
Progress Note (short form) - Note Progress Note: Patient seen and examined Feels better. Last Vital Signs Temp Pulse Resp BP Pulse Ox 98.2 F 90 24 87/57 96 06/10/16 18:00 06/10/16 18:00 06/10/16 18:00 06/10/16 18:00 06/10/16 15:32 HEENT: EDD, EOM Intact Oropharynx: No thrush, No mucositis Cor: RSR, No murmurs, No gallops Lungs: decreased at bases Abd: Soft, Normal bowel sounds, No organomegaly Ext:No significant edema Abnormal Lab Results 06/06/16 06/07/16 06/08/16 20:00 00:06 10:20 WBC RBC Hgb Hct RDW Plt Count Neutrophils % Lymphocytes % Monocytes % BUN Creatinine Random Glucose Calcium Phosphorus Total Bilirubin Alkaline Phosphatase Total Protein Albumin Antibody Screen Positive H Crossmatch See Detail See Detail See Detail 06/09/16 06/10/16 06/10/16 17:00 05:15 05:15 WBC 0.5 L RBC 2.72 L Hgb 7.6 L D Hct 22.1 L RDW 17.3 H Plt Count 13 L* Neutrophils % 6.0 L D 3.0 L Lymphocytes % 94.0 H 95.0 H Monocytes % 2.0 L BUN 22 H Creatinine 0.5 L Random Glucose 111 H Calcium 7.6 L Phosphorus 2.2 L D Total Bilirubin 1.3 H D Alkaline Phosphatase 121 H Total Protein 5.7 L Albumin 1.8 L Antibody Screen Crossmatch 06/10/16 11:40 WBC RBC Hgb Hct RDW Plt Count Neutrophils % Lymphocytes % Monocytes % BUN Creatinine Random Glucose Calcium Phosphorus Total Bilirubin Alkaline Phosphatase Total Protein Albumin Antibody Screen Positive H Crossmatch See Detail Current Medications Acetaminophen (Tylenol -) 650 mg PO Q6H PRN PRN Reason: FEVER OR PAIN Last Admin: 06/10/16 15:01 Dose: 650 mg Dronabinol (Marinol -) 2.5 mg PO BID@0800,1700 OPAL Last Admin: 06/10/16 17:40 Dose: 2.5 mg Meropenem 1 gm/ Dextrose 100 mls @ 200 mls/hr IVPB Q8H-IV OPAL PRN Reason: Protocol Last Admin: 06/10/16 17:40 Dose: 200 mls/hr Pantoprazole Sodium (Protonix 40mg Ivpb (Pre-Docked)) 100 mls @ 200 mls/hr IVPB DAILY OPAL Last Admin: 06/10/16 09:46 Dose: 200 mls/hr Sodium Chloride (Normal Saline -) 1,000 mls @ 50 mls/hr IV ASDIR OPAL Last Admin: 06/10/16 10:57 Dose: 50 mls/hr Morphine Sulfate (Morphine Injection -) 1 mg IVPUSH Q4H PRN PRN Reason: PAIN Last Admin: 06/10/16 17:51 Dose: 1 mg Ondansetron HCl (Zofran Injection) 4 mg IVPB Q6H PRN PRN Reason: NAUSEA Last Admin: 06/08/16 20:50 Dose: 4 mg A/P 75 y/o patient s/p 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 Poor performance status Daratumumab interfering with type and cross match. blood bank was able to procure type and screen from [facility] . HAs anti C PAtient has been transfusion dependent No obvious bleeding Getting PRBCs Cneg. On antibiotics ? Bsymptoms refusing invasive procedures/diagnostic imaging regarding cholecystitis
--- NOTE | 2016-06-11 18:57 | PN ---
Progress Note, Physician History of Present Illness: patient feeling better had a spike in temp cx send patient is thinking of pallative care - Current Medication List Current Medications: Active Medications Acetaminophen (Tylenol -) 650 mg PO Q6H PRN PRN Reason: FEVER OR PAIN Last Admin: 06/11/16 14:22 Dose: 650 mg Dronabinol (Marinol -) 2.5 mg PO BID@0800,1700 [facility] Last Admin: 06/11/16 17:55 Dose: 2.5 mg Meropenem 1 gm/ Dextrose 100 mls @ 200 mls/hr IVPB Q8H-IV OPAL PRN Reason: Protocol Last Admin: 06/11/16 17:55 Dose: 200 mls/hr Pantoprazole Sodium (Protonix 40mg Ivpb (Pre-Docked)) 100 mls @ 200 mls/hr IVPB DAILY [facility] Last Admin: 06/11/16 09:31 Dose: 200 mls/hr Sodium Chloride (Normal Saline -) 1,000 mls @ 50 mls/hr IV ASDIR [facility] Last Admin: 06/11/16 12:14 Dose: Not Given Morphine Sulfate (Morphine Injection -) 1 mg IVPUSH Q4H PRN PRN Reason: PAIN Last Admin: 06/11/16 18:32 Dose: 1 mg Ondansetron HCl (Zofran Injection) 4 mg IVPB Q6H PRN PRN Reason: NAUSEA Last Admin: 06/08/16 20:50 Dose: 4 mg - Objective Vital Signs: Vital Signs Temperature 98.4 F 06/11/16 18:07 Pulse Rate 102 H 06/11/16 18:07 Respiratory Rate 24 06/11/16 18:07 Blood Pressure 98/59 06/11/16 18:07 O2 Sat by Pulse Oximetry (%) 96 06/11/16 16:50 Constitutional: Yes: No Distress, Calm Cardiovascular: Yes: Regular Rate and Rhythm Respiratory: Yes: Regular, Poor Air Entry Gastrointestinal: Yes: Normal Bowel Sounds, Soft Musculoskeletal: Yes: Other Extremities: Yes: WNL Neurological: Yes: Alert, Oriented Psychiatric: Yes: Alert, Oriented Labs: CBC, BMP 06/11/16 05:00 06/11/16 05:00 INR, PTT INR 1.61 (0.82-1.09) H 06/11/16 05:00 Fibrinogen 651.0 mg/dL (238-498) H 06/08/16 20:45 Assessment/Plan Neutropenic fever Pancytopenic Waldernstrom's lymphoma fever bacteremia gram negative dehydration Problem List - Problems (1) Fever Code(s): R50.9 - FEVER, UNSPECIFIED (2) Neutropenic fever Code(s): D70.9 - NEUTROPENIA, UNSPECIFIED R50.81 - FEVER PRESENTING WITH CONDITIONS CLASSIFIED ELSEWHERE (3) Pancytopenia Code(s): D61.818 - OTHER PANCYTOPENIA (4) Waldenstrom's disease Code(s): C88.0 - WALDENSTROM MACROGLOBULINEMIA (5) Thrombocytopenia Code(s): D69.6 - THROMBOCYTOPENIA, UNSPECIFIED (6) Anemia Code(s): D64.9 - ANEMIA, UNSPECIFIED (7) Sepsis Code(s): A41.9 - SEPSIS, UNSPECIFIED ORGANISM (8) Shock Code(s): R57.9 - SHOCK, UNSPECIFIED (9) Septic shock Code(s): A41.9 - SEPSIS, UNSPECIFIED ORGANISM R65.21 - SEVERE SEPSIS WITH SEPTIC SHOCK (10) Gram-negative bacteremia Code(s): R78.81 - BACTEREMIA plan continue abx await for repeat cx report patient is going to make decision on hospice close monitoring supportive measures cc time 40 min
--- NOTE | 2016-06-11 20:13 | PN ---
Teaching Attending Note Name of Resident: Hernandez Dumont ATTENDING PHYSICIAN STATEMENT I saw and evaluated the patient. I reviewed the resident's note and discussed the case with the resident. I agree with the resident's findings and plan as documented. SUBJECTIVE: Patient is comfortable, has no new complains.No fever or chills. OBJECTIVE: Vital Signs Temperature 98.4 F 06/11/16 18:07 Pulse Rate 102 H 06/11/16 18:07 Respiratory Rate 24 06/11/16 18:07 Blood Pressure 98/59 06/11/16 18:07 O2 Sat by Pulse Oximetry (%) 96 06/11/16 16:50 GENERAL: Awake, alert, and fully oriented, in no acute distress. lying in bed comfortably. HEAD: Normal with no signs of trauma. EYES: Pupils equal, round and reactive to light, extraocular movements intact, sclera anicteric, conjunctiva clear. EARS, NOSE, THROAT: (+) Nose bruise. Ears normal, oropharynx clear without exudates. Moist mucous membranes. NECK: Normal range of motion, supple without lymphadenopathy, JVD, or masses. LUNGS: Breath sounds equal, clear to auscultation bilaterally. No wheezes, and no crackles. No accessory muscle use. HEART: Regular rate and rhythm, normal S1 and S2 without murmur, rub or gallop. ABDOMEN: Soft, nontender, not distended, normoactive bowel sounds, no guarding, no rebound, no masses appreciated . MUSCULOSKELETAL: Normal range of motion at all joints. No bony deformities or tenderness. No CVA tenderness. EXTREMITIES: 2+ pulses, warm, well-perfused. No calf tenderness. No peripheral edema. NEUROLOGICAL: Cranial nerves II-XII intact. Normal speech. PSYCHIATRIC: Cooperative. Good eye contact. Appropriate mood and affect. SKIN: Warm, dry, normal turgor, no rashes or lesions noted. CBCD WBC 0.5 K/mm3 (4.0-10.0) L 06/11/16 05:00 RBC 2.95 M/mm3 (3.60-5.2) L 06/11/16 05:00 Hgb 8.1 GM/dL (10.7-15.3) L 06/11/16 05:00 Hct 23.3 % (32.4-45.2) L 06/11/16 05:00 MCV 79.1 fl (80-96) L 06/11/16 05:00 MCHC 34.9 g/dl (32.0-36.0) 06/11/16 05:00 RDW 17.7 % (11.6-15.6) H 06/11/16 05:00 Plt Count 13 K/MM3 (134-434) L* 06/11/16 05:00 MPV 8.8 fl (7.5-11.1) 06/11/16 05:00 CMP Sodium 135 mmol/L (136-145) L 06/11/16 05:00 Potassium 3.4 mmol/L (3.5-5.1) L 06/11/16 05:00 Chloride 99 mmol/L (98-107) 06/11/16 05:00 Carbon Dioxide 25 mmol/L (21-32) 06/11/16 05:00 Anion Gap 11 (8-16) 06/11/16 05:00 BUN 16 mg/dL (7-18) D 06/11/16 05:00 Creatinine 0.5 mg/dL (0.55-1.02) L 06/11/16 05:00 Creat Clearance w eGFR > 60 (>60) 06/11/16 05:00 Random Glucose 114 mg/dL (74-106) H 06/11/16 05:00 Calcium 7.1 mg/dL (8.5-10.1) L 06/11/16 05:00 Total Bilirubin 1.1 mg/dL (0.2-1.0) H 06/11/16 05:00 AST 72 U/L (15-37) H D 06/11/16 05:00 ALT 178 U/L (12-78) H D 06/11/16 05:00 Alkaline Phosphatase 158 U/L (45-117) H D 06/11/16 05:00 Total Protein 5.5 g/dl (6.4-8.2) L 06/11/16 05:00 Albumin 1.7 g/dl (3.4-5.0) L 06/11/16 05:00 CARDIAC ENZYMES Creatine Kinase 66 IU/L (26-192) 06/06/16 20:00 Troponin I < 0.02 ng/ml (0.00-0.05) 06/06/16 20:00 Current Medications Generic Name Dose Route Start Last Admin Trade Name José PRN Reason Stop Dose Admin Acetaminophen 650 mg 06/07/16 02:16 06/11/16 14:22 Tylenol - PO 650 mg Q6H PRN Administration FEVER OR PAIN Dronabinol 2.5 mg 06/10/16 08:00 06/11/16 17:55 Marinol - PO 2.5 mg BID@0800,1700 OPAL Administration Meropenem 1 gm/ Dextrose 100 mls @ 200 mls/hr 06/07/16 18:00 06/11/16 17:55 IVPB 200 mls/hr Q8H-IV OPAL Administration Protocol Pantoprazole Sodium 100 mls @ 200 mls/hr 06/09/16 12:30 06/11/16 09:31 Protonix 40mg Ivpb (Pre-Docked) IVPB 200 mls/hr DAILY OPAL Administration Sodium Chloride 1,000 mls @ 50 mls/hr 06/10/16 10:51 06/11/16 12:14 Normal Saline - IV Not Given ASDIR OPAL Morphine Sulfate 1 mg 06/09/16 04:22 06/11/16 18:32 Morphine Injection - IVPUSH 1 mg Q4H PRN Administration PAIN Ondansetron HCl 4 mg 06/07/16 02:16 06/08/16 20:50 Zofran Injection IVPB 4 mg Q6H PRN Administration NAUSEA Home Medications Medication Instructions Recorded Calcium Carbonate/Vitamin D3 1 each PO BID 06/06/16 [Calcium 600 + Vit D 200 Tablet] Gabapentin [Neurontin -] 100 mg PO TID 06/06/16 Gluc Schmitz/Chondro Schmitz A/Vit C/Mn 1 each PO DAILY 06/06/16 [Glucosamine 1,500 Complex Cp] Montelukast Na [Singulair -] 10 mg PO DAILY 06/06/16 Multivitamin with Minerals [Icaps 1 each PO DAILY 06/06/16 Plus] Omeprazole 20 mg PO DAILY 06/06/16 Valacyclovir HCl [Valtrex -] 500 mg PO BID 06/06/16 Alendronate Na [Fosamax] 70 mg PO Q7D 06/07/16 Biotin 10,000 mcg PO DAILY 06/07/16 Lactobacillus Acidophilus 1 each PO DAILY 06/07/16 [Acidophilus] Magnesium Oxide [Magnesium] 500 mg PO DAILY 06/07/16 Selenium 200 mcg PO DAILY 06/07/16 Vitamin B Complex/Minerals [Sm 1 each PO DAILY 06/07/16 Stress Formula+Zinc Tablet] Zinc 50 mg PO DAILY 06/07/16 Microbiology 06/08/16 05:55 Blood - Peripheral Venous Blood Culture - Final NO GROWTH AFTER 5 DAYS INCUBATION 06/08/16 05:45 Blood - Peripheral Venous Blood Culture - Final NO GROWTH AFTER 5 DAYS INCUBATION 06/11/16 15:30 Blood - Peripheral Venous Blood Culture - Preliminary NO GROWTH OBTAINED AFTER 24 HOURS, INCUBATION TO CONTINUE FOR 4 DAYS. 06/11/16 15:30 Blood - Peripheral Venous Blood Culture - Preliminary NO GROWTH OBTAINED AFTER 24 HOURS, INCUBATION TO CONTINUE FOR 4 DAYS. 06/06/16 20:00 Blood - Peripheral Venous Blood Culture - Final Escherichia Coli 06/07/16 22:10 Nasopharyngeal Swab Respiratory Virus Panel - Preliminary 06/06/16 20:00 Blood - Peripheral Venous Blood Culture - Final Escherichia Coli 06/07/16 06:44 Urine - Urine Clean Catch Urine Culture - Final 06/07/16 22:10 Nasopharyngeal Swab Influenza Types A,B Antigen (LUISANA) - Final 06/07/16 22:10 Nasopharyngeal Swab - Final CT abd showed R hydronephrosis and ureter with no stone . will obtain post void bladder scan as bladder was distended on CT scan . Further w/u is needed if no retention ASSESSMENT AND PLAN: 75 y/o pleasant unfortunate lady with h/o Waldenstrome lymphoma, pancytopenia and recurrent transfusions , h/o typhlitis , PNAs, who presented with fever . She was found to be in septic shock and bacteremic # S/p Spetic shock . due to Gram neg. rods bacteremia , on Merepenem IV continue , repeat blood cx neg to date. BP is doing better SBP in 98 ( nl for her ) # Acute Pancytopenia due to chemo therapy ( last received Daratumunab 2 weeks ago) . has Abs C .s/p PRBCs Cneg.s/p platelets transfusion as well. Her baseline is around 13K # RADHAMES : improved s/p IVF Code status :DNR/DNI Kely; Palliative nurse discussing with the patient and the family regarding [place] Tx
[2016-06-11] MEDS ORDERED: morphine CARPU-JECT 2 MG/1 ML DISP.SYRIN IVPUSH ONE (21:40)
[2016-06-12] MEDS: MEROPENEM 1 GM in DEXTROSE 5%-WATER - 100 ML IVPB SCH ×3 (01:14→17:07)
[2016-06-12] MEDS: morphine CARPU-JECT 2 MG/1 ML DISP.SYRIN IVPUSH PRN ×5 (01:57→20:07)
[2016-06-12] MEDS: DRONABINOL 2.5 MG CAPSULE PO SCH ×2 (08:19→17:06)
[2016-06-12] MEDS ORDERED: PT OWN MED DRAWER 7, Y5N ONE ×2 (08:54→16:44)
[2016-06-12] MEDS: PANTOPRAZOLE SODIUM 100 ML IVPB SCH (09:03)
--- NOTE | 2016-06-12 10:10 | PN ---
Progress Note (short form) - Note Progress Note: Patient seen and examined Patient comfortable with decision re: [place] transfer. Last Vital Signs Temp Pulse Resp BP Pulse Ox 97.6 F 103 H 22 98/62 96 06/12/16 06:00 06/12/16 06:00 06/12/16 06:00 06/12/16 06:00 06/11/16 20:41 HEENT: EDD, EOM Intact Oropharynx: No thrush, No mucositis Neck: Supple Nodes: Without adenopathy Cor: RSR, No murmurs, No gallops Lungs: diminished breath sounds bilaterally Abd: Soft, Normal bowel sounds, No organomegaly, distended , tympanitic, non tender, ? ascites Ext:No significant edema Skin: No rashes, Integument intact, ecchymoses CBC, BMP 06/11/16 05:00 06/11/16 05:00 Current Medications Generic Name Dose Route Start Last Admin Trade Name Freq PRN Reason Stop Dose Admin Acetaminophen 650 mg 06/07/16 02:16 06/11/16 21:52 Tylenol - PO 650 mg Q6H PRN Administration FEVER OR PAIN Dronabinol 2.5 mg 06/10/16 08:00 06/12/16 08:19 Marinol - PO 2.5 mg BID@0800,1700 OPAL Administration Meropenem 1 gm/ Dextrose 100 mls @ 200 mls/hr 06/07/16 18:00 06/12/16 09:03 IVPB 200 mls/hr Q8H-IV OPAL Administration Protocol Pantoprazole Sodium 100 mls @ 200 mls/hr 06/09/16 12:30 06/12/16 09:03 Protonix 40mg Ivpb (Pre-Docked) IVPB 200 mls/hr DAILY OPAL Administration Sodium Chloride 1,000 mls @ 50 mls/hr 06/10/16 10:51 06/11/16 12:14 Normal Saline - IV Not Given ASDIR OPAL Morphine Sulfate 1 mg 06/09/16 04:22 06/12/16 09:34 Morphine Injection - IVPUSH 1 mg Q4H PRN Administration PAIN Ondansetron HCl 4 mg 06/07/16 02:16 06/08/16 20:50 Zofran Injection IVPB 4 mg Q6H PRN Administration NAUSEA Impression: End -stage Waldenstrom's Pancytopenia Palliative care Plan: Transfuse for Hct 20% or platelets 10K Comfort care.
[2016-06-12] MEDS: SODIUM CHLORIDE 1,000 ML IV SCH ×2 (12:06→21:29)
--- NOTE | 2016-06-12 12:57 | PN ---
Physical Exam: SUBJECTIVE: Patient seen and examined at bedside in ICU. Afebrile overnight and states she feels almost back to normal. Still reports some pain at site of eschar on bottom but otherwise feels well. Again refuses workup for cholecystitis. OBJECTIVE: Vital Signs Period Temp Pulse Resp BP Sys/[place] Pulse Ox Last 24 Hr 97.3 F-100.8 F 90-112 20-25 91-111/48-68 96-96 GENERAL: The patient is awake, alert, and fully oriented. Generalised malaise but in no acute distress. HEENT: Atraumatic, EOMI, PERRLA, No lymphadenopathy noted, moist membranes LUNGS: CTA bilaterally HEART: RRR, S1S2 ABDOMEN: Soft, nontender, nondistended EXTREMITIES: 2+ pulses, warm, well-perfused, no edema. Some bruising/petechiae noted on lower extremity. NEUROLOGICAL: Cranial nerves II through XII grossly intact. Normal speech, gait not observed. PSYCH: Normal mood, normal affect. Active Medications Generic Name Dose Route Start Last Admin Trade Name Freq PRN Reason Stop Dose Admin Acetaminophen 650 mg 06/07/16 02:16 06/11/16 21:52 Tylenol - PO 650 mg Q6H PRN Administration FEVER OR PAIN Dronabinol 2.5 mg 06/10/16 08:00 06/12/16 08:19 Marinol - PO 2.5 mg BID@0800,1700 OPAL Administration Meropenem 1 gm/ Dextrose 100 mls @ 200 mls/hr 06/07/16 18:00 06/12/16 09:03 IVPB 200 mls/hr Q8H-IV OPAL Administration Protocol Pantoprazole Sodium 100 mls @ 200 mls/hr 06/09/16 12:30 06/12/16 09:03 Protonix 40mg Ivpb (Pre-Docked) IVPB 200 mls/hr DAILY OPAL Administration Sodium Chloride 1,000 mls @ 50 mls/hr 06/10/16 10:51 06/12/16 12:06 Normal Saline - IV 50 mls/hr ASDIR OPAL Administration Morphine Sulfate 1 mg 06/09/16 04:22 06/12/16 09:34 Morphine Injection - IVPUSH 1 mg Q4H PRN Administration PAIN Ondansetron HCl 4 mg 06/07/16 02:16 06/08/16 20:50 Zofran Injection IVPB 4 mg Q6H PRN Administration NAUSEA ASSESSMENT/PLAN: 75yo female with PMH of Waldenstrom's macroglobulinemia, pancytopenia who presented with malaise & fevers to 105 x 2 days. Reports epistaxis (clots) as well. Awaiting transfer to [facility] pending bed placement. #Neutropenic fever; gram (-) bacteremia, lactose fermenting rods -continue Meropenem, as per ID -stable BP without Dopamine -Morphine pain management, Marinol for appetite -beds unavailable at [facility], will be transferred to [facility] once bed is available #Gallstones, dilated CBD -explained importance of HIDA scan to patient to workup possible cholecystitis -patient states she understands, but refuses to consent to exam -urged to reconsider, states she is not interested in further testing #Pancytopenia; anemia/thrombocytopenia -secondary to recent chemotherapy administration (Daratumunab 2 weeks ago) -thus far, has been given 6units PRBC, 1unit FFP & 5units platelets (excluding today's orders) #Acute Kidney Injury -likely secondary to hypotension due to sepsis -discontinued IVF as patient has very good PO intake of fluids -avoid nephrotoxic meds Prophylaxis/FEN -SCD's, PPI -PO Intake, Neutropenic Diet Dispo: can monitor on floors until transfer Visit type - Emergency Visit Emergency Visit: Yes ED Registration Date: 06/07/16 Care time: The patient presented to the Emergency Department on the above date and was hospitalized for further evaluation of their emergent condition. - New Patient This patient is new to me today: No - Critical Care Critical Care patient: Yes Total Critical Care Time (in minutes): 45 Critical Care Statement: The care of this patient involved high complexity decision making to prevent further life threatening deterioration of the patient 's condition and/or to evalute & treat vital organ system(s) failure or risk of failure.
--- NOTE | 2016-06-12 13:13 | PN ---
Teaching Attending Note Name of Resident: Wade Alexander ATTENDING PHYSICIAN STATEMENT I saw and evaluated the patient. I reviewed the resident's note and discussed the case with the resident. I agree with the resident's findings and plan as documented. SUBJECTIVE: Patient seen and examined in the ICU. Awake and alert. Reports that she is was able to tolerate some solid PO intake for the first time. Currently off pressors. No fevers or chills. Some shortness of breath this AM. OBJECTIVE: Intake & Output 06/09/16 06/10/16 06/11/16 06/12/16 23:59 23:59 23:59 23:59 Intake Total 3696.4 4174 3064 900 Balance 3696.4 4174 3064 900 Weight 139 lb 4.8 oz 142 lb 6.698 oz 146 lb 5 oz 144 lb 7 oz Last Vital Signs Temp Pulse Resp BP Pulse Ox 97.3 F L 102 H 20 100/54 96 06/12/16 11:25 06/12/16 12:00 06/12/16 12:00 06/12/16 12:00 06/12/16 09:00 Active Medications Acetaminophen (Tylenol -) 650 mg PO Q6H PRN PRN Reason: FEVER OR PAIN Last Admin: 06/11/16 21:52 Dose: 650 mg Dronabinol (Marinol -) 2.5 mg PO BID@0800,1700 OPAL Last Admin: 06/12/16 08:19 Dose: 2.5 mg Meropenem 1 gm/ Dextrose 100 mls @ 200 mls/hr IVPB Q8H-IV OPAL PRN Reason: Protocol Last Admin: 06/12/16 09:03 Dose: 200 mls/hr Pantoprazole Sodium (Protonix 40mg Ivpb (Pre-Docked)) 100 mls @ 200 mls/hr IVPB DAILY OPAL Last Admin: 06/12/16 09:03 Dose: 200 mls/hr Sodium Chloride (Normal Saline -) 1,000 mls @ 50 mls/hr IV ASDIR OPAL Last Admin: 06/12/16 12:06 Dose: 50 mls/hr Morphine Sulfate (Morphine Injection -) 1 mg IVPUSH Q4H PRN PRN Reason: PAIN Last Admin: 06/12/16 09:34 Dose: 1 mg Ondansetron HCl (Zofran Injection) 4 mg IVPB Q6H PRN PRN Reason: NAUSEA Last Admin: 06/08/16 20:50 Dose: 4 mg Gen: NAD at rest Heart: RRR Lung: decreased breath sounds at the bases Abd: soft, nontender Ext: no edema Laboratory Results - last 24 hr 06/06/16 06/08/16 06/10/16 20:00 10:20 11:40 Blood Type O POSITIVE Antibody Screen Positive H Antibody Identification Anti-c Crossmatch See Detail See Detail See Detail Problem List - Problems (1) Fever Code(s): R50.9 - FEVER, UNSPECIFIED (2) Neutropenic fever Code(s): D70.9 - NEUTROPENIA, UNSPECIFIED R50.81 - FEVER PRESENTING WITH CONDITIONS CLASSIFIED ELSEWHERE (3) Pancytopenia Code(s): D61.818 - OTHER PANCYTOPENIA (4) Waldenstrom's disease Code(s): C88.0 - WALDENSTROM MACROGLOBULINEMIA (5) Thrombocytopenia Code(s): D69.6 - THROMBOCYTOPENIA, UNSPECIFIED (6) Anemia Code(s): D64.9 - ANEMIA, UNSPECIFIED (7) Sepsis Code(s): A41.9 - SEPSIS, UNSPECIFIED ORGANISM (8) Shock Code(s): R57.9 - SHOCK, UNSPECIFIED (9) Septic shock Code(s): A41.9 - SEPSIS, UNSPECIFIED ORGANISM R65.21 - SEVERE SEPSIS WITH SEPTIC SHOCK (10) Gram-negative bacteremia Code(s): R78.81 - BACTEREMIA ASSESSMENT AND PLAN: Neutropenic Septic Shock E Coli Bacteremia Waldenstrom's Macroglobulinemia Severe Anemia Severe Thrombocytopenia Epistaxis r/o Acute Cholecystitis - ABX - Normal transfusion thresholds - offered HIDA scan to r/o biliary obstruction but pt adamantly refusing further procedures/diagnostic testing - O2 to keep spO2 >90% - neutropenic precautions - DVT prophylaxis - Floor Dr Reid
--- NOTE | 2016-06-12 14:37 | PN ---
Teaching Attending Note Name of Resident: Hernandez Dumont ATTENDING PHYSICIAN STATEMENT I saw and evaluated the patient. I reviewed the resident's note and discussed the case with the resident. I agree with the resident's findings and plan as documented. SUBJECTIVE: Patient has no new complains, comfortable with no acute distress. OBJECTIVE: Vital Signs Temperature 100 F H 06/12/16 14:00 Pulse Rate 102 H 06/12/16 12:00 Respiratory Rate 20 06/12/16 14:00 Blood Pressure 105/75 06/12/16 14:00 O2 Sat by Pulse Oximetry (%) 96 06/12/16 09:00 GENERAL: Awake, alert, and fully oriented, in no acute distress. lying in bed comfortably. HEAD: Normal with no signs of trauma. EYES: Pupils equal, round and reactive to light, extraocular movements intact, sclera anicteric, conjunctiva clear. EARS, NOSE, THROAT: Ears normal, oropharynx clear without exudates. Moist mucous membranes. NECK: Normal range of motion, supple without lymphadenopathy, JVD, or masses. LUNGS: Breath sounds equal, clear to auscultation bilaterally. No wheezes, and no crackles. No accessory muscle use. HEART: Regular rate and rhythm, normal S1 and S2 without murmur, rub or gallop. ABDOMEN: Soft, nontender, not distended, normoactive bowel sounds, no guarding, no rebound, no masses appreciated . MUSCULOSKELETAL: Normal range of motion at all joints. No bony deformities or tenderness. No CVA tenderness. EXTREMITIES: 2+ pulses, warm, well-perfused. No calf tenderness. No peripheral edema. NEUROLOGICAL: Cranial nerves II-XII intact. Normal speech. PSYCHIATRIC: Cooperative. Good eye contact. Appropriate mood and affect. SKIN: Warm, dry, normal turgor, no rashes or lesions noted. CBCD WBC 0.5 K/mm3 (4.0-10.0) L 06/11/16 05:00 RBC 2.95 M/mm3 (3.60-5.2) L 06/11/16 05:00 Hgb 8.1 GM/dL (10.7-15.3) L 06/11/16 05:00 Hct 23.3 % (32.4-45.2) L 06/11/16 05:00 MCV 79.1 fl (80-96) L 06/11/16 05:00 MCHC 34.9 g/dl (32.0-36.0) 06/11/16 05:00 RDW 17.7 % (11.6-15.6) H 06/11/16 05:00 Plt Count 13 K/MM3 (134-434) L* 06/11/16 05:00 MPV 8.8 fl (7.5-11.1) 06/11/16 05:00 CMP Sodium 135 mmol/L (136-145) L 06/11/16 05:00 Potassium 3.4 mmol/L (3.5-5.1) L 06/11/16 05:00 Chloride 99 mmol/L (98-107) 06/11/16 05:00 Carbon Dioxide 25 mmol/L (21-32) 06/11/16 05:00 Anion Gap 11 (8-16) 06/11/16 05:00 BUN 16 mg/dL (7-18) D 06/11/16 05:00 Creatinine 0.5 mg/dL (0.55-1.02) L 06/11/16 05:00 Creat Clearance w eGFR > 60 (>60) 06/11/16 05:00 Random Glucose 114 mg/dL (74-106) H 06/11/16 05:00 Calcium 7.1 mg/dL (8.5-10.1) L 06/11/16 05:00 Total Bilirubin 1.1 mg/dL (0.2-1.0) H 06/11/16 05:00 AST 72 U/L (15-37) H D 06/11/16 05:00 ALT 178 U/L (12-78) H D 06/11/16 05:00 Alkaline Phosphatase 158 U/L (45-117) H D 06/11/16 05:00 Total Protein 5.5 g/dl (6.4-8.2) L 06/11/16 05:00 Albumin 1.7 g/dl (3.4-5.0) L 06/11/16 05:00 CARDIAC ENZYMES Creatine Kinase 66 IU/L (26-192) 06/06/16 20:00 Troponin I < 0.02 ng/ml (0.00-0.05) 06/06/16 20:00 Home Medications Medication Instructions Recorded Calcium Carbonate/Vitamin D3 1 each PO BID 06/06/16 [Calcium 600 + Vit D 200 Tablet] Gabapentin [Neurontin -] 100 mg PO TID 06/06/16 Gluc Schmitz/Chondro Schmitz A/Vit C/Mn 1 each PO DAILY 06/06/16 [Glucosamine 1,500 Complex Cp] Montelukast Na [Singulair -] 10 mg PO DAILY 06/06/16 Multivitamin with Minerals [Icaps 1 each PO DAILY 06/06/16 Plus] Omeprazole 20 mg PO DAILY 06/06/16 Valacyclovir HCl [Valtrex -] 500 mg PO BID 06/06/16 Alendronate Na [Fosamax] 70 mg PO Q7D 06/07/16 Biotin 10,000 mcg PO DAILY 06/07/16 Lactobacillus Acidophilus 1 each PO DAILY 06/07/16 [Acidophilus] Magnesium Oxide [Magnesium] 500 mg PO DAILY 06/07/16 Selenium 200 mcg PO DAILY 06/07/16 Vitamin B Complex/Minerals [Sm 1 each PO DAILY 06/07/16 Stress Formula+Zinc Tablet] Zinc 50 mg PO DAILY 06/07/16 Microbiology 06/08/16 05:55 Blood - Peripheral Venous Blood Culture - Final NO GROWTH AFTER 5 DAYS INCUBATION 06/08/16 05:45 Blood - Peripheral Venous Blood Culture - Final NO GROWTH AFTER 5 DAYS INCUBATION 06/11/16 15:30 Blood - Peripheral Venous Blood Culture - Preliminary NO GROWTH OBTAINED AFTER 24 HOURS, INCUBATION TO CONTINUE FOR 4 DAYS. 06/11/16 15:30 Blood - Peripheral Venous Blood Culture - Preliminary NO GROWTH OBTAINED AFTER 24 HOURS, INCUBATION TO CONTINUE FOR 4 DAYS. 06/06/16 20:00 Blood - Peripheral Venous Blood Culture - Final Escherichia Coli 06/07/16 22:10 Nasopharyngeal Swab Respiratory Virus Panel - Preliminary 06/06/16 20:00 Blood - Peripheral Venous Blood Culture - Final Escherichia Coli 06/07/16 06:44 Urine - Urine Clean Catch Urine Culture - Final 06/07/16 22:10 Nasopharyngeal Swab Influenza Types A,B Antigen (LUISANA) - Final 06/07/16 22:10 Nasopharyngeal Swab - Final CT abd showed R hydronephrosis and ureter with no stone . will obtain post void bladder scan as bladder was distended on CT scan . Further w/u is needed if no retention ASSESSMENT AND PLAN: 75 y/o pleasant unfortunate lady with h/o Waldenstrome lymphoma, pancytopenia and recurrent transfusions , h/o syphlitis , PNAs, who presented with fever . She was found to be in septic shock and bacteremic # S/p Spetic shock . Final culture positive for E.Coli (2/2) bacteremia sensitive to everything , on Merepenem IV continue ,ID on the case , repeat blood cx neg to date. BP is doing better SBP in 105 today # Acute Pancytopenia due to chemo therapy ( last received Daratumunab 2 weeks ago) . has Abs C .s/p PRBCs Cneg.s/p platelets transfusion as well. Her baseline is around 13K # RADHAMES : improved s/p IVF Code status :DNR/DNI Waiting for bed in [place] to tx the patient
[2016-06-12] MEDS: ACETAMINOPHEN 325 MG TABLET (FP) PO PRN (15:09)
--- NOTE | 2016-06-12 15:26 | PN ---
Progress Note, Physician History of Present Illness: patient still running fever but comfortable no new events - Current Medication List Current Medications: Active Medications Acetaminophen (Tylenol -) 650 mg PO Q6H PRN PRN Reason: FEVER OR PAIN Last Admin: 06/12/16 15:09 Dose: 650 mg Dronabinol (Marinol -) 2.5 mg PO BID@0800,1700 OPAL Last Admin: 06/12/16 08:19 Dose: 2.5 mg Meropenem 1 gm/ Dextrose 100 mls @ 200 mls/hr IVPB Q8H-IV OPAL PRN Reason: Protocol Last Admin: 06/12/16 09:03 Dose: 200 mls/hr Pantoprazole Sodium (Protonix 40mg Ivpb (Pre-Docked)) 100 mls @ 200 mls/hr IVPB DAILY OPAL Last Admin: 06/12/16 09:03 Dose: 200 mls/hr Sodium Chloride (Normal Saline -) 1,000 mls @ 50 mls/hr IV ASDIR OPAL Last Admin: 06/12/16 12:06 Dose: 50 mls/hr Morphine Sulfate (Morphine Injection -) 1 mg IVPUSH Q4H PRN PRN Reason: PAIN Last Admin: 06/12/16 14:08 Dose: 1 mg Ondansetron HCl (Zofran Injection) 4 mg IVPB Q6H PRN PRN Reason: NAUSEA Last Admin: 06/08/16 20:50 Dose: 4 mg - Objective Vital Signs: Vital Signs Temperature 100 F H 06/12/16 14:00 Pulse Rate 102 H 06/12/16 12:00 Respiratory Rate 20 06/12/16 14:00 Blood Pressure 105/75 06/12/16 14:00 O2 Sat by Pulse Oximetry (%) 96 06/12/16 09:00 Constitutional: Yes: No Distress Cardiovascular: Yes: Regular Rate and Rhythm Respiratory: Yes: Regular, Poor Air Entry Gastrointestinal: Yes: Normal Bowel Sounds, Soft Musculoskeletal: Yes: Other Extremities: Yes: Other Neurological: Yes: Alert, Oriented Psychiatric: Yes: Alert Labs: CBC, BMP 06/11/16 05:00 06/11/16 05:00 INR, PTT INR 1.61 (0.82-1.09) H 06/11/16 05:00 Fibrinogen 651.0 mg/dL (238-498) H 06/08/16 20:45 Assessment/Plan Neutropenic fever Pancytopenic Waldernstrom's lymphoma fever bacteremia gram negative dehydration Problem List - Problems (1) Fever Code(s): R50.9 - FEVER, UNSPECIFIED (2) Neutropenic fever Code(s): D70.9 - NEUTROPENIA, UNSPECIFIED R50.81 - FEVER PRESENTING WITH CONDITIONS CLASSIFIED ELSEWHERE (3) Pancytopenia Code(s): D61.818 - OTHER PANCYTOPENIA (4) Waldenstrom's disease Code(s): C88.0 - WALDENSTROM MACROGLOBULINEMIA (5) Thrombocytopenia Code(s): D69.6 - THROMBOCYTOPENIA, UNSPECIFIED (6) Anemia Code(s): D64.9 - ANEMIA, UNSPECIFIED (7) Sepsis Code(s): A41.9 - SEPSIS, UNSPECIFIED ORGANISM (8) Shock Code(s): R57.9 - SHOCK, UNSPECIFIED (9) Septic shock Code(s): A41.9 - SEPSIS, UNSPECIFIED ORGANISM R65.21 - SEVERE SEPSIS WITH SEPTIC SHOCK (10) Gram-negative bacteremia Code(s): R78.81 - BACTEREMIA plan continue abx await for repeat cx report continues to spike fevers close monitoring supportive measures cc time 40 min
--- NOTE | 2016-06-12 17:12 | PN ---
Physical Exam: SUBJECTIVE: Patient seen and examined. Feels warm and thirsty. has pain from wound on gluteus. OBJECTIVE: Vital Signs Period Temp Pulse Resp BP Sys/Hilton Pulse Ox Last 24 Hr 97.3 F-100.8 F 90-112 20-25 91-111/48-75 96-96 GENERAL: The patient is awake, alert, and fully oriented, in no acute distress. EYES: extraocular movements intact ENT: oropharynx clear without exudates, moist mucous membranes. LUNGS: Breath sounds equal, diminished at bases HEART: Regular rate and rhythm, S1, S2 ABDOMEN: Soft, nontender, nondistended, normoactive bowel sounds EXTREMITIES: 2+ pulses, warm, well-perfused, no edema. PSYCH: Normal mood, normal affect. Laboratory Results - last 24 hr 06/08/16 10:20 Crossmatch See Detail Active Medications Generic Name Dose Route Start Last Admin Trade Name Freq PRN Reason Stop Dose Admin Acetaminophen 650 mg 06/07/16 02:16 06/12/16 15:09 Tylenol - PO 650 mg Q6H PRN Administration FEVER OR PAIN Dronabinol 2.5 mg 06/10/16 08:00 06/12/16 17:06 Marinol - PO 2.5 mg BID@0800,1700 OPAL Administration Meropenem 1 gm/ Dextrose 100 mls @ 200 mls/hr 06/07/16 18:00 06/12/16 17:07 IVPB 200 mls/hr Q8H-IV OPAL Administration Protocol Pantoprazole Sodium 100 mls @ 200 mls/hr 06/09/16 12:30 06/12/16 09:03 Protonix 40mg Ivpb (Pre-Docked) IVPB 200 mls/hr DAILY OPAL Administration Sodium Chloride 1,000 mls @ 50 mls/hr 06/10/16 10:51 06/12/16 12:06 Normal Saline - IV 50 mls/hr ASDIR OPAL Administration Morphine Sulfate 1 mg 06/09/16 04:22 06/12/16 14:08 Morphine Injection - IVPUSH 1 mg Q4H PRN Administration PAIN Ondansetron HCl 4 mg 06/07/16 02:16 06/08/16 20:50 Zofran Injection IVPB 4 mg Q6H PRN Administration NAUSEA ASSESSMENT/PLAN: 75 y/o woman with h/o Waldenstrom macroglobuniema undergoing chemo with Daratumunab (last dose 2 weeks ago) pancytopenic and recurrent transfusions , h/ o typhlitis, PNAs, who presented with fever, found to be septic shock with pansensitive e.coli bactermia with findings of cholecystitis. #Palliative Care involved - GOC discussed with family. - awaiting transfer to [facility] - will provide support - pain control with morphine #septic shock with e.coli bacteremia and fevers on antibiotics. - no further interventions. - The cholecystitis could be possible source of fevers - continue Meropenem - day 6 #Hypotension - improved. - off dopamine - IVF @50mls/hr - will stop fluids and BP is now stable #Pancytopenia; anemia/thrombocytopenia - improved, h/h stable - s/p 5 units prbc's, 2 units platelets #dvt - scd's #Diet - sodium controlled diet with ensure TID, marinol added for appetite stimulation Visit type - Emergency Visit Emergency Visit: No - New Patient This patient is new to me today: No - Critical Care Critical Care patient: Yes Total Critical Care Time (in minutes): 45 Critical Care Statement: The care of this patient involved high complexity decision making to prevent further life threatening deterioration of the patient 's condition and/or to evalute & treat vital organ system(s) failure or risk of failure. - Discharge Referral Referred to [facility] Med P.C.: No
[2016-06-12] MEDS ORDERED: ACETAMINOPHEN 325 MG TABLET (FP) PO PRN (21:09)
[2016-06-12] MEDS ORDERED: ONDANSETRON 4 MG/2 ML VIAL IVPB PRN (21:09)
[2016-06-12] MEDS ORDERED: KETOROLAC TROMETHAMINE 30 MG/1 ML VIAL IVPUSH ONE (21:13)
[2016-06-13] MEDS: morphine CARPU-JECT 2 MG/1 ML DISP.SYRIN IVPUSH PRN ×5 (01:30→23:30)
[2016-06-13] MEDS: MEROPENEM 1 GM in DEXTROSE 5%-WATER - 100 ML IVPB SCH ×3 (01:52→16:59)
[2016-06-13 08:01] LABS: MCH 27.4 pg (25.7-33.7); MCHC 34.1 g/dl (32.0-36.0); MEAN CELL VOLUME 80.4 fl (80-96); MEAN PLT VOLUME 8.8 fl (7.5-11.1); PLATELET COUNT 8 K/MM3 (134-434); RDW 17.3 % (11.6-15.6)
[2016-06-13 08:29] LABS: ALBUMIN 1.5 g/dl (3.4-5.0); ANION GAP 8 (8-16); CALCIUM 7.7 mg/dL (8.5-10.1); CO2 29 mmol/L (21-32); CREATININE 0.4 mg/dL (0.55-1.02)
[2016-06-13 08:33] LABS: ALK PHOS 136 U/L (45-117); BILIRUBIN,TOTAL 0.8 mg/dL (0.2-1.0)
[2016-06-13 08:34] LABS: SGOT/AST 29 U/L (15-37)
[2016-06-13 08:35] LABS: GLUCOSE,RANDOM 125 mg/dL (74-106); SGPT/ALT 98 U/L (12-78)
[2016-06-13 08:44] LABS: WHITE BLOOD COUNT 0.3 K/mm3 (4.0-10.0)
[2016-06-13 09:28] LABS: ANISOCYTOSIS 1+; HYPOCHROMIA 2+; PLATELET COMMENT2 NO CLOTTING DETECTED; PLATELET ESTIMATE MARKEDLY DECREASED (NORMAL)
[2016-06-13] MEDS: DRONABINOL 2.5 MG CAPSULE PO SCH ×2 (10:40→16:59)
[2016-06-13] MEDS: SODIUM CHLORIDE 1,000 ML IV SCH ×2 (10:45→21:10)
[2016-06-13] MEDS: PANTOPRAZOLE SODIUM 100 ML IVPB SCH (11:28)
--- NOTE | 2016-06-13 14:24 | PN ---
Progress Note, Physician History of Present Illness: stable still neutropenic has been afebrile for more than 12 hours now looks and feels much better - Current Medication List Current Medications: Active Medications Acetaminophen (Tylenol -) 650 mg PO Q6H PRN PRN Reason: FEVER OR PAIN Dronabinol (Marinol -) 2.5 mg PO BID@0800,1700 OPAL Last Admin: 06/13/16 10:40 Dose: 2.5 mg Meropenem 1 gm/ Dextrose 100 mls @ 200 mls/hr IVPB Q8H-IV OPAL PRN Reason: Protocol Last Admin: 06/13/16 10:40 Dose: 200 mls/hr Pantoprazole Sodium (Protonix 40mg Ivpb (Pre-Docked)) 100 mls @ 200 mls/hr IVPB DAILY OPAL Last Admin: 06/13/16 11:28 Dose: 200 mls/hr Sodium Chloride (Normal Saline -) 1,000 mls @ 50 mls/hr IV ASDIR OPAL Last Admin: 06/13/16 10:45 Dose: 50 mls/hr Morphine Sulfate (Morphine Injection -) 1 mg IVPUSH Q4H PRN PRN Reason: PAIN Last Admin: 06/13/16 10:48 Dose: 1 mg Ondansetron HCl (Zofran Injection) 4 mg IVPB Q6H PRN PRN Reason: NAUSEA - Objective Vital Signs: Vital Signs Temperature 98.2 F 06/13/16 10:00 Pulse Rate 100 H 06/13/16 10:00 Respiratory Rate 20 06/13/16 10:00 Blood Pressure 100/53 06/13/16 10:00 O2 Sat by Pulse Oximetry (%) 96 06/12/16 21:00 Constitutional: Yes: No Distress, Calm Cardiovascular: Yes: Regular Rate and Rhythm Respiratory: Yes: Regular, CTA Bilaterally Gastrointestinal: Yes: Normal Bowel Sounds, Soft Musculoskeletal: Yes: WNL Extremities: Yes: WNL Neurological: Yes: Alert, Oriented Psychiatric: Yes: Alert Labs: CBC, BMP 06/13/16 07:05 06/13/16 07:00 INR, PTT INR 1.61 (0.82-1.09) H 06/11/16 05:00 Fibrinogen 651.0 mg/dL (238-498) H 06/08/16 20:45 Assessment/Plan Neutropenic fever Pancytopenic Waldernstrom's lymphoma fever bacteremia gram negative dehydration Problem List - Problems (1) Fever Code(s): R50.9 - FEVER, UNSPECIFIED (2) Neutropenic fever Code(s): D70.9 - NEUTROPENIA, UNSPECIFIED R50.81 - FEVER PRESENTING WITH CONDITIONS CLASSIFIED ELSEWHERE (3) Pancytopenia Code(s): D61.818 - OTHER PANCYTOPENIA (4) Waldenstrom's disease Code(s): C88.0 - WALDENSTROM MACROGLOBULINEMIA (5) Thrombocytopenia Code(s): D69.6 - THROMBOCYTOPENIA, UNSPECIFIED (6) Anemia Code(s): D64.9 - ANEMIA, UNSPECIFIED (7) Sepsis Code(s): A41.9 - SEPSIS, UNSPECIFIED ORGANISM (8) Shock Code(s): R57.9 - SHOCK, UNSPECIFIED (9) Septic shock Code(s): A41.9 - SEPSIS, UNSPECIFIED ORGANISM R65.21 - SEVERE SEPSIS WITH SEPTIC SHOCK (10) Gram-negative bacteremia Code(s): R78.81 - BACTEREMIA plan continue abx repeat cx negative stable from fever point of view close monitoring supportive measures
--- NOTE | 2016-06-13 15:15 | PN ---
Progress Note (short form) - Note Progress Note: Patient is comfortable, requesting stool softener. No new complains. Vital Signs Temperature 97.8 F 06/13/16 14:00 Pulse Rate 100 H 06/13/16 14:00 Respiratory Rate 20 06/13/16 14:00 Blood Pressure 101/58 06/13/16 14:00 O2 Sat by Pulse Oximetry (%) 96 06/12/16 21:00 GENERAL: Awake, alert, and fully oriented, in no acute distress. lying in bed comfortably. HEAD: Normal with no signs of trauma. EYES: Pupils equal, round and reactive to light, extraocular movements intact, sclera anicteric, conjunctiva clear. EARS, NOSE, THROAT: Ears normal, oropharynx clear without exudates. Moist mucous membranes. NECK: Normal range of motion, supple without lymphadenopathy, JVD, or masses. LUNGS: Breath sounds equal, clear to auscultation bilaterally. No wheezes, and no crackles. No accessory muscle use. HEART: Regular rate and rhythm, normal S1 and S2 without murmur, rub or gallop. ABDOMEN: Soft, nontender, not distended, normoactive bowel sounds, no guarding, no rebound, no masses appreciated . MUSCULOSKELETAL: Normal range of motion at all joints. No bony deformities or tenderness. No CVA tenderness. EXTREMITIES: 2+ pulses, warm, well-perfused. No calf tenderness. No peripheral edema. NEUROLOGICAL: Cranial nerves II-XII intact. Normal speech. PSYCHIATRIC: Cooperative. Good eye contact. Appropriate mood and affect. SKIN: Warm, dry, normal turgor, no rashes or lesions noted. CBCD WBC 0.3 K/mm3 (4.0-10.0) L* D 06/13/16 07:05 RBC 2.68 M/mm3 (3.60-5.2) L 06/13/16 07:05 Hgb 7.3 GM/dL (10.7-15.3) L 06/13/16 07:05 Hct 21.6 % (32.4-45.2) L 06/13/16 07:05 MCV 80.4 fl (80-96) 06/13/16 07:05 MCHC 34.1 g/dl (32.0-36.0) 06/13/16 07:05 RDW 17.3 % (11.6-15.6) H 06/13/16 07:05 Plt Count 8 K/MM3 (134-434) L* D 06/13/16 07:05 MPV 8.8 fl (7.5-11.1) 06/13/16 07:05 CMP Sodium 137 mmol/L (136-145) 06/13/16 07:00 Potassium 3.7 mmol/L (3.5-5.1) 06/13/16 07:00 Chloride 100 mmol/L (98-107) 06/13/16 07:00 Carbon Dioxide 29 mmol/L (21-32) 06/13/16 07:00 Anion Gap 8 (8-16) 06/13/16 07:00 BUN 16 mg/dL (7-18) 06/13/16 07:00 Creatinine 0.4 mg/dL (0.55-1.02) L 06/13/16 07:00 Creat Clearance w eGFR > 60 (>60) 06/13/16 07:00 Random Glucose 125 mg/dL (74-106) H 06/13/16 07:00 Calcium 7.7 mg/dL (8.5-10.1) L 06/13/16 07:00 Total Bilirubin 0.8 mg/dL (0.2-1.0) D 06/13/16 07:00 AST 29 U/L (15-37) D 06/13/16 07:00 ALT 98 U/L (12-78) H D 06/13/16 07:00 Alkaline Phosphatase 136 U/L (45-117) H 06/13/16 07:00 Total Protein 5.0 g/dl (6.4-8.2) L 06/13/16 07:00 Albumin 1.5 g/dl (3.4-5.0) L 06/13/16 07:00 CARDIAC ENZYMES Creatine Kinase 66 IU/L (26-192) 06/06/16 20:00 Troponin I < 0.02 ng/ml (0.00-0.05) 06/06/16 20:00 Current Medications Generic Name Dose Route Start Last Admin Trade Name Freq PRN Reason Stop Dose Admin Acetaminophen 650 mg 06/12/16 21:09 Tylenol - PO Q6H PRN FEVER OR PAIN Dronabinol 2.5 mg 06/13/16 08:00 06/13/16 10:40 Marinol - PO 2.5 mg BID@0800,1700 OPAL Administration Meropenem 1 gm/ Dextrose 100 mls @ 200 mls/hr 06/13/16 02:00 06/13/16 10:40 IVPB 200 mls/hr Q8H-IV OPAL Administration Protocol Pantoprazole Sodium 100 mls @ 200 mls/hr 06/13/16 10:00 06/13/16 11:28 Protonix 40mg Ivpb (Pre-Docked) IVPB 200 mls/hr DAILY OPAL Administration Sodium Chloride 1,000 mls @ 50 mls/hr 06/12/16 21:09 06/13/16 10:45 Normal Saline - IV 50 mls/hr ASDIR OPAL Administration Morphine Sulfate 1 mg 06/12/16 21:09 06/13/16 10:48 Morphine Injection - IVPUSH 1 mg Q4H PRN Administration PAIN Ondansetron HCl 4 mg 06/12/16 21:09 Zofran Injection IVPB Q6H PRN NAUSEA Home Medications Medication Instructions Recorded Calcium Carbonate/Vitamin D3 1 each PO BID 06/06/16 [Calcium 600 + Vit D 200 Tablet] Gabapentin [Neurontin -] 100 mg PO TID 06/06/16 Gluc Schmitz/Chondro Schmitz A/Vit C/Mn 1 each PO DAILY 06/06/16 [Glucosamine 1,500 Complex Cp] Montelukast Na [Singulair -] 10 mg PO DAILY 06/06/16 Multivitamin with Minerals [Icaps 1 each PO DAILY 06/06/16 Plus] Omeprazole 20 mg PO DAILY 06/06/16 Valacyclovir HCl [Valtrex -] 500 mg PO BID 06/06/16 Alendronate Na [Fosamax] 70 mg PO Q7D 06/07/16 Biotin 10,000 mcg PO DAILY 06/07/16 Lactobacillus Acidophilus 1 each PO DAILY 06/07/16 [Acidophilus] Magnesium Oxide [Magnesium] 500 mg PO DAILY 06/07/16 Selenium 200 mcg PO DAILY 06/07/16 Vitamin B Complex/Minerals [Sm 1 each PO DAILY 06/07/16 Stress Formula+Zinc Tablet] Zinc 50 mg PO DAILY 06/07/16 CT abd showed R hydronephrosis and ureter with no stone . will obtain post void bladder scan as bladder was distended on CT scan . Further w/u is needed if no retention ASSESSMENT AND PLAN: 75 y/o pleasant unfortunate lady with h/o Waldenstrome lymphoma, pancytopenia and recurrent transfusions , h/o syphlitis , PNAs, who presented with fever . She was found to be in septic shock and bacteremic on admission. # S/p Spetic shock . Final culture positive for E.Coli (2/2) bacteremia sensitive to everything , on Merepenem IV continue ,ID on the case , repeat blood cx neg to date. BP is doing better SBP in 105 today # Acute Pancytopenia due to chemo therapy ( last received Daratumunab 2 weeks ago) . has Abs C .s/p PRBCs C neg. transfusion s/p platelets transfusion as well ( baseline is around 13K) # Acute Right hydronephrosis and ureter with no stone . will get post void bladder scan since reported bladder distention on CT scan . # RADHAMES : improved s/p IVF Code status :DNR/DNI Waiting for bed in [facility] the patient Visit type - Emergency Visit Emergency Visit: Yes ED Registration Date: 06/07/16 Care time: The patient presented to the Emergency Department on the above date and was hospitalized for further evaluation of their emergent condition. - New Patient This patient is new to me today: No - Critical Care Critical Care patient: No
[2016-06-13] MEDS ORDERED: PT OWN MED DRAWER 7, Y5N ONE (16:57)
[2016-06-13] MEDS: DOCUSATE SODIUM 100 MG CAPSULE (FP) PO SCH (16:59)
[2016-06-13] MEDS ORDERED: LIDOCAINE 5% TOPICAL PATCH TP ONE (19:15)
[2016-06-14] MEDS: MEROPENEM 1 GM in DEXTROSE 5%-WATER - 100 ML IVPB SCH ×3 (01:00→18:21)
[2016-06-14] MEDS: morphine CARPU-JECT 2 MG/1 ML DISP.SYRIN IVPUSH PRN ×5 (04:05→21:53)
[2016-06-14] MEDS: DRONABINOL 2.5 MG CAPSULE PO SCH ×2 (08:53→18:22)
[2016-06-14] MEDS: PANTOPRAZOLE SODIUM 100 ML IVPB SCH (09:01)
[2016-06-14] MEDS: DOCUSATE SODIUM 100 MG CAPSULE (FP) PO SCH (09:01)
[2016-06-14] MEDS ORDERED: PT OWN MED DRAWER 7, Y5N ONE ×2 (09:16→18:18)
--- NOTE | 2016-06-14 09:44 | PN ---
Physical Exam: SUBJECTIVE: Patient seen and examined c/o pain in her buttox and b/l shoulder pain. has good appetite, swallowing without difficulty denies chest pain, SOB, cough, fever, chills, dysuria, constipation. OBJECTIVE: Vital Signs Period Temp Pulse Resp BP Sys/Hilton Pulse Ox Last 24 Hr 97.8 F-98.4 F 91-103 18-20 100-111/53-61 98 GENERAL: The patient is awake, alert, and fully oriented, in no acute distress. HEENT: trachea midline, no LAD, nares patent, no mucisitis, no petechia LUNGS: ctab HEART: Regular rate and rhythm, S1, S2 without murmur, rub or gallop. ABDOMEN: Soft, nontender, mildy distended, normoactive bowel sounds EXTREMITIES: 2+ pulses, warm, well-perfused, no edema. NEUROLOGICAL: Normal speech. Laboratory Results - last 24 hr 06/08/16 06/10/16 10:20 11:40 Blood Type O POSITIVE Antibody Screen Positive H Crossmatch See Detail See Detail Active Medications Generic Name Dose Route Start Last Admin Trade Name Freq PRN Reason Stop Dose Admin Acetaminophen 650 mg 06/12/16 21:09 06/13/16 18:46 Tylenol - PO 650 mg Q6H PRN Administration FEVER OR PAIN Docusate Sodium 100 mg 06/13/16 17:00 06/14/16 09:01 Colace - PO 100 mg DAILY OPAL Administration Dronabinol 2.5 mg 06/13/16 08:00 06/14/16 08:53 Marinol - PO 2.5 mg BID@0800,1700 OPAL Administration Meropenem 1 gm/ Dextrose 100 mls @ 200 mls/hr 06/13/16 02:00 06/14/16 01:00 IVPB 200 mls/hr Q8H-IV OPAL Administration Protocol Pantoprazole Sodium 100 mls @ 200 mls/hr 06/13/16 10:00 06/14/16 09:01 Protonix 40mg Ivpb (Pre-Docked) IVPB 200 mls/hr DAILY OPAL Administration Sodium Chloride 1,000 mls @ 50 mls/hr 06/12/16 21:09 06/13/16 21:10 Normal Saline - IV Not Given ASDIR OPAL Morphine Sulfate 2 mg 06/13/16 19:14 06/14/16 08:53 Morphine Injection - IVPUSH 2 mg Q4H PRN Administration PAIN Ondansetron HCl 4 mg 06/12/16 21:09 Zofran Injection IVPB Q6H PRN NAUSEA ASSESSMENT/PLAN: 75 y/o woman with h/o Waldenstrom macroglobuniema undergoing chemo with Daratumunab (last dose 2 weeks ago) pancytopenic and recurrent transfusions , h/ o typhlitis, PNAs, who presented with fever, found to be septic shock with pansensitive e.coli bactermia. #Palliative Care involved - GOC discussed with family. - will provide support - lidocaine patch TP daily for 12h - morphine 2mg ivpush #septic shock with e.coli bacteremia, cholecystitis - ultrasound shows concern for cholecystitis, patient declined interventions, discussed with ICU team, surgical team(Dr. Barrios) she adamantly declined further interventions and imaging. - The cholecystitis could be possible source of fevers - continue Meropenem - started 06/07 - dr. hdz consulted #Hypotension - improved. - off dopamine - d/c fluids #Pancytopenia; anemia/thrombocytopenia - improved h/h stable, transfusion threshold: Hct 20% or platelets 10K - received platelets yesterday 06/13 - repeat labs in the AM #dvt - scd's #Diet - sodium controlled diet with ensure TID and fruit, marinol for appetite stimulation Visit type - Emergency Visit Emergency Visit: No - New Patient This patient is new to me today: No - Critical Care Critical Care patient: No - Discharge Referral Referred to [facility] Med P.C[facility] No
--- NOTE | 2016-06-14 16:25 | PN ---
Progress Note, Physician History of Present Illness: doing well pain is main issue has been afebrile now for more than quite some time - Current Medication List Current Medications: Active Medications Acetaminophen (Tylenol -) 650 mg PO Q6H PRN PRN Reason: FEVER OR PAIN Last Admin: 06/13/16 18:46 Dose: 650 mg Docusate Sodium (Colace -) 100 mg PO DAILY [facility] Last Admin: 06/14/16 09:01 Dose: 100 mg Dronabinol (Marinol -) 2.5 mg PO BID@0800,1700 [facility] Last Admin: 06/14/16 08:53 Dose: 2.5 mg Meropenem 1 gm/ Dextrose 100 mls @ 200 mls/hr IVPB Q8H-IV OPAL PRN Reason: Protocol Last Admin: 06/14/16 11:10 Dose: 200 mls/hr Pantoprazole Sodium (Protonix 40mg Ivpb (Pre-Docked)) 100 mls @ 200 mls/hr IVPB DAILY [facility] Last Admin: 06/14/16 09:01 Dose: 200 mls/hr Lidocaine (Lidoderm Patch -) 1 patch TP DAILY [facility] Morphine Sulfate (Morphine Injection -) 2 mg IVPUSH Q4H PRN PRN Reason: PAIN Last Admin: 06/14/16 13:31 Dose: 2 mg Ondansetron HCl (Zofran Injection) 4 mg IVPB Q6H PRN PRN Reason: NAUSEA - Objective Vital Signs: Vital Signs Temperature 99.1 F 06/14/16 14:00 Pulse Rate 97 H 06/14/16 14:00 Respiratory Rate 18 06/14/16 14:00 Blood Pressure 108/62 06/14/16 14:00 O2 Sat by Pulse Oximetry (%) 98 06/14/16 09:00 Constitutional: Yes: No Distress, Calm Cardiovascular: Yes: Regular Rate and Rhythm Respiratory: Yes: Regular, Poor Air Entry Gastrointestinal: Yes: Normal Bowel Sounds, Distention, Tenderness Musculoskeletal: Yes: WNL Extremities: Yes: WNL Neurological: Yes: Alert, Oriented Psychiatric: Yes: Alert, Oriented Labs: CBC, BMP 06/13/16 07:05 06/13/16 07:00 INR, PTT INR 1.61 (0.82-1.09) H 06/11/16 05:00 Fibrinogen 651.0 mg/dL (238-498) H 06/08/16 20:45 Assessment/Plan Neutropenic fever Pancytopenic Waldernstrom's lymphoma fever bacteremia gram negative dehydration Problem List - Problems (1) Fever Code(s): R50.9 - FEVER, UNSPECIFIED (2) Neutropenic fever Code(s): D70.9 - NEUTROPENIA, UNSPECIFIED R50.81 - FEVER PRESENTING WITH CONDITIONS CLASSIFIED ELSEWHERE (3) Pancytopenia Code(s): D61.818 - OTHER PANCYTOPENIA (4) Waldenstrom's disease Code(s): C88.0 - WALDENSTROM MACROGLOBULINEMIA (5) Thrombocytopenia Code(s): D69.6 - THROMBOCYTOPENIA, UNSPECIFIED (6) Anemia Code(s): D64.9 - ANEMIA, UNSPECIFIED (7) Sepsis Code(s): A41.9 - SEPSIS, UNSPECIFIED ORGANISM (8) Shock Code(s): R57.9 - SHOCK, UNSPECIFIED (9) Septic shock Code(s): A41.9 - SEPSIS, UNSPECIFIED ORGANISM R65.21 - SEVERE SEPSIS WITH SEPTIC SHOCK (10) Gram-negative bacteremia Code(s): R78.81 - BACTEREMIA plan continue abx repeat cx negative stable from fever point of view close monitoring supportive measures will deescalte probably by wednesday
--- NOTE | 2016-06-14 17:48 | PN ---
Teaching Attending Note Name of Resident: Hernandez Dumont ATTENDING PHYSICIAN STATEMENT I saw and evaluated the patient. I reviewed the resident's note and discussed the case with the resident. I agree with the resident's findings and plan as documented. SUBJECTIVE: Patient is feeling better, with no acute distress just c/o having some pain requesting Lidocaine patch. OBJECTIVE: Vital Signs Temperature 99.1 F 06/14/16 14:00 Pulse Rate 97 H 06/14/16 14:00 Respiratory Rate 18 06/14/16 14:00 Blood Pressure 108/62 06/14/16 14:00 O2 Sat by Pulse Oximetry (%) 98 06/14/16 09:00 GENERAL: Awake, alert, and fully oriented, in no acute distress. lying in bed comfortably. HEAD: Normal with no signs of trauma. EYES: Pupils equal, round and reactive to light, extraocular movements intact, sclera anicteric, conjunctiva clear. EARS, NOSE, THROAT: Ears normal, oropharynx clear without exudates. Moist mucous membranes. NECK: Normal range of motion, supple without lymphadenopathy, JVD, or masses. LUNGS: Breath sounds equal, clear to auscultation bilaterally. No wheezes, and no crackles. No accessory muscle use. HEART: Regular rate and rhythm, normal S1 and S2 without murmur, rub or gallop. ABDOMEN: Soft, nontender, not distended, normoactive bowel sounds, no guarding, no rebound, no masses appreciated . MUSCULOSKELETAL: Normal range of motion at all joints. No bony deformities or tenderness. No CVA tenderness. EXTREMITIES: 2+ pulses, warm, well-perfused. No calf tenderness. No peripheral edema. NEUROLOGICAL: Cranial nerves II-XII intact. Normal speech. PSYCHIATRIC: Cooperative. Good eye contact. Appropriate mood and affect. SKIN: Warm, dry, normal turgor, no rashes or lesions noted. CBCD WBC 0.3 K/mm3 (4.0-10.0) L* D 06/13/16 07:05 RBC 2.68 M/mm3 (3.60-5.2) L 06/13/16 07:05 Hgb 7.3 GM/dL (10.7-15.3) L 06/13/16 07:05 Hct 21.6 % (32.4-45.2) L 06/13/16 07:05 MCV 80.4 fl (80-96) 06/13/16 07:05 MCHC 34.1 g/dl (32.0-36.0) 06/13/16 07:05 RDW 17.3 % (11.6-15.6) H 06/13/16 07:05 Plt Count 8 K/MM3 (134-434) L* D 06/13/16 07:05 MPV 8.8 fl (7.5-11.1) 06/13/16 07:05 CMP Sodium 137 mmol/L (136-145) 06/13/16 07:00 Potassium 3.7 mmol/L (3.5-5.1) 06/13/16 07:00 Chloride 100 mmol/L (98-107) 06/13/16 07:00 Carbon Dioxide 29 mmol/L (21-32) 06/13/16 07:00 Anion Gap 8 (8-16) 06/13/16 07:00 BUN 16 mg/dL (7-18) 06/13/16 07:00 Creatinine 0.4 mg/dL (0.55-1.02) L 06/13/16 07:00 Creat Clearance w eGFR > 60 (>60) 06/13/16 07:00 Random Glucose 125 mg/dL (74-106) H 06/13/16 07:00 Calcium 7.7 mg/dL (8.5-10.1) L 06/13/16 07:00 Total Bilirubin 0.8 mg/dL (0.2-1.0) D 06/13/16 07:00 AST 29 U/L (15-37) D 06/13/16 07:00 ALT 98 U/L (12-78) H D 06/13/16 07:00 Alkaline Phosphatase 136 U/L (45-117) H 06/13/16 07:00 Total Protein 5.0 g/dl (6.4-8.2) L 06/13/16 07:00 Albumin 1.5 g/dl (3.4-5.0) L 06/13/16 07:00 CARDIAC ENZYMES Creatine Kinase 66 IU/L (26-192) 06/06/16 20:00 Troponin I < 0.02 ng/ml (0.00-0.05) 06/06/16 20:00 Current Medications Generic Name Dose Route Start Last Admin Trade Name Freq PRN Reason Stop Dose Admin Acetaminophen 650 mg 06/12/16 21:09 06/13/16 18:46 Tylenol - PO 650 mg Q6H PRN Administration FEVER OR PAIN Docusate Sodium 100 mg 06/13/16 17:00 06/14/16 09:01 Colace - PO 100 mg DAILY [facility] Administration Dronabinol 2.5 mg 06/13/16 08:00 06/14/16 08:53 Marinol - PO 2.5 mg BID@0800,1700 [facility] Administration Meropenem 1 gm/ Dextrose 100 mls @ 200 mls/hr 06/13/16 02:00 06/14/16 11:10 IVPB 200 mls/hr Q8H-IV OPAL Administration Protocol Pantoprazole Sodium 100 mls @ 200 mls/hr 06/13/16 10:00 06/14/16 09:01 Protonix 40mg Ivpb (Pre-Docked) IVPB 200 mls/hr DAILY [facility] Administration Lidocaine 1 patch 06/15/16 10:00 Lidoderm Patch - TP DAILY [facility] Morphine Sulfate 2 mg 06/13/16 19:14 06/14/16 17:20 Morphine Injection - IVPUSH 2 mg Q4H PRN Administration PAIN Ondansetron HCl 4 mg 06/12/16 21:09 06/14/16 17:33 Zofran Injection IVPB 4 mg Q6H PRN Administration NAUSEA Home Medications Medication Instructions Recorded Calcium Carbonate/Vitamin D3 1 each PO BID 06/06/16 [Calcium 600 + Vit D 200 Tablet] Gabapentin [Neurontin -] 100 mg PO TID 06/06/16 Gluc Schmitz/Chondro Schmitz A/Vit C/Mn 1 each PO DAILY 06/06/16 [Glucosamine 1,500 Complex Cp] Montelukast Na [Singulair -] 10 mg PO DAILY 06/06/16 Multivitamin with Minerals [Icaps 1 each PO DAILY 06/06/16 Plus] Omeprazole 20 mg PO DAILY 06/06/16 Valacyclovir HCl [Valtrex -] 500 mg PO BID 06/06/16 Alendronate Na [Fosamax] 70 mg PO Q7D 06/07/16 Biotin 10,000 mcg PO DAILY 06/07/16 Lactobacillus Acidophilus 1 each PO DAILY 06/07/16 [Acidophilus] Magnesium Oxide [Magnesium] 500 mg PO DAILY 06/07/16 Selenium 200 mcg PO DAILY 06/07/16 Vitamin B Complex/Minerals [Sm 1 each PO DAILY 06/07/16 Stress Formula+Zinc Tablet] Zinc 50 mg PO DAILY 06/07/16 CT abd showed R hydronephrosis and ureter with no stone . will obtain post void bladder scan as bladder was distended on CT scan . Further w/u is needed if no retention ASSESSMENT AND PLAN: 75 y/o pleasant unfortunate lady with h/o Waldenstrome lymphoma, pancytopenia and recurrent transfusions , h/o syphlitis , PNAs, who presented with fever . She was found to be in septic shock and bacteremic on admission. # S/p Septic shock . Final culture positive for E.Coli (2/2) bacteremia sensitive to everything , on Merepenem IV continue ,ID on the case , repeat blood cx neg to date. BP is doing better SBP in 108 today. # Acute Pancytopenia due to chemo therapy ( last received Daratumunab 2 weeks ago) . has Abs C .s/p PRBCs C neg. transfusion s/p platelets transfusion as well ( baseline is around 13K) is 8k # Acute Right hydronephrosis and ureter with no stone . will get post void bladder scan since reported bladder distention on CT scan . # RADHAMES : improved s/p IVF Code status :DNR/DNI Waiting for bed in [place] to tx the patient
[2016-06-15] MEDS: MEROPENEM 1 GM in DEXTROSE 5%-WATER - 100 ML IVPB SCH ×2 (01:28→09:31)
[2016-06-15] MEDS: morphine CARPU-JECT 2 MG/1 ML DISP.SYRIN IVPUSH PRN ×3 (02:16→09:32)
--- NOTE | 2016-06-15 06:56 | PN ---
Progress Note (short form) - Note Progress Note: Patient seen and examined ROS No headache, diplopia, "tickle" in throat , occasional chest "cramp", but not true pains, some nausea, and emesis, no diarrhea, constipation, complains of bed sore in sacrococcygeal area, c/o weakness, no back or bone pains, no dysuria , hematuria Last Vital Signs Temp Pulse Resp BP Pulse Ox 98.6 F 90 18 109/60 97 06/15/16 02:00 06/15/16 02:00 06/15/16 02:00 06/15/16 02:00 06/14/16 21:00 HEENT: EDD, EOM Intact Oropharynx: No thrush, No mucositis Neck: Supple Cor: RSR, No murmurs, No gallops Lungs: diminished breath sounds bilaterally Abd: Soft, Normal bowel sounds, No organomegaly Ext:No significant edema Skin: No rashes, Integument intact Ecchymoses skin Sacrococcygeal bed sore CBC, BMP 06/13/16 07:05 06/13/16 07:00 Current Medications Generic Name Dose Route Start Last Admin Trade Name Freq PRN Reason Stop Dose Admin Acetaminophen 650 mg 06/12/16 21:09 06/13/16 18:46 Tylenol - PO 650 mg Q6H PRN Administration FEVER OR PAIN Docusate Sodium 100 mg 06/13/16 17:00 06/14/16 09:01 Colace - PO 100 mg DAILY [facility] Administration Dronabinol 2.5 mg 06/13/16 08:00 06/14/16 18:22 Marinol - PO Not Given BID@0800,1700 [facility] Meropenem 1 gm/ Dextrose 100 mls @ 200 mls/hr 06/13/16 02:00 06/15/16 01:28 IVPB 200 mls/hr Q8H-IV OPAL Administration Protocol Pantoprazole Sodium 100 mls @ 200 mls/hr 06/13/16 10:00 06/14/16 09:01 Protonix 40mg Ivpb (Pre-Docked) IVPB 200 mls/hr DAILY [facility] Administration Lidocaine 1 patch 06/15/16 10:00 Lidoderm Patch - TP DAILY [facility] Morphine Sulfate 2 mg 06/13/16 19:14 06/15/16 05:42 Morphine Injection - IVPUSH 2 mg Q4H PRN Administration PAIN Ondansetron HCl 4 mg 06/12/16 21:09 06/14/16 17:33 Zofran Injection IVPB 4 mg Q6H PRN Administration NAUSEA INR, PTT INR 1.61 (0.82-1.09) H 06/11/16 05:00 Fibrinogen 651.0 mg/dL (238-498) H 06/08/16 20:45 Impression: End stage Waldenstrom's Macroglobulinemia Pancytopenia secondary to WM and treatments ( last treat daratumumab) Transfusion of packed cells and platelets\\ Sepsis on antibiotics per ID Hydronephrosis with E.coli ?? GB pathology Sacrococcygeal decubitus Anorexia Plan: Transfuse packed cells for Hct 20%-21% Transfuse platelets for platelet count of 10K or less Decubitus therapy Antibiotics per I.D. Awaiting [place] On Marinol/Ensure DNR/DNI
[2016-06-15 08:22] LABS: MCHC 33.5 g/dl (32.0-36.0); MEAN CELL VOLUME 80.7 fl (80-96); MEAN PLT VOLUME 9.2 fl (7.5-11.1); NEUTROPHILS 10.4 % (42.8-82.8); RDW 17.5 % (11.6-15.6)
[2016-06-15] MEDS: DRONABINOL 2.5 MG CAPSULE PO SCH (08:30)
[2016-06-15 08:32] LABS: PLATELET COUNT 13 K/MM3 (134-434); WHITE BLOOD COUNT 0.4 K/mm3 (4.0-10.0)
[2016-06-15 08:55] LABS: ALBUMIN 1.8 g/dl (3.4-5.0); ANION GAP 7 (8-16); CALCIUM 7.6 mg/dL (8.5-10.1); CO2 31 mmol/L (21-32); GLUCOSE,RANDOM 89 mg/dL (74-106)
[2016-06-15 08:57] LABS: CREATININE 0.4 mg/dL (0.55-1.02); TOT PROT 5.5 g/dl (6.4-8.2)
[2016-06-15 09:01] LABS: ALK PHOS 151 U/L (45-117); SGOT/AST 36 U/L (15-37); SGPT/ALT 108 U/L (12-78)
[2016-06-15] MEDS: DOCUSATE SODIUM 100 MG CAPSULE (FP) PO SCH (09:32)
[2016-06-15] MEDS: PANTOPRAZOLE SODIUM 100 ML IVPB SCH (09:41)
[2016-06-15] MEDS ORDERED: LIDOCAINE 5% TOPICAL PATCH TP SCH (10:00)
[2016-06-15 10:07] VITALS: BP 105/55; PULSE 95; TEMP 97.3
--- NOTE | 2016-06-15 10:52 | PN ---
Physical Exam: SUBJECTIVE: Patient seen and examined OBJECTIVE: Vital Signs Temperature 97.3 F L 06/15/16 10:00 Pulse Rate 95 H 06/15/16 10:00 Respiratory Rate 18 06/15/16 10:00 Blood Pressure 105/55 06/15/16 10:00 O2 Sat by Pulse Oximetry (%) 97 06/14/16 21:00 GENERAL: The patient is awake, alert, and fully oriented, in no acute distress. HEAD: Normal with no signs of trauma. EYES: PERRL, extraocular movements intact, sclera anicteric, conjunctiva clear. No ptosis. ENT: Ears normal, nares patent, oropharynx clear without exudates, moist mucous membranes. NECK: Trachea midline, full range of motion, supple. LUNGS: Breath sounds equal, clear to auscultation bilaterally, no wheezes, no crackles, no accessory muscle use. HEART: Regular rate and rhythm, S1, S2 without murmur, rub or gallop. ABDOMEN: Soft, nontender, nondistended, normoactive bowel sounds, no guarding, no rebound, no hepatosplenomegaly, no masses. EXTREMITIES: 2+ pulses, warm, well-perfused, no edema. NEUROLOGICAL: Cranial nerves II through XII grossly intact. Normal speech, gait not observed. PSYCH: Normal mood, normal affect. SKIN: Warm, dry, normal turgor, no rashes or lesions noted Laboratory Results - last 24 hr 06/10/16 06/15/16 06/15/16 11:40 06:35 06:35 WBC 0.4 L* D RBC 2.61 L Hgb 7.0 L Hct 21.0 L MCV 80.7 MCHC 33.5 RDW 17.5 H Plt Count 13 L* D MPV 9.2 Neutrophils % 10.4 L D Lymphocytes % 86.2 H Monocytes % 3.4 L Eosinophils % 0.0 D Basophils % 0.0 Sodium 134 L Potassium 4.3 Chloride 96 L Carbon Dioxide 31 Anion Gap 7 L BUN 13 Creatinine 0.4 L Creat Clearance w eGFR > 60 Random Glucose 89 D Calcium 7.6 L Total Bilirubin 1.0 D AST 36 D ALT 108 H Alkaline Phosphatase 151 H Total Protein 5.5 L Albumin 1.8 L Crossmatch See Detail Active Medications Generic Name Dose Route Start Last Admin Trade Name Freq PRN Reason Stop Dose Admin Acetaminophen 650 mg 06/12/16 21:09 06/13/16 18:46 Tylenol - PO 650 mg Q6H PRN Administration FEVER OR PAIN Docusate Sodium 100 mg 06/13/16 17:00 06/15/16 09:32 Colace - PO 100 mg DAILY [facility] Administration Dronabinol 2.5 mg 06/13/16 08:00 06/15/16 08:30 Marinol - PO 2.5 mg BID@0800,1700 [facility] Administration Meropenem 1 gm/ Dextrose 100 mls @ 200 mls/hr 06/13/16 02:00 06/15/16 09:31 IVPB 200 mls/hr Q8H-IV [facility] Administration Protocol Pantoprazole Sodium 100 mls @ 200 mls/hr 06/13/16 10:00 06/15/16 09:41 Protonix 40mg Ivpb (Pre-Docked) IVPB 200 mls/hr DAILY [facility] Administration Lidocaine 1 patch 06/15/16 10:00 06/15/16 09:31 Lidoderm Patch - TP 1 patch DAILY [facility] Administration Morphine Sulfate 2 mg 06/13/16 19:14 06/15/16 09:32 Morphine Injection - IVPUSH 2 mg Q4H PRN Administration PAIN Ondansetron HCl 4 mg 06/12/16 21:09 06/14/16 17:33 Zofran Injection IVPB 4 mg Q6H PRN Administration NAUSEA CT abd showed R hydronephrosis and ureter with no stone . will obtain post void bladder scan as bladder was distended on CT scan . Further w/u is needed if no retention. ASSESSMENT AND PLAN: 75 y/o pleasant unfortunate lady with h/o Waldenstrome lymphoma, pancytopenia and recurrent transfusions , h/o syphlitis , PNAs, who presented with fever . She was found to be in septic shock and bacteremic on admission. # S/p Septic shock . Final culture positive for E.Coli (2/2) bacteremia sensitive to everything , On Merepenem IV continue, ID on the case , repeat blood cx neg to date. BP is doing better SBP in 108 today. # Acute Pancytopenia due to chemo therapy ( last received Daratumunab 2 weeks ago) . has Abs C .s/p PRBCs C neg. transfusion s/p platelets transfusion as well ( baseline is around 13K) is 8k # Acute Right hydronephrosis and ureter with no stone . will get post void bladder scan since reported bladder distention on CT scan . # RADHAMES : improved s/p IVF Code status :DNR/DNI Waiting for bed in [place] to de the patient Visit type - Emergency Visit Emergency Visit: Yes ED Registration Date: 06/07/16 Care time: The patient presented to the Emergency Department on the above date and was hospitalized for further evaluation of their emergent condition. - New Patient This patient is new to me today: No - Critical Care Critical Care patient: No - Discharge Referral Referred to [facility] Med P.C.: No
--- NOTE | 2016-06-15 11:19 | DS ---
Physical Exam: SUBJECTIVE: Patient seen and examined Patient is feeling better. No fever or chills. OBJECTIVE: Vital Signs Temperature 97.3 F L 06/15/16 10:00 Pulse Rate 95 H 06/15/16 10:00 Respiratory Rate 18 06/15/16 10:00 Blood Pressure 105/55 06/15/16 10:00 O2 Sat by Pulse Oximetry (%) 97 06/14/16 21:00 PHYSICAL EXAM GENERAL: Awake, alert, and fully oriented, in no acute distress. lying in bed comfortably. HEAD: Normal with no signs of trauma. EYES: Pupils equal, round and reactive to light, extraocular movements intact, sclera anicteric, conjunctiva clear. EARS, NOSE, THROAT: Ears normal, oropharynx clear without exudates. Moist mucous membranes. NECK: Normal range of motion, supple without lymphadenopathy, JVD, or masses. LUNGS: Breath sounds equal, clear to auscultation bilaterally. No wheezes, and no crackles. No accessory muscle use. HEART: Regular rate and rhythm, normal S1 and S2 without murmur, rub or gallop. ABDOMEN: Soft, nontender, not distended, normoactive bowel sounds, no guarding, no rebound, no masses appreciated . MUSCULOSKELETAL: Normal range of motion at all joints. No bony deformities or tenderness. No CVA tenderness. EXTREMITIES: 2+ pulses, warm, well-perfused. No calf tenderness. No peripheral edema. NEUROLOGICAL: Cranial nerves II-XII intact. Normal speech. PSYCHIATRIC: Cooperative. Good eye contact. Appropriate mood and affect. SKIN: Warm, dry, normal turgor, no rashes or lesions noted. LABS CBCD WBC 0.4 K/mm3 (4.0-10.0) L* D 06/15/16 06:35 RBC 2.61 M/mm3 (3.60-5.2) L 06/15/16 06:35 Hgb 7.0 GM/dL (10.7-15.3) L 06/15/16 06:35 Hct 21.0 % (32.4-45.2) L 06/15/16 06:35 MCV 80.7 fl (80-96) 06/15/16 06:35 MCHC 33.5 g/dl (32.0-36.0) 06/15/16 06:35 RDW 17.5 % (11.6-15.6) H 06/15/16 06:35 Plt Count 13 K/MM3 (134-434) L* D 06/15/16 06:35 MPV 9.2 fl (7.5-11.1) 06/15/16 06:35 CMP Sodium 134 mmol/L (136-145) L 06/15/16 06:35 Potassium 4.3 mmol/L (3.5-5.1) 06/15/16 06:35 Chloride 96 mmol/L (98-107) L 06/15/16 06:35 Carbon Dioxide 31 mmol/L (21-32) 06/15/16 06:35 Anion Gap 7 (8-16) L 06/15/16 06:35 BUN 13 mg/dL (7-18) 06/15/16 06:35 Creatinine 0.4 mg/dL (0.55-1.02) L 06/15/16 06:35 Creat Clearance w eGFR > 60 (>60) 06/15/16 06:35 Random Glucose 89 mg/dL (74-106) D 06/15/16 06:35 Calcium 7.6 mg/dL (8.5-10.1) L 06/15/16 06:35 Total Bilirubin 1.0 mg/dL (0.2-1.0) D 06/15/16 06:35 AST 36 U/L (15-37) D 06/15/16 06:35 ALT 108 U/L (12-78) H 06/15/16 06:35 Alkaline Phosphatase 151 U/L (45-117) H 06/15/16 06:35 Total Protein 5.5 g/dl (6.4-8.2) L 06/15/16 06:35 Albumin 1.8 g/dl (3.4-5.0) L 06/15/16 06:35 CARDIAC ENZYMES Creatine Kinase 66 IU/L (26-192) 06/06/16 20:00 Troponin I < 0.02 ng/ml (0.00-0.05) 06/06/16 20:00 CT abd showed R hydronephrosis and ureter with no stone . will obtain post void bladder scan as bladder was distended on CT scan . Further w/u is needed if no retention. HOSPITAL COURSE: Date of Admission:06/07/16 Date of Discharge: 06/15/16 75 y/o pleasant unfortunate lady with h/o Waldenstrome lymphoma, pancytopenia and recurrent transfusions , h/o syphlitis , PNAs, who presented with fever . She was found to be in septic shock and bacteremic on admission. # Acute Neutropenic fever on Meropenen for 3 more days then switch to po Augmentin for 4 more days if patient spikes fever do not switch to oral antibiotic as per ID. # S/p Septic shock . Final culture positive for E.Coli (2/2) bacteremia sensitive to everything , On Merepenem IV continue, ID on the case , repeat blood cx neg to date. BP is doing better SBP in 108 today. Meropenen for 3 more days then switch to po Augmentin for 4 more days if patient spikes fever do not switch to oral antibiotic as per ID. # Acute Pancytopenia due to chemo therapy ( last received Daratumunab 2 weeks ago) . has Abs C .s/p PRBCs C neg. transfusion s/p platelets transfusion as well ( baseline is around 13K) is 8k ; Transfuse platelets and RBCs as needed. # Acute Right hydronephrosis and ureter with no stone . will get post void bladder scan since reported bladder distention on CT scan . # RADHAMES : improved s/p IVF Code status :DNR/DNI Patient is being transferred to [facility] to complete discharge: 35 Discharge Summary Reason For Visit: FEVER, WALDENSTROM'S DISEASE Current Active Problems Anemia (Acute) Fever (Acute) Gallstone (Acute) Gram-negative bacteremia (Acute) Neutropenic fever (Acute) Pancytopenia (Acute) Sepsis (Acute) Septic shock (Acute) Shock (Acute) Thrombocytopenia (Acute) Waldenstrom's disease (Acute) Condition: Stable - Instructions Diet, Activity, Other Instructions: continue diet as tolerated , transfuse as needed. Meropenen for 3 more days then switch to Augmentin for 4 more days if patient spikes fever do not switch to oral antibiotic. Disposition: TRANSFER ACUTE CARE/OTHER HOSP - Home Medications Comprehensive Discharge Medication List: Ambulatory Orders Calcium Carbonate/Vitamin D3 [Calcium 600 + Vit D 200 Tablet] 1 each PO BID 03/12 Gabapentin [Neurontin -] 100 mg PO TID 06/06/16 Gluc Schmitz/Chondro Schmitz A/Vit C/Mn [Glucosamine 1,500 Complex Cp] 1 each PO DAILY 03/12 Montelukast Na [Singulair -] 10 mg PO DAILY 06/06/16 Multivitamin with Minerals [Icaps Plus] 1 each PO DAILY 06/06/16 Omeprazole 20 mg PO DAILY 06/06/16 Valacyclovir HCl [Valtrex -] 500 mg PO BID 06/06/16 Alendronate Na [Fosamax] 70 mg PO Q7D 06/07/16 Biotin 10,000 mcg PO DAILY 06/07/16 Lactobacillus Acidophilus [Acidophilus] 1 each PO DAILY 06/07/16 Magnesium Oxide [Magnesium] 500 mg PO DAILY 06/07/16 Selenium 200 mcg PO DAILY 06/07/16 Vitamin B Complex/Minerals [Sm Stress Formula+Zinc Tablet] 1 each PO DAILY 06/07 Zinc 50 mg PO DAILY 06/07/16 This patient is new to me today: No Emergency Visit: Yes ED Registration Date: 06/07/16 Care time: The patient presented to the Emergency Department on the above date and was hospitalized for further evaluation of their emergent condition. Critical Care patient: No - Discharge Referral Referred to [facility] Med P.C.: No
--- NOTE | 2016-06-15 11:34 | PN ---
Progress Note, Physician History of Present Illness: patient stable has been afebrile feeling better - Current Medication List Current Medications: Active Medications Acetaminophen (Tylenol -) 650 mg PO Q6H PRN PRN Reason: FEVER OR PAIN Last Admin: 06/13/16 18:46 Dose: 650 mg Docusate Sodium (Colace -) 100 mg PO DAILY [facility] Last Admin: 06/15/16 09:32 Dose: 100 mg Dronabinol (Marinol -) 2.5 mg PO BID@0800,1700 [facility] Last Admin: 06/15/16 08:30 Dose: 2.5 mg Meropenem 1 gm/ Dextrose 100 mls @ 200 mls/hr IVPB Q8H-IV [facility] PRN Reason: Protocol Last Admin: 06/15/16 09:31 Dose: 200 mls/hr Pantoprazole Sodium (Protonix 40mg Ivpb (Pre-Docked)) 100 mls @ 200 mls/hr IVPB DAILY [facility] Last Admin: 06/15/16 09:41 Dose: 200 mls/hr Lidocaine (Lidoderm Patch -) 1 patch TP DAILY [facility] Last Admin: 06/15/16 09:31 Dose: 1 patch Morphine Sulfate (Morphine Injection -) 2 mg IVPUSH Q4H PRN PRN Reason: PAIN Last Admin: 06/15/16 09:32 Dose: 2 mg Ondansetron HCl (Zofran Injection) 4 mg IVPB Q6H PRN PRN Reason: NAUSEA Last Admin: 06/14/16 17:33 Dose: 4 mg - Objective Vital Signs: Vital Signs Temperature 97.3 F L 06/15/16 10:00 Pulse Rate 95 H 06/15/16 10:00 Respiratory Rate 18 06/15/16 10:00 Blood Pressure 105/55 06/15/16 10:00 O2 Sat by Pulse Oximetry (%) 97 06/14/16 21:00 Constitutional: Yes: No Distress, Calm Cardiovascular: Yes: Regular Rate and Rhythm Respiratory: Yes: Regular, CTA Bilaterally Gastrointestinal: Yes: Normal Bowel Sounds, Soft, Distention Musculoskeletal: Yes: WNL Extremities: Yes: WNL Neurological: Yes: Alert, Oriented Psychiatric: Yes: Alert Labs: CBC, BMP 06/15/16 06:35 06/15/16 06:35 INR, PTT INR 1.61 (0.82-1.09) H 06/11/16 05:00 Fibrinogen 651.0 mg/dL (238-498) H 06/08/16 20:45 Assessment/Plan Neutropenic fever Pancytopenic Waldernstrom's lymphoma fever bacteremia gram negative dehydration Problem List - Problems (1) Fever Code(s): R50.9 - FEVER, UNSPECIFIED (2) Neutropenic fever Code(s): D70.9 - NEUTROPENIA, UNSPECIFIED R50.81 - FEVER PRESENTING WITH CONDITIONS CLASSIFIED ELSEWHERE (3) Pancytopenia Code(s): D61.818 - OTHER PANCYTOPENIA (4) Waldenstrom's disease Code(s): C88.0 - WALDENSTROM MACROGLOBULINEMIA (5) Thrombocytopenia Code(s): D69.6 - THROMBOCYTOPENIA, UNSPECIFIED (6) Anemia Code(s): D64.9 - ANEMIA, UNSPECIFIED (7) Sepsis Code(s): A41.9 - SEPSIS, UNSPECIFIED ORGANISM (8) Shock Code(s): R57.9 - SHOCK, UNSPECIFIED (9) Septic shock Code(s): A41.9 - SEPSIS, UNSPECIFIED ORGANISM R65.21 - SEVERE SEPSIS WITH SEPTIC SHOCK (10) Gram-negative bacteremia Code(s): R78.81 - BACTEREMIA plan iv abx for 3 more days then switch to oral augmentin for 4 more days
--- NOTE | 2016-06-16 23:26 | DS ---
Physical Exam: LABS Laboratory Tests 06/06/16 06/15/16 20:00 06:35 WBC 0.5 L 0.4 L* D Hgb 5.9 L* 7.0 L Hct 17.3 L 21.0 L Plt Count 8 L* 13 L* D Microbiology 06/11/16 15:30 Blood - Peripheral Venous Blood Culture - Final NO GROWTH AFTER 5 DAYS INCUBATION 06/11/16 15:30 Blood - Peripheral Venous Blood Culture - Final NO GROWTH AFTER 5 DAYS INCUBATION 06/07/16 22:10 Nasopharyngeal Swab Respiratory Virus Panel - Preliminary 06/08/16 05:55 Blood - Peripheral Venous Blood Culture - Final NO GROWTH AFTER 5 DAYS INCUBATION 06/08/16 05:45 Blood - Peripheral Venous Blood Culture - Final NO GROWTH AFTER 5 DAYS INCUBATION 06/06/16 20:00 Blood - Peripheral Venous Blood Culture - Final Escherichia Coli 06/06/16 20:00 Blood - Peripheral Venous Blood Culture - Final Escherichia Coli 06/07/16 06:44 Urine - Urine Clean Catch Urine Culture - Final 06/07/16 22:10 Nasopharyngeal Swab Influenza Types A,B Antigen (LUISANA) - Final 06/07/16 22:10 Nasopharyngeal Swab - Final IMAGING abd CT w/o contrast: Over distended gallbladder with a stone measuring 2.[address] evidence of acute cholecystitis. Dilated common bile duct for which further evaluation is needed. Hepatosplenomegaly. Mild right renal hydronephrosis and proximal hydroureter without evidence of an obstructing stone. ultrasound abd: Findings suspicious for impacted gallstone in the neck of the gallbladder with gallbladder wall thickening, concerning for cholecystitis. Dilated CBD is noted and cannot exclude obstructing stone distal to this. HOSPITAL COURSE: Date of Admission:06/07/16 - Date of Discharge: 06/16/16 75 y/o woman with h/o Waldenstrom macroglobuniema undergoing chemo with Daratumunab (last dose 2 weeks prior to admission) pancytopenic and recurrent transfusions, h/o typhlitis, PNAs, who presented with fever, found to be in septic shock with gram negative bactermia. Blood pressure required dopamine drip and fluids until she was stable. Her pancytopenia was treated with a total of 6 units of prbc's, 6 units of leukoreduced platelets and 1 unit of FFP.. She was started on Cefepime and meropenem, through which she continued to spike fevers. Duplex for DVT's was negative. Abdomen CT and ultrasound were suspicious for cholecystitis. Patient declined any further intervention for cholecystits. After extensive conversation with surgical, ICU and primary team including ERCP and drain were declined. Patient and family agreed on palliative care and chose to be transferred to [facility]. Minutes to complete discharge: 36 Discharge Summary Reason For Visit: FEVER, WALDENSTROM'S DISEASE Condition: Stable - Instructions Diet, Activity, Other Instructions: continue diet as tolerated , transfuse as needed. Meropenen for 3 more days then switch to Augmentin for 4 more days if patient spikes fever do not switch to oral antibiotic. Disposition: TRANSFER ACUTE CARE/OTHER HOSP - Home Medications Comprehensive Discharge Medication List: Ambulatory Orders Calcium Carbonate/Vitamin D3 [Calcium 600-Vit D3 200 Tablet] 1 each PO BID 06/06 Gabapentin [Neurontin -] 100 mg PO TID 06/06/16 Gluc Schmitz/Chondro Schmitz A/Vit C/Mn [Glucosamine 1,500 Complex Cp] 1 each PO DAILY 03/12 Montelukast Na [Singulair -] 10 mg PO DAILY 06/06/16 Multivitamin with Minerals [Icaps Plus] 1 each PO DAILY 06/06/16 Omeprazole 20 mg PO DAILY 06/06/16 Valacyclovir HCl [Valtrex -] 500 mg PO BID 06/06/16 Biotin 10,000 mcg PO DAILY 06/07/16 Lactobacillus Acidophilus [Acidophilus] 1 each PO DAILY 06/07/16 Magnesium Oxide [Magnesium] 500 mg PO DAILY 06/07/16 Selenium 200 mcg PO DAILY 06/07/16 Vitamin B Complex/Minerals [Sm Stress Formula+Zinc Tablet] 1 each PO DAILY 06/07 Zinc 50 mg PO DAILY 06/07/16 Acetaminophen [Tylenol .Regular Strength -] 650 mg PO Q6H PRN #0 tablet Docusate Sodium [Colace -] 100 mg PO DAILY capsule 06/15/16 Dronabinol [Marinol -] 2.5 mg PO BID@0800,1700 capsule MDD 2 06/15/16 Lidocaine 5% Patch [Lidoderm -] 1 patch TP DAILY patch 06/15/16 Meropenem [Merrem (Restricted To Id) -] 1 gm IVPB Q8H-IV vial 06/15/16 Morphine Injection - [Morphine Injection 2 mg/1 mL -] 2 mg IVPUSH Q4H PRN #0 disp.syrin MDD 6 06/15/16 Ondansetron Injection [Zofran Injection] 4 mg IVPB Q6H PRN #0 vial 06/15/16 This patient is new to me today: No Emergency Visit: No Critical Care patient: No - Discharge Referral Referred to [facility] Med [facility].: No
== END 2016-06-15 14:18 | disposition hospice, inpatient (51) | DRG 840 ==
LOC: JER 17:44 → JERBED 06-07 01:15 → JICU 06-07 20:18 → J7W 06-12 20:45
PROVIDERS: ADMIT Internal Medicine; ATTEND Internal Medicine
PROC: 05HQ33Z Insertion of Infusion Device into Left External Jugular Vein, Percutaneous Approach (ICD-10-PCS; principal; 2016-06-07)
PROC: 30233R1 Transfusion of Nonautologous Platelets into Peripheral Vein, Percutaneous Approach (ICD-10-PCS; 2016-06-07)
PROC: 30233L1 Transfusion of Nonautologous Fresh Plasma into Peripheral Vein, Percutaneous Approach (ICD-10-PCS; 2016-06-07)
PROC: 30233N1 Transfusion of Nonautologous Red Blood Cells into Peripheral Vein, Percutaneous Approach (ICD-10-PCS; 2016-06-07)
DX: C88.0 Waldenstrom macroglobulinemia (principal); A41.51 Sepsis due to Escherichia coli [E. coli]; R65.21 Severe sepsis with septic shock; D61.818 Other pancytopenia; N17.9 Acute kidney failure, unspecified; N13.30 Unspecified hydronephrosis; D70.8 Other neutropenia; R50.81 Fever presenting with conditions classified elsewhere; D69.6 Thrombocytopenia, unspecified; R04.0 Epistaxis; K80.50 Calculus of bile duct without cholangitis or cholecystitis without obstruction; R63.0 Anorexia; Z68.22 Body mass index [BMI] 22.0-22.9, adult; Z66 Do not resuscitate
CPT/HCPCS: 36415; 36430; 71010-TC; 74176-TC; 76705-TC; 80048; 80053; 81003; 81015; 82550; 82803; 83010; 83605; 83615; 83735; 84100; 84484; 85025; 85027; 85362; 85384; 85610; 85730; 86850; 86870; 86880; 86900; 86901; 86902; 86922; 87040; 87086; 87186; 87254; 87804; 93005; 93010; 93970-TC; 97116-GP; 97162-PG; 99285-25; P9017; P9034; P9038; P9058